=== PATIENT | female | born 1960 | race Caucasian/White ===

== ENCOUNTER 2024-02-15 13:26 | Inpatient (IN) | payer BC, MEDICARE, SELFPAY ==
--- NOTE | ~2024-02-15 | XR_ITS ---
EXAMINATION: XR CHEST CLINICAL INFORMATION: Severe pain at left upper quadrant. COMPARISON: None available. TECHNIQUE: Frontal view of the chest was obtained. FINDINGS: The lungs are mildly hypoexpanded. Mildly increased interstitial markings bilaterally. Hazy left basilar opacities. Streaky right basilar opacities. Retrocardiac density with lucency likely suggesting hiatal hernia and correlating to findings on CT performed on the same date. No pneumothorax. No right-sided pleural effusion. Trace left pleural effusion. The cardiomediastinal silhouette is within normal limits. Degenerative changes of thoracic spine. No acute osseous abnormality. IMPRESSION Hazy left basilar opacities which may be secondary to atelectasis or infectious/inflammatory etiology. Streaky right basilar opacities likely favoring atelectasis. Trace left pleural effusion. Large hiatal hernia better evaluated on CT done on the same date. Increased interstitial markings which may be exaggerated by low lung volumes or may represent mild interstitial edema.
--- NOTE | ~2024-02-15 | CT_ITS ---
EXAMINATION: CT CHEST, ABDOMEN WITHOUT CONTRAST. CLINICAL INFORMATION: severe left sided pain. COMPARISON: Abdominal and pelvic CT scan from approximately 30 minutes earlier today TECHNIQUE: Multidetector volumetric imaging was performed from the thoracic inlet through the pelvic brim without intravenous contrast. Oral contrast was given just prior to scanning. Sagittal and coronal reformatted images were obtained on the technologist workstation. This CT examination was performed using dose optimization techniques as appropriate, variously including the following: *Automated exposure control *Adjustment of mA and/or kV according to patient size (this includes techniques or standardized protocols for targeted exams where dose is matched to indication/reason for exam; i.e. extremities or head) *Use of iterative reconstruction technique DLP: 543 mGy-cm FINDINGS: CHEST: Lungs: There is persistent dense consolidation in the dependent left lower lobe and milder more likely atelectatic changes at the contralateral right base. Central airways are grossly unremarkable. No significant effusion or pneumothorax. Mediastinum: No bulky adenopathy. Moderate-sized hiatal hernia is again noted. Patient was given oral contrast just prior to scanning in the oral contrast is seen extending into the duodenum. No obstructive changes from the hiatal hernia. Coronary Artery Calcification: Absent Pericardium/Pleura: No significant effusion. No pleural mass or thickening. Chest Wall/Axilla: Unremarkable. ABDOMEN/PELVIS: Peritoneal Space:No significant free air or free fluid identified. Liver, Gallbladder, Biliary Tree: The non contrast liver is normal in size, shape, and attenuation. No focal hepatic lesion or biliary ductal dilatation is visualized on this noncontrast study. The gallbladder evidenced dental fundal fold but otherwise is unremarkable with no evidence of radiopaque gallstones, gallbladder wall thickening, or obvious pericholecystic inflammatory changes. Pancreas: Unremarkable. Spleen: Unremarkable. Adrenal Glands: Unremarkable. Kidneys and Ureters: The kidneys are normal in size, shape, and attenuation. Contrast is seen within both collecting systems. No hydronephrosis, hydroureter, or perinephric stranding. No calculi. Gastrointestinal Tract: Again a moderate-sized hiatal hernia seen. There does no obstructive changes seen with oral contrast given passing through this area into the visualized duodenum. No obstructive changes to the small bowel. Colon is decompressed. Incidental retrocecal appendix of no clinical significance. Abdominal Wall: No significant hernia is appreciated. Lymphovascular Structures: Minimal vascular calcification within the aorta. No bulky adenopathy CT/CT abdomen wo IV con IMPRESSION: 1. Persistent dense consolidation in the dependent left lower lobe suggesting aspiration or infectious etiology. 2. Moderate-sized hiatal hernia again noted. No obstructive changes to the bowel. No acute process seen within the abdomen.
--- NOTE | ~2024-02-15 | CT_ITS ---
EXAMINATION: CT ABDOMEN AND PELVIS WITH CONTRAST CLINICAL INFORMATION: Severe left flank pain COMPARISON: None available. TECHNIQUE: Multidetector volumetric images were obtained from the superior aspect of the liver through the pubic symphysis following administration 85 mL of Omnipaque 350 intravenous contrast. Sagittal and coronal reformatted images were obtained on the technologist's workstation. Oral contrast: No This CT examination was performed using dose optimization techniques as appropriate, variously including the following: *Automated exposure control *Adjustment of mA and/or kV according to patient size (this includes techniques or standardized protocols for targeted exams where dose is matched to indication/reason for exam; i.e. extremities or head) *Use of iterative reconstruction technique DLP: 586 mGy-cm FINDINGS: LUNG BASES: Moderate to large hiatal hernia is noted containing stomach. There is very small left pleural effusion. No right pleural effusion. IT and more consolidative opacities are noted in the left lung base in the lower lobe. Mild right basilar dependent atelectasis. Remainder of the visualized lung bases are grossly unremarkable. LIVER, GALLBLADDER, AND BILIARY TREE: The liver is normal in size, shape and attenuation. There is a 0.5 cm low-attenuation lesion in the hepatic segment 6 which is too small to characterize accurately. No biliary ductal dilatation is noted. The common bile duct is normal in caliber. No radiopaque filling defect is noted in the common bile duct. The gallbladder is unremarkable with no evidence of radiopaque gallstones, gallbladder wall thickening, or obvious pericholecystic inflammatory changes. PANCREAS: Unremarkable. SPLEEN: Unremarkable. ADRENAL GLANDS: Unremarkable. KIDNEYS AND URETERS: The kidneys are normal in size, shape, and attenuation. No hydronephrosis, hydroureter, or calculi seen. No perinephric stranding. BLADDER: Unremarkable. GASTROINTESTINAL TRACT: Moderate to large hiatal hernia containing stomach is noted. The stomach is decompressed. No abnormal small bowel dilatation. An appendix is normal. The colon is normal in caliber. No evidence of colonic wall thickening or pericolonic fat stranding. Scattered diverticulosis of the colon without acute diverticulitis. [id number] stool burden in the descending colon and rectosigmoid colon. Mild stool burden in the right-sided colon. Peritoneal cavity: There is no evidence of free intraperitoneal air or fluid. Mild stranding in the small bowel mesentery without associated adenopathy. The finding likely represent chronic mesenteric panniculitis. ABDOMINAL WALL: No significant hernia is appreciated. LYMPH NODES: Normal. VASCULAR: Unremarkable. PELVIC VISCERA: Unremarkable CT appearance of the uterus and adnexa. OSSEOUS STRUCTURES: An intraosseous hemangioma is noted in the body of T11. Mild osteopenia. No acute or suspicious osseous abnormalities are seen. CT/CT abdomen pelvis w IV con IMPRESSION: 1. No evidence of radiopaque urinary tract calculi, hydroureteronephrosis or perinephric stranding. 2. Moderate to large hiatal hernia containing stomach. 3. Colonic diverticulosis without acute diverticulitis. Moderate stool burden in the left-sided colon. 4. Very small left pleural effusion. Airspace opacities in the left lung base. Given the moderate to large hiatal hernia aspiration related changes need to be included in the differential along with other infectious or inflammatory etiology. 5. A 0.5 cm low-attenuation lesion in the hepatic segment 6 is too small to characterize accurately. However statistically may represent a cyst or a hemangioma in the absence of underlying history of malignancy. Fleischner guidelines were followed. Findings were discussed with Dr. Nunez on 02/15/2024 at 3:15 PM.
[2024-02-15 13:52] VITALS: BP 103/61; PULSE 101; RESP 18; TEMP 36.8; O2SAT 95; BMI 26.6
--- NOTE | 2024-02-15 13:52 | ED.GENADULT ---
HPI - General Adult General Chief complaint: General Medical Stated complaint: back pain Time Seen by Provider: 02/15/24 13:58 Source: patient Mode of arrival: ambulatory History of Present Illness HPI narrative: 63-year-old female without significant past medical history, no prescription medications presents with acute onset of left lower back pain radiating to the left shoulder since this morning, patient reports being lightheaded and diaphoretic. Patient denies any history renal colic. Related Data Allergies Allergy/AdvReac Type Severity Reaction Status Date / Time No Known Allergies Allergy Unverified 08/04/20 15:18 [No Known Allergies*] Review of Systems Review of Systems: Pertinent positives and negatives as stated in HPI [facility] Past Medical History Source: nursing notes reviewed Social History Social History Advance Directives: No Advance Directives Information Provided: No Physical Exam ED Vital Signs: Vital Signs - 24 hr 02/15/24 13:52 Temperature 98.2 F Pulse Rate 101 H Respiratory Rate 18 Blood Pressure 103/61 Pulse Oximetry 95 Oxygen Delivery Method Room Air BMI result Body Mass Index 26.6 VITAL SIGNS: Reviewed. GENERAL: Well developed, well nourished, in moderate distress. HEAD: Normocephalic/atraumatic EYES: PERRLA, EOMI EARS: Ext canals without abnormality NOSE: Nares patent bilateral OROPHARYNX: no oral lesions noted, posterior pharynx clear NECK: Supple, no adenopathy LUNGS: Normal breath sounds. No adventitious sounds or accessory muscle use. SpO2<95> CARDIOVASCULAR: Regular rate and rhythm without noted murmurs ABDOMEN: Soft, non-tender, non-distended with bowel sounds, no CVA tenderness MUSCULOSKELETAL: No tenderness, deformities, or effusions noted on gross inspection. EXTREMITIES: No cyanosis, clubbing or edema. SKIN: Inspection of the skin reveals no rashes NEUROLOGIC: Alert and oriented x 4. Strength and sensation to light touch were grossly intact x 4. Course Course Course Narrative: This is an RME: Additional HPI, ROS, PE not included below will be deferred to primary provider. 63 F hx of obesity presents w/ lower left back pain that shoots up to shoulder started suddenlt [employer] accompanied by dizziness, nausea, diaphoresis states she feels terrible . No hx of stones. No urinary issues. Still has her gal bladder. No trauma. PE- looks like shes in pain. Tachy, diaphoretic, uncomfortable. Plan- will take to the back room [address] Nunez aware. Medications Administered Discontinued Medications Generic Name Dose Route Start Last Admin Trade Name Freq PRN Reason Stop Dose Admin Diatrizoate Meglum/Diatrizoate Sod 30 ml 02/15/24 15:06 02/15/24 15:06 Diatrizoate Meglumine, Sodium 30 Ml Solution PO 02/15/24 15:07 30 ml ONCE ONE Administration Sodium Chloride 1,000 mls @ 999 mls/hr 02/15/24 14:15 02/15/24 16:23 Ns IV 02/15/24 15:15 Infused .Q1H1M CHANCE Infusion Piperacillin Sod/Tazobactam 50 mls @ 100 mls/hr 02/15/24 14:54 02/15/24 16:25 Sod 3.375 gm/ Sodium Chloride IV 02/15/24 15:23 100 mls/hr ONCE ONE Administration Iohexol 100 ml 02/15/24 14:38 02/15/24 14:38 Iohexol 350 Mg/Ml 100 Ml Infus..Btl IV 02/15/24 14:39 85 ml ONCE ONE Administration Ketorolac Tromethamine 15 mg 02/15/24 14:02 02/15/24 14:18 Ketorolac Tromethamine 30 Mg/Ml Vial IVPUSH 02/15/24 14:03 15 mg ONCE ONE Administration Medical Decision Making Medical Decision Making MDM Narrative: This is a 63-year-old female with history and clinical presentation concerning due to the severity of pain that patient is exhibiting in combination with acute onset. DDX: Dissection, renal colic, ACS INTERVENTION: IV fluids, IV, pain medication, labs, imaging, antibiotics Initial chest x-ray shows haziness within the left lower lobe of unclear significance.... Raising concern for pneumonia versus strange presentation for [place]. However, patient remained hemodynamically stable. On my prelim evaluation of CT scan do not appreciate any obvious vascular abnormalities, however there is a noted effusion the left lower lobe with possible infiltrate and an obvious hiatal hernia, given findings and acute onset raising concern for possible [place] hives and consulted with thoracic surgery. 1453: I discussed with Dr. Angelo regarding concerns of possible [place] hives given acute onset and severity of pain, he recommends repeat chest CT with p.o. contrast. 1514: [facility] reports left pleural effusion, but no mediastinal air. On re-evaluation patient does report improvement in pain, all imaging points toward left pleural effusion with infiltrate. I reviewed all investigations and patient has noted leukocytosis but no anemia or thrombocytopenia. Coagulation studies are within normal limits. Chemistry indices negative for MONTY/electrolyte or liver enzyme derangements, patient has a mild lactic acidosis which will likely resolve with fluid resuscitation. Urinalysis negative for UTI or hematuria. CT scan with p.o. contrast does not demonstrate extravasation. Although patient is hemodynamically stable, and reports some improvement in pain, I am concerned at the sudden onset in combination with CT scan findings and persistence of pain. I discussed with inpatient hospitalist who accepts admission. Differential Diagnosis Differential Diagnoses: The differential diagnosis associated with the presentation includes Please see the discussion above Admission/Observation Consideration of admission/observation: Escalation of care including admission/observation considered Please see the discussion above Consult Healthcare Provider Management of the patient was discussed with: Hospitalist and Registered Occupational Therapist Please see the discussion above Lab Data MDM Lab Attestation statement: I reviewed the patient's lab results. Please see the discussion above 02/15/24 14:16 02/15/24 14:15 Labs: Lab Results 02/15/24 02/15/24 02/15/24 Range/Units 14:15 14:16 15:46 WBC 16.5 H (4.8-10.8) X10*3/uL RBC 4.36 (4.20-5.50) X10*6/uL Hgb 13.6 (12.0-16.0) g/dl Hct 40.2 (37.0-47.0) % MCV 92.2 (80.0-98.0) fL MCH 31.2 (27.0-33.0) pg MCHC 33.8 (31.0-35.0) g/dl RDW 11.9 (11.0-16.0) % Plt Count 275 (160-400) X10*3/uL MPV 10.4 (9.4-12.3) fL Immature Gran % (Auto) Cancelled Neut % (Auto) Cancelled Lymph % (Auto) Cancelled [place] % (Auto) Cancelled Eos % (Auto) Cancelled Baso % (Auto) Cancelled Lymph # (Auto) Cancelled [place] # (Auto) Cancelled Eos # (Auto) Cancelled Baso # (Auto) Cancelled Abs Immat Gran (auto) Cancelled Absolute Neuts (auto) Cancelled Absolute Nucleated RBC 0.000 (0.0-0.012) X10*3/uL Nucleated RBC % (auto) 0.0 (0.0-0.2) /100WBC Neutrophils % (Manual) 85 H (45-73) % Band Neutrophils % 5 (3-5) % Lymphocytes % (Manual) 9 L (20-40) % Monocytes % (Manual) 1 L (2-11) % Abs Neuts (Manual) 14.9 H (2.0-8.3) X10*3/uL Lymphocytes # (Manual) 1.5 (1.2-4.9) X10*3/uL Monocytes # (Manual) 0.2 (0.1-1.2) X10*3/uL Toxic Vacuolation PRESENT Platelet Estimate NORMAL (NORMAL) Large Platelets PRESENT Plt Morphology Comment NOTED RBC Morphology NOTED Ovalocytes 1+ (5-14) /OIF PT 13.1 (11.1-13.3) SEC INR 1.1 (0.9-1.1) Sodium 138 (135-145) mmol/L Potassium 3.5 (3.3-5.1) mmol/L Chloride 104 (96-108) mmol/L Carbon Dioxide 24 (22-29) mmol/L Anion Gap 14 (12-20) BUN 14 (9-16) mg/dL Creatinine 0.76 (0.5-1.4) mg/dL Estim Creat Clear Calc 79.0 Estimated GFR > 60 Random Glucose 139 H (60-115) mg/dL Lactic Acid 2.3 H* (0.5-2.0) mmol/L Calcium 8.6 (8.4-10.2) mg/dL Magnesium 1.7 (1.6-2.6) mg/dL Total Bilirubin 0.8 (0.0-1.0) mg/dL AST 18 (5-31) U/L ALT 20 (0-31) U/L Alkaline Phosphatase 151 H (39-117) U/L Troponin I High Sens 3.0 (<3.5-17.0) ng/L Total Protein 6.5 (6.5-8.0) g/dL Albumin 3.8 (3.5-5.0) g/dL Urine Color Yellow Urine Appearance Clear Urine pH 7.0 (5.0-9.0) Ur Specific [place] >= 1.030 H (1.005-1.025) Urine Protein Negative (Neg-Trace) mg/dL Urine Glucose (UA) Negative (Negative) mg/dL Urine Ketones Negative (Negative) mg/dL Urine Blood Negative (Negative) Urine Nitrite Negative (Negative) Ur Leukocyte Esterase Negative (Negative) Independent Interpretation I performed an independent interpretation of an: EKG Interpretation: Normal sinus rhythm, HR-100, no STEMI, CA/QRS/QTC are within normal limits, there is no comparison EKG. Radiology Impression Discussion of test interpretation with radiology: I have reviewed the radiologist's reading. Radiologist Impression: Please see the discussion above Critical Care Time Critical Care Time Critical Care Time: Yes Total Critical Care Time: 60 Attestation: I personally attest to this time spent taking care of the patient. Discharge Plan Discharge Clinical Impression: Pneumonia, Intractable pain Patient Disposition: Admitted As Inpatient Instructions: Pneumonia (ED)
--- NOTE | 2024-02-15 13:53 | ECG_ITS ---
Test Reason : L SHOULDER PAIN Blood Pressure : / mmHG Vent. Rate : 100 BPM Atrial Rate : 100 BPM P-R Int : 174 ms QRS Dur : 100 ms QT Int : 346 ms P-R-T Axes : 054 089 042 degrees QTc Int : 446 ms Normal sinus rhythm Low voltage QRS Incomplete right bundle branch block Septal infarct , age undetermined Abnormal ECG When compared with ECG of 06-JUL-2018 15:35, Septal infarct is now Present Referred By: Orin Peoples Electronically Signed By:Alexandro Law
[2024-02-15] MEDS: Ketorolac Tromethamine 30 MG/ML VIAL 15 MG IVPUSH (14:18)
[2024-02-15] MEDS: 0.9 % Sodium Chloride 1,000 ML 999 ML IV ×2 (14:18→17:47)
[2024-02-15 14:20] LABS: Hematocrit 40.2 % (37.0-47.0); Hemoglobin 13.6 g/dl (12.0-16.0); Mean Corpuscular HGB Conc 33.8 g/dl (31.0-35.0); Mean Corpuscular Hemoglobin 31.2 pg (27.0-33.0); Mean Corpuscular Volume 92.2 fL (80.0-98.0); Mean Platelet Volume 10.4 fL (9.4-12.3); Platelet Count 275 X10*3/uL (160-400); Red Blood Count 4.36 X10*6/uL (4.20-5.50); Red Cell Distribution Width 11.9 % (11.0-16.0)
[2024-02-15 14:22] LABS: WBC ABN SCTR FOR CBC 1
[2024-02-15 14:35] LABS: INTERNATIONAL NORM RATIO 1.1 (0.9-1.1); Prothrombin Time 13.1 SEC (11.1-13.3)
[2024-02-15 14:38] LABS: Alanine Aminotransferase 20 U/L (0-31); Albumin Level 3.8 g/dL (3.5-5.0); Alkaline Phosphatase 151 U/L (39-117); Anion Gap 14 (12-20); Aspartate Amino Transferase 18 U/L (5-31); Bilirubin Total 0.8 mg/dL (0.0-1.0); Blood Urea Nitrogen 14 mg/dL (9-16); Calcium 8.6 mg/dL (8.4-10.2); Carbon Dioxide 24 mmol/L (22-29); Chloride 104 mmol/L (96-108); Estimated Glomerular Filt Rate > 60; Glucose Random 139 mg/dL (60-115); Magnesium 1.7 mg/dL (1.6-2.6); Potassium 3.5 mmol/L (3.3-5.1); Sodium 138 mmol/L (135-145); Total Protein 6.5 g/dL (6.5-8.0)
[2024-02-15] MEDS: iohexoL 350 MG/ML 100 ML INFUS..BTL IV (14:38)
[2024-02-15 14:39] LABS: Band Neutrophils Percent 5 % (3-5); Monocytes Percent Manual 1 % (2-11)
[2024-02-15 14:40] LABS: Lymphocytes Percent Manual 9 % (20-40); Neutrophils Percent Manual 85 % (45-73)
[2024-02-15 14:42] LABS: Ovalocytes 1+ (5-14) /OIF; RBC Morphology NOTED; Toxic Vacuolation PRESENT
[2024-02-15 14:43] LABS: Large Platelet PRESENT; Platelet Estimate NORMAL (NORMAL); Platelet Morphology Comment NOTED
[2024-02-15 14:44] LABS: Lymphocytes Absolute Manual 1.5 X10*3/uL (1.2-4.9); Monocytes Absolute Manual 0.2 X10*3/uL (0.1-1.2); Neutrophils Absolute Manual 14.9 X10*3/uL (2.0-8.3); White Blood Count 16.5 X10*3/uL (4.8-10.8)
--- NOTE | 2024-02-15 14:51 | PC.NURSE ---
alert and oriented, respirations even and unlabored. IV established, labs obtained and sent. medicated per the MAR w/ fluids infusing at this time. call trotter within reach
[2024-02-15] MEDS: Diatrizoate Meglumine, Sodium 30 ML SOLUTION PO (15:06)
[2024-02-15 15:57] LABS: Appearance Urine Clear; Color Urine Yellow; Glucose Urine UA Negative (Negative); Leukocyte Esterase Urine Negative (Negative); Nitrite Urine Negative (Negative); Specific Gravity - Urine >= 1.030 (1.005-1.025); Urine Blood Negative (Negative); Urine Ketones Negative (Negative); Urine Protein Negative (Neg-Trace)
[2024-02-15 16:05] LABS: Lactic Acid 2.3 mmol/L (0.5-2.0)
[2024-02-15] MEDS: Piperacillin Sodium/Tazobactam 3.375 GM in 0.9 % Sodium Chloride 50 ML IV (16:25)
[2024-02-15] MEDS: fentaNYL citrate/PF 100 MCG/2 ML VIAL 25 MCG IVPUSH (17:09)
[2024-02-15 17:14] VITALS: BP 95/50; PULSE 91; RESP 16; TEMP 37; O2SAT 95
--- NOTE | 2024-02-15 17:17 | PHA.MEDREC ---
Pharmacy Consult ? Medication Reconciliation Pharmacy has completed the medication reconciliation. spoke with patient to confirm medications. Patient reports she was on doxycycline but stopped taking it about a week ago. She reports taking prednisone and sudafed for 5 days and she is alternating them throughout the day ( sudafed in AM, prednisone at noon, and another sudafed at lunch time). She did not take them today, last took yesterday. Her last day would have been tomorrow if she had them today. She reports having the albuterol inhaler at home but hasn't really used it.
[2024-02-15 17:50] LABS: Reflex Lactate? Lactic Acid Added
--- NOTE | 2024-02-15 17:53 | PC.NURSE ---
patient was found to be hypotensive. second liter of fluids infusing. patient continues to endorse pain, plan for admission at this time
[2024-02-15 19:16] VITALS: BP 96/58; PULSE 98; RESP 16; O2SAT 94
--- NOTE | 2024-02-15 19:34 | PM.IMHP ---
History of Present Illness Date of Service: 02/15/24 Attending physician on admission: Natalie Dejesus Chief Complaint: back pain 63-year-old female without any significant past medical history presented to the ED earlier today for evaluation of sudden sharp left-sided low back pain radiating to the left scapula with associated shortness of breath and cough. States she was diagnosed with a sinus infection and has been taking prednisone for the last 4 days with improvement in sinus pressure but developed cough 2 days ago. She states over the last few months she has had waves of nausea but no vomiting. Denies any sore throat, fevers, chills, globus sensation, dysphagia, vomiting, abdominal pain, wheezing, lightheadedness, chest pain. In the ED, pt had soft blood pressures improvement to 96/58 on admission with mild tachycardia to 101. No hypoxia. There is a leukocytosis of 16.5 with left shift. Renal function electrolyte levels normal. Lactic acid 2.3, repeat pending. Troponin 3. Urinalysis unremarkable. CT chest and CT abdomen/pelvis shows persistent dense consolidation in the dependent left lower lobe suggestive of aspiration or infectious etiology. There is also moderate to large size hiatal hernia without any obstructive changes in the bowel or any other acute process within the abdomen. CT abdomen/pelvis with contrast also shows very small left-sided pleural effusion and airspace opacities in the left lung base again consistent with aspiration. In the ED has been given 2 L IV NS, ketorolac, fentanyl, Zosyn. Review of Systems Review of Systems: General: No fevers, malaise, unintentional weight loss HEENT: No blurred vision, diplopia. No sore throat, nasal congestion, rhinorrhea, sinus pain, ear pain Cardiovascular: No chest pain, palpitations, or leg edema Respiratory: +sob, +cough. No wheezing GI: +nausea. No abdominal pain, vomiting, diarrhea, constipation, melena, hematochezia : No dysuria, hematuria, increased urinary frequency, decreased urinary output MSK: No myalgia. +back pain Neuro: No headaches, weakness, paresthesias Skin: No rashes or lesions [facility] Medical History (Updated 02/15/24 @ 19:41 by RENETTA Howard) No pertinent past medical history Social History Advance Directives: No Advance Directives Information Provided: No Meds Allergies Allergy/AdvReac Type Severity Reaction Status Date / Time No Known Allergies Allergy Unverified 08/04/20 15:18 [No Known Allergies*] Active Medications: Current Medications Acetaminophen (Acetaminophen 325 Mg Tablet) 650 mg PO Q6H PRN PRN Reason: Pain, Mild (Pain Scale 1-3) Enoxaparin Sodium (Enoxaparin Sodium 40 Mg/0.4 Ml Syringe) 40 mg SUBCUT Q24H CHANCE Sodium Chloride (Ns) 1,000 mls @ 100 mls/hr IVCONT .Q10H CHANEC Ampicillin Sodium/Sulbactam (Sodium 3 gm/ Sodium Chloride) 100 mls @ 200 mls/hr IV Q6H CHANCE Ondansetron HCl (Ondansetron Hcl 4 Mg/2 Ml Vial) 4 mg IVPUSH Q8H PRN PRN Reason: Nausea and Vomiting Senna (Sennosides 8.6 Mg Tablet) 17.2 mg PO BEDTIME PRN PRN Reason: Constipation Sodium Chloride (0.9 % Sodium Chloride Flush 3 Ml Syringe) 3 ml IVFLUSH QSHIFT [facility] Home Medications Medication Instructions Recorded Confirmed Last Taken Type albuterol sulfate 90 mcg/actuation 2 puff inhalation Q6H PRN 02/15/24 02/15/24 Unknown History aerosol inhaler Shortness Of Breath Or Wheezing fluoride (sodium) 1.1 % dental 1 appl PO Q OTHER DAY 02/15/24 02/15/24 Unknown History paste prednisone 10 mg tablet 50 mg PO DAILY@1200 02/15/24 02/15/24 02/14/24 History pseudoephedrine HCl 30 mg tablet 60 mg PO BID@0800,1500 02/15/24 02/15/24 02/14/24 History (Sudafed) Physical Exam Vital Signs and Narrative: Vital Signs: Last Vital Signs Temp 98.6 F 02/15/24 17:14 Pulse 98 02/15/24 19:16 Resp 16 02/15/24 19:16 BP 96/58 L 02/15/24 19:16 Pulse Ox 94 02/15/24 19:16 O2 Del Method Room Air 02/15/24 19:16 BMI result Body Mass Index 26.6 Constitutional - Awake and Alert, No apparent distress but weak appearing Eyes - PERRLA, EOMI Cardiovascular - S1S2, RRR, No edema Respiratory - Normal lung expansion, Normal respiratory effort, No respiratory distress, CTA bilaterally Gastrointestinal - NT / ND; +BS; No rebound or guarding Extremities - no calf tenderness bilaterally, no swelling Skin - Warm/Dry Neurological - Alert & oriented x3 Psychological - Appropriate affect Results Labs 02/15/24 14:16 02/15/24 14:15 Labs: Laboratory Results - last 24 hr 02/15/24 02/15/24 02/15/24 14:15 14:16 15:46 MCV 92.2 MCH 31.2 MCHC 33.8 RDW 11.9 Plt Count 275 MPV 10.4 Immature Gran % (Auto) Cancelled Neut % (Auto) Cancelled Lymph % (Auto) Cancelled [place] % (Auto) Cancelled Eos % (Auto) Cancelled Baso % (Auto) Cancelled Lymph # (Auto) Cancelled [place] # (Auto) Cancelled Eos # (Auto) Cancelled Baso # (Auto) Cancelled Abs Immat Gran (auto) Cancelled Absolute Neuts (auto) Cancelled Absolute Nucleated RBC 0.000 Nucleated RBC % (auto) 0.0 Neutrophils % (Manual) 85 H Band Neutrophils % 5 Lymphocytes % (Manual) 9 L Monocytes % (Manual) 1 L Abs Neuts (Manual) 14.9 H Lymphocytes # (Manual) 1.5 Monocytes # (Manual) 0.2 Toxic Vacuolation PRESENT Platelet Estimate NORMAL Large Platelets PRESENT Plt Morphology Comment NOTED RBC Morphology NOTED Ovalocytes 1+ (5-14) PT 13.1 INR 1.1 Anion Gap 14 Estim Creat Clear Calc 79.0 Estimated GFR > 60 Random Glucose 139 H Lactic Acid 2.3 H* Calcium 8.6 Magnesium 1.7 Total Bilirubin 0.8 AST 18 ALT 20 Alkaline Phosphatase 151 H Troponin I High Sens 3.0 Total Protein 6.5 Albumin 3.8 Urine Color Yellow Urine Appearance Clear Urine pH 7.0 Ur Specific [place] >= 1.030 H Urine Protein Negative Urine Glucose (UA) Negative Urine Ketones Negative Urine Blood Negative Urine Nitrite Negative Ur Leukocyte Esterase Negative Imaging Radiologist's Impressions: Impressions Abdomen/Pelvis CT 02/15/24 14:50 IMPRESSION: 1. No evidence of radiopaque urinary tract calculi, hydroureteronephrosis or perinephric stranding. 2. Moderate to large hiatal hernia containing stomach. 3. Colonic diverticulosis without acute diverticulitis. Moderate stool burden in the left-sided colon. 4. Very small left pleural effusion. Airspace opacities in the left lung base. Given the moderate to large hiatal hernia aspiration related changes need to be included in the differential along with other infectious or inflammatory etiology. 5. A 0.5 cm low-attenuation lesion in the hepatic segment 6 is too small to characterize accurately. However statistically may represent a cyst or a hemangioma in the absence of underlying history of malignancy. Fleischner guidelines were followed. Findings were discussed with Dr. Nunez on 02/15/2024 at 3:[address] 02/15/24 15:16 IMPRESSION: 1. Persistent dense consolidation in the dependent left lower lobe suggesting aspiration or infectious etiology. 2. Moderate-sized hiatal hernia again noted. No obstructive changes to the bowel. No acute process seen within the abdomen. Chest CT 02/15/24 15:16 IMPRESSION: 1. Persistent dense consolidation in the dependent left lower lobe suggesting aspiration or infectious etiology. 2. Moderate-sized hiatal hernia again noted. No obstructive changes to the bowel. No acute process seen within the abdomen. Assessment and Plan (1) Large hiatal hernia: Status: Acute (2) Intractable pain: Status: Acute (3) Pneumonia: Status: Acute Plan 63-year-old female without any significant past medical history admitted for LLL pneumonia with severe sepsis. #LLL pneumonia with severe sepsis -leukocytosis 16.5, tachycardic. Lactic acidosis 2.3, improved to 1.3 on admission following IV fluids. -CT shows LLL pneumonia, likely aspiration with large hiatal hernia -IV unasyn (initiated 02/14) -Passed bedside swallow evaluation -symptomatic management -follow cbc, cultures #Large hiatal hernia -likely contributing to above -general surgery consult -start ppi #Soft blood pressures -continue IVF -monitor bp dvt prophylaxis- lovenox full code pt requires inpt stay at least 2 midnights for management of LLL pneumonia with severe sepsis requiring ov abx, close monitoring, and expert consultation Quality Stroke Does the patient have a stroke diagnosis?: No VTE Prior VTE?: No VTE Risk Level:: Medical - moderate - high VTE Device Contraindication: Treatment Not Indicated VTE Drug Contraindication: N/A - Med Ordered
[2024-02-15 19:39] LABS: ~Lactic Acid-LAB USE ONLY 1.3 mmol/L (0.5-2.0)
[2024-02-15] MEDS: 0.9 % Sodium Chloride 1,000 ML 100 ML IVCONT (20:01)
[2024-02-15] MEDS: Enoxaparin Sodium 40 MG/0.4 ML SYRINGE SUBCUT (20:08)
[2024-02-15] MEDS: Ampicillin Sodium/Sulbactam Na 3 GM in 0.9 % Sodium Chloride 100 ML IV (20:08)
[2024-02-15] MEDS: Morphine Sulfate 2 MG/ML CARTRIDGE IVPUSH (20:08)
[2024-02-15 20:15] VITALS: BP 97/53; PULSE 98; RESP 16; TEMP 37; O2SAT 98
--- NOTE | 2024-02-15 20:15 | PC.NURSE ---
Lizeth JACKSON aware of bp; to increase ivf to 125 ml/hr.
[2024-02-16] MEDS: Ampicillin Sodium/Sulbactam Na 3 GM in 0.9 % Sodium Chloride 100 ML IV ×4 (02:20→20:39)
[2024-02-16 03:14] VITALS: BP 110/59; PULSE 80; RESP 20; TEMP 36.1; O2SAT 98
[2024-02-16] MEDS: 0.9 % Sodium Chloride 1,000 ML 100 ML IVCONT ×2 (05:20→14:25)
[2024-02-16] MEDS: Omeprazole 40 MG CAPSULE.DR PO (05:35)
[2024-02-16] MEDS: Acetaminophen 325 MG TABLET 650 MG PO (05:38)
[2024-02-16 06:23] LABS: MANUAL DIFF FLAG NO
[2024-02-16 07:06] LABS: Basophils Absolute Auto 0.1 X10*3/uL (0.0-0.2); Basophils Percent Auto 0.3 % (0-2); Eosinophils Percent Auto 0.2 % (0-4); Hematocrit 34.1 % (37.0-47.0); Hemoglobin 11.2 g/dl (12.0-16.0); Imm Gran Abs Auto 0.05 X10*3/uL (0.00-0.03); Imm Gran Pct Auto 0.3 % (0.0-0.4); Lymphocytes Absolute Auto 1.6 X10*3/uL (1.2-4.9); Lymphocytes Percent Auto 9.2 % (20-40); Mean Corpuscular HGB Conc 32.8 g/dl (31.0-35.0); Mean Corpuscular Hemoglobin 31.3 pg (27.0-33.0); Mean Corpuscular Volume 95.3 fL (80.0-98.0); Mean Platelet Volume 11.6 fL (9.4-12.3); Monocytes Absolute Auto 0.8 X10*3/uL (0.1-1.2); Monocytes Percent Auto 4.8 % (2-11); Neutrophils Absolute Auto 15.1 x10*3/uL (2.0-8.3); Neutrophils Percent Auto 85.2 % (45-73); Platelet Count 243 X10*3/uL (160-400); Red Blood Count 3.58 X10*6/uL (4.20-5.50); White Blood Count 17.7 X10*3/uL (4.8-10.8)
[2024-02-16 07:25] VITALS: BP 106/55; PULSE 74; RESP 18; TEMP 36.1; O2SAT 92
--- NOTE | 2024-02-16 08:43 | MHC.CM.PN ---
CM met with Patient at bedside and assisted her with the completion of a HCP; she named her /Brandon as her Agent. Patient lives in a house with her and Daughter and she required no services nor DME SUPERINTENDENT TRANSPORTATION. Home/self care is the goal and CM has initiated and will follow for dc planning. Patient has no PCP; PCP brochure was provided.
--- NOTE | 2024-02-16 10:08 | HO.PM.IMPN ---
Subjective Subjective Date of Service: 02/16/24 Physical Exam Vital Signs: Vital Signs: Last Vital Signs Temp 97.0 F 02/16/24 07:25 Pulse 74 02/16/24 07:25 Resp 18 02/16/24 07:25 BP 106/55 L 02/16/24 07:25 Pulse Ox 92 02/16/24 07:25 O2 Del Method Room Air 02/16/24 07:25 BMI result Body Mass Index 26.6 Objective Data Active Medications Acetaminophen (Acetaminophen 325 Mg Tablet) 650 mg PO Q6H PRN PRN Reason: Pain, Mild (Pain Scale 1-3) Last Admin: 02/16/24 05:38 Dose: 650 mg Documented By: MEGHAN Albuterol Sulfate (Albuterol Sulfate 90 Mcg 8 Gm Inhaler) 2 puff INHALE Q6H PRN PRN Reason: Shortness Of Breath Or Wheezing Enoxaparin Sodium (Enoxaparin Sodium 40 Mg/0.4 Ml Syringe) 40 mg SUBCUT Q24H [facility] Last Admin: 02/15/24 20:08 Dose: 40 mg Documented By: STEVENSON Guaifenesin (Guaifenesin La 600 Mg Tab.Er.12h) 600 mg PO BID CHANCE Sodium Chloride (Ns) 1,000 mls @ 100 mls/hr IVCONT .Q10H [facility] Last Admin: 02/16/24 05:20 Dose: 100 mls/hr Documented By: ELMER Ampicillin Sodium/Sulbactam (Sodium 3 gm/ Sodium Chloride) 100 mls @ 200 mls/hr IV Q6H [facility] Last Infusion: 02/16/24 02:51 Dose: Infused Documented By: MEGHAN Morphine Sulfate (Morphine Sulfate 2 Mg/Ml Cartridge) 2 mg IVPUSH Q4H PRN; Protocol PRN Reason: Pain, Severe (Pain Scale 7-10) Last Admin: 02/15/24 20:08 Dose: 2 mg Documented By: STEVENSON Omeprazole (Omeprazole 40 Mg Capsule.Dr) 40 mg PO DAILY@0630 [facility] Last Admin: 02/16/24 05:35 Dose: 40 mg Documented By: MEGHAN Ondansetron HCl (Ondansetron Hcl 4 Mg/2 Ml Vial) 4 mg IVPUSH Q8H PRN PRN Reason: Nausea and Vomiting Oxycodone HCl (Oxycodone Hcl Immed Release 5 Mg Tablet) 5 mg PO Q4H PRN PRN Reason: Pain, Moderate(Pain Scale 4-6) Prednisone (Prednisone 10 Mg Tablet) 50 mg PO DAILY@1200 [facility] Stop: 02/17/24 12:01 Pseudoephedrine HCl (Pseudoephedrine Hcl 30 Mg Tablet) 60 mg PO BID@0800,1500 [facility] Stop: 02/17/24 15:01 Senna (Sennosides 8.6 Mg Tablet) 17.2 mg PO BEDTIME PRN PRN Reason: Constipation Sodium Chloride (0.9 % Sodium Chloride Flush 3 Ml Syringe) 3 ml IVFLUSH QSHIFT [facility] Last Admin: 02/15/24 23:49 Dose: Not Given Documented By: MEGHAN Non-Admin Reason: IV Running Labs 02/16/24 05:49 02/15/24 14:15 Labs: Laboratory Results - last 24 hr 02/15/24 02/15/24 02/15/24 14:15 14:16 15:46 MCV 92.2 MCH 31.2 MCHC 33.8 RDW 11.9 Plt Count 275 MPV 10.4 Immature Gran % (Auto) Cancelled Neut % (Auto) Cancelled Lymph % (Auto) Cancelled [place] % (Auto) Cancelled Eos % (Auto) Cancelled Baso % (Auto) Cancelled Lymph # (Auto) Cancelled [place] # (Auto) Cancelled Eos # (Auto) Cancelled Baso # (Auto) Cancelled Abs Immat Gran (auto) Cancelled Absolute Neuts (auto) Cancelled Absolute Nucleated RBC 0.000 Nucleated RBC % (auto) 0.0 Neutrophils % (Manual) 85 H Band Neutrophils % 5 Lymphocytes % (Manual) 9 L Monocytes % (Manual) 1 L Abs Neuts (Manual) 14.9 H Lymphocytes # (Manual) 1.5 Monocytes # (Manual) 0.2 Toxic Vacuolation PRESENT Platelet Estimate NORMAL Large Platelets PRESENT Plt Morphology Comment NOTED RBC Morphology NOTED Ovalocytes 1+ (5-14) PT 13.1 INR 1.1 Anion Gap 14 Estim Creat Clear Calc 79.0 Estimated GFR > 60 Random Glucose 139 H Lactic Acid 2.3 H* Lactic Acid F/U @ 2Hr Calcium 8.6 Magnesium 1.7 Total Bilirubin 0.8 AST 18 ALT 20 Alkaline Phosphatase 151 H Troponin I High Sens 3.0 Total Protein 6.5 Albumin 3.8 Urine Color Yellow Urine Appearance Clear Urine pH 7.0 Ur Specific [place] >= 1.030 H Urine Protein Negative Urine Glucose (UA) Negative Urine Ketones Negative Urine Blood Negative Urine Nitrite Negative Ur Leukocyte Esterase Negative 02/15/24 02/16/24 19:25 05:49 MCV 95.3 MCH 31.3 MCHC 32.8 RDW 12.0 Plt Count 243 MPV 11.6 Immature Gran % (Auto) 0.3 Neut % (Auto) 85.2 H Lymph % (Auto) 9.2 L [place] % (Auto) 4.8 Eos % (Auto) 0.2 Baso % (Auto) 0.3 Lymph # (Auto) 1.6 [place] # (Auto) 0.8 Eos # (Auto) 0.0 Baso # (Auto) 0.1 Abs Immat Gran (auto) 0.05 H Absolute Neuts (auto) 15.1 H Absolute Nucleated RBC 0.000 Nucleated RBC % (auto) 0.0 Neutrophils % (Manual) Band Neutrophils % Lymphocytes % (Manual) Monocytes % (Manual) Abs Neuts (Manual) Lymphocytes # (Manual) Monocytes # (Manual) Toxic Vacuolation Platelet Estimate Large Platelets Plt Morphology Comment RBC Morphology Ovalocytes PT INR Anion Gap Estim Creat Clear Calc Estimated GFR Random Glucose Lactic Acid Lactic Acid F/U @ 2Hr 1.3 Calcium Magnesium Total Bilirubin AST ALT Alkaline Phosphatase Troponin I High Sens Total Protein Albumin Urine Color Urine Appearance Urine pH Ur Specific [place] Urine Protein Urine Glucose (UA) Urine Ketones Urine Blood Urine Nitrite Ur Leukocyte Esterase Assessment and Plan (1) Large hiatal hernia: Status: Acute (2) Pneumonia: Status: Acute Plan 63-year-old female without any significant past medical history admitted for LLL pneumonia with severe sepsis. CAP vs aspiration with severe sepsis sepsis resolved no hypoxia chest CT shows LLL pneumonia, likely aspiration with large hiatal hernia continue IV unasyn (initiated 02/14) supplemental oxygen as needed to titrate to sat >92% Large hiatal hernia general surgery consult pending continue PPI Low blood pressures continue IVF monitor bp closely DVT prophylaxis with lovenox Attending Dr. Oscar full code continue hospital stay for management of LLL pneumonia with severe sepsis requiring ov abx, close monitoring, and expert consultation Quality Stroke Does the patient have a stroke diagnosis?: No VTE Prior VTE?: No VTE Risk Level:: Medical - moderate - high VTE Device Contraindication: Treatment Not Indicated VTE Drug Contraindication: N/A - Med Ordered
[2024-02-16] MEDS: guaiFENesin LA 600 MG TAB.ER.12H PO ×2 (10:10→20:39)
[2024-02-16] MEDS: Pseudoephedrine HCL 30 MG TABLET 60 MG PO ×2 (10:10→14:55)
[2024-02-16] MEDS: Morphine Sulfate 2 MG/ML CARTRIDGE IVPUSH ×2 (10:17→20:39)
[2024-02-16] MEDS: predniSONE 10 MG TABLET 50 MG PO (12:39)
--- NOTE | 2024-02-16 14:14 | PM.CNGS ---
History of Present Illness Consult details Consult date: 02/16/24 Requesting physician: Brenda Vinson Narrative: THE PATIENT IS A 63-YEAR-OLD FEMALE WHO HAS BEEN HAVING significant back pain and came to the emergency room for this. It was noted that she had elevated white count was a little short of breath and had what looks like a left sided lower pneumonia maybe aspiration. She does have a moderate size paraesophageal hernia that she was unaware off. She denies having any surgeries before in her upper abdomen. She used to have issues with GERD and used to take medications for it but it improved and currently does not have regular issues with this. Review of Systems Review of Systems: Yes all other systems are reviewed and are negative [facility] Past Medical History Medical History (Updated 02/15/24 @ 19:41 by RENETTA Howard) No pertinent past medical history Social History Social History Household Members: Spouse Housing: House Do you presently have visiting nurse or other home services: No Patient Tobacco Use Status: Never used Tobacco service: No Meds Allergies Allergy/AdvReac Type Severity Reaction Status Date / Time No Known Allergies Allergy Unverified 08/04/20 15:18 [No Known Allergies*] Active Medications: Current Medications Acetaminophen (Acetaminophen 325 Mg Tablet) 650 mg PO Q6H PRN PRN Reason: Pain, Mild (Pain Scale 1-3) Last Admin: 02/16/24 05:38 Dose: 650 mg Albuterol Sulfate (Albuterol Sulfate 90 Mcg 8 Gm Inhaler) 2 puff INHALE Q6H PRN PRN Reason: Shortness Of Breath Or Wheezing Enoxaparin Sodium (Enoxaparin Sodium 40 Mg/0.4 Ml Syringe) 40 mg SUBCUT Q24H [facility] Last Admin: 02/15/24 20:08 Dose: 40 mg Guaifenesin (Guaifenesin La 600 Mg Tab.Er.12h) 600 mg PO BID CHANCE Last Admin: 02/16/24 10:10 Dose: 600 mg Sodium Chloride (Ns) 1,000 mls @ 100 mls/hr IVCONT .Q10H [facility] Last Admin: 02/16/24 05:20 Dose: 100 mls/hr Ampicillin Sodium/Sulbactam (Sodium 3 gm/ Sodium Chloride) 100 mls @ 200 mls/hr IV Q6H [facility] Last Infusion: 02/16/24 10:59 Dose: Infused Morphine Sulfate (Morphine Sulfate 2 Mg/Ml Cartridge) 2 mg IVPUSH Q4H PRN; Protocol PRN Reason: Pain, Severe (Pain Scale 7-10) Last Admin: 02/16/24 10:17 Dose: 2 mg Omeprazole (Omeprazole 40 Mg Capsule.Dr) 40 mg PO DAILY@0630 [facility] Last Admin: 02/16/24 05:35 Dose: 40 mg Ondansetron HCl (Ondansetron Hcl 4 Mg/2 Ml Vial) 4 mg IVPUSH Q8H PRN PRN Reason: Nausea and Vomiting Oxycodone HCl (Oxycodone Hcl Immed Release 5 Mg Tablet) 5 mg PO Q4H PRN PRN Reason: Pain, Moderate(Pain Scale 4-6) Prednisone (Prednisone 10 Mg Tablet) 50 mg PO DAILY@1200 [facility] Stop: 02/17/24 12:01 Last Admin: 02/16/24 12:39 Dose: 50 mg Pseudoephedrine HCl (Pseudoephedrine Hcl 30 Mg Tablet) 60 mg PO BID@0800,1500 [facility] Stop: 02/17/24 15:01 Last Admin: 02/16/24 10:10 Dose: 60 mg Senna (Sennosides 8.6 Mg Tablet) 17.2 mg PO BEDTIME PRN PRN Reason: Constipation Sodium Chloride (0.9 % Sodium Chloride Flush 3 Ml Syringe) 3 ml IVFLUSH QSHIFT [facility] Last Admin: 02/16/24 10:13 Dose: Not Given Home Medications Medication Instructions Recorded Confirmed Last Taken Type albuterol sulfate 90 mcg/actuation 2 puff inhalation Q6H PRN 02/15/24 02/15/24 Unknown History aerosol inhaler Shortness Of Breath Or Wheezing fluoride (sodium) 1.1 % dental 1 appl PO Q OTHER DAY 02/15/24 02/15/24 Unknown History paste prednisone 10 mg tablet 50 mg PO DAILY@1200 02/15/24 02/15/24 02/14/24 History pseudoephedrine HCl 30 mg tablet 60 mg PO BID@0800,1500 02/15/24 02/15/24 02/14/24 History (Sudafed) Physical Exam Vital Signs: Vital Signs: Last Vital Signs Temp 97.0 F 02/16/24 07:25 Pulse 74 02/16/24 07:25 Resp 18 02/16/24 07:25 BP 106/55 L 02/16/24 07:25 Pulse Ox 92 02/16/24 07:25 O2 Del Method Room Air 02/16/24 07:25 BMI result Body Mass Index 26.6 Const: General: cooperative, healthy appearing, comfortable and no acute distress Orientation/consciousness: patient oriented x3 HEENT: Head: Yes normal to inspection Eyes: General: appearance normal, both eyes and all related structures Resp: Effort & Inspection: normal respiratory effort Auscultation: clear to auscultation bilaterally Cardio: Rate: regular rate Rhythm: regular rhythm GI: Other: Abdomen is soft nondistended nontender active bowel sounds no incisions Inspection: Yes normal to inspection Neuro: General: patient oriented x3 Cranial nerves: Yes CN's II-XII intact bilaterally Extrem: General: Yes normal to inspection Psych: Appearance: grossly normal Results Labs 02/16/24 05:49 02/15/24 14:15 Labs: Abnormal lab results 02/15/24 02/15/24 02/15/24 Range/Units 14:15 14:16 15:46 WBC 16.5 H (4.8-10.8) X10*3/uL RBC (4.20-5.50) X10*6/uL Hgb (12.0-16.0) g/dl Hct (37.0-47.0) % Neut % (Auto) (45-73) % Lymph % (Auto) (20-40) % Abs Immat Gran (auto) (0.00-0.03) X10*3/uL Absolute Neuts (auto) (2.0-8.3) x10*3/uL Neutrophils % (Manual) 85 H (45-73) % Lymphocytes % (Manual) 9 L (20-40) % Monocytes % (Manual) 1 L (2-11) % Abs Neuts (Manual) 14.9 H (2.0-8.3) X10*3/uL Random Glucose 139 H (60-115) mg/dL Lactic Acid 2.3 H* (0.5-2.0) mmol/L Alkaline Phosphatase 151 H (39-117) U/L Ur Specific [place] >= 1.030 H (1.005-1.025) 02/16/24 Range/Units 05:49 WBC 17.7 H (4.8-10.8) X10*3/uL RBC 3.58 L (4.20-5.50) X10*6/uL Hgb 11.2 L (12.0-16.0) g/dl Hct 34.1 L (37.0-47.0) % Neut % (Auto) 85.2 H (45-73) % Lymph % (Auto) 9.2 L (20-40) % Abs Immat Gran (auto) 0.05 H (0.00-0.03) X10*3/uL Absolute Neuts (auto) 15.1 H (2.0-8.3) x10*3/uL Neutrophils % (Manual) (45-73) % Lymphocytes % (Manual) (20-40) % Monocytes % (Manual) (2-11) % Abs Neuts (Manual) (2.0-8.3) X10*3/uL Random Glucose (60-115) mg/dL Lactic Acid (0.5-2.0) mmol/L Alkaline Phosphatase (39-117) U/L Ur Specific [place] (1.005-1.025) Short CBC 02/15/24 02/16/24 Range/Units 14:16 05:49 WBC 16.5 H 17.7 H (4.8-10.8) X10*3/uL Hgb 13.6 11.2 L (12.0-16.0) g/dl Hct 40.2 34.1 L (37.0-47.0) % Plt Count 275 243 (160-400) X10*3/uL BMP 02/15/24 14:15 Sodium 138 Potassium 3.5 Chloride 104 Carbon Dioxide 24 BUN 14 Creatinine 0.76 Calcium 8.6 Liver Function 02/15/24 Range/Units 14:15 Total Bilirubin 0.8 (0.0-1.0) mg/dL AST 18 (5-31) U/L ALT 20 (0-31) U/L Alkaline Phosphatase 151 H (39-117) U/L Albumin 3.8 (3.5-5.0) g/dL Urine 02/15/24 Range/Units 15:46 Urine Color Yellow Urine Appearance Clear Urine pH 7.0 (5.0-9.0) Ur Specific [place] >= 1.030 H (1.005-1.025) Urine Protein Negative (Neg-Trace) mg/dL Urine Glucose (UA) Negative (Negative) mg/dL All other labs normal. Imaging Abdomen CT scan report/results: report reviewed and image reviewed Additional studies: [address] [address] [address] Scan Report Signed Patient: Ellie Perry MR#: [id number] : 1960 Acct:[id number] Age/Sex: 63 / F ADM Date: 02/15/24 Loc: HO.ED Attending Dr: Ordering Physician: Cassandra Nunez MD Date of Service: 02/15/24 Procedure(s): CT chest wo IV con Accession Number(s): [id number] cc: Cassandra Nunez MD; Physician,None ~ EXAMINATION: CT CHEST, ABDOMEN WITHOUT CONTRAST. CLINICAL INFORMATION: severe left sided pain. COMPARISON: Abdominal and pelvic CT scan from approximately 30 minutes earlier today TECHNIQUE: Multidetector volumetric imaging was performed from the thoracic inlet through the pelvic brim without intravenous contrast. Oral contrast was given just prior to scanning. Sagittal and coronal reformatted images were obtained on the technologist workstation. This CT examination was performed using dose optimization techniques as appropriate, variously including the following: *Automated exposure control *Adjustment of mA and/or kV according to patient size (this includes techniques or standardized protocols for targeted exams where dose is matched to indication/reason for exam; i.e. extremities or head) *Use of iterative reconstruction technique DLP: 543 mGy-cm FINDINGS: CHEST: Lungs: There is persistent dense consolidation in the dependent left lower lobe and milder more likely atelectatic changes at the contralateral right base. Central airways are grossly unremarkable. No significant effusion or pneumothorax. Mediastinum: No bulky adenopathy. Moderate-sized hiatal hernia is again noted. Patient was given oral contrast just prior to scanning in the oral contrast is seen extending into the duodenum. No obstructive changes from the hiatal hernia. Coronary Artery Calcification: Absent Pericardium/Pleura: No significant effusion. No pleural mass or thickening. Chest Wall/Axilla: Unremarkable. ABDOMEN/PELVIS: Peritoneal Space:No significant free air or free fluid identified. Liver, Gallbladder, Biliary Tree: The non contrast liver is normal in size, shape, and attenuation. No focal hepatic lesion or biliary ductal dilatation is visualized on this noncontrast study. The gallbladder evidenced dental fundal fold but otherwise is unremarkable with no evidence of radiopaque gallstones, gallbladder wall thickening, or obvious pericholecystic inflammatory changes. Pancreas: Unremarkable. Spleen: Unremarkable. Adrenal Glands: Unremarkable. Kidneys and Ureters: The kidneys are normal in size, shape, and attenuation. Contrast is seen within both collecting systems. No hydronephrosis, hydroureter, or perinephric stranding. No calculi. Gastrointestinal Tract: Again a moderate-sized hiatal hernia seen. There does no obstructive changes seen with oral contrast given passing through this area into the visualized duodenum. No obstructive changes to the small bowel. Colon is decompressed. Incidental retrocecal appendix of no clinical significance. Abdominal Wall: No significant hernia is appreciated. Lymphovascular Structures: Minimal vascular calcification within the aorta. No bulky adenopathy CT/CT chest wo IV con IMPRESSION: 1. Persistent dense consolidation in the dependent left lower lobe suggesting aspiration or infectious etiology. 2. Moderate-sized hiatal hernia again noted. No obstructive changes to the bowel. No acute process seen within the abdomen. Assessment and Plan (1) Large hiatal hernia: Status: Acute Plan 63-year-old female with hiatal hernia large amount of stomach in the chest cavity and may be the cause of her aspiration pneumonia. Plan to encourage drinking in staying upright IV antibiotics to cover her pneumonia in treatment but will need repair of this hiatal hernia. Dr. Angelo our thoracic surgeon will be responsible for seeing her tomorrow and discussing the surgical options with her. She understands and agrees with the above plan. Right now cardiac tissue does not reveal any obstruction or any other the 6th ischemia and so were quite fine to wait and get the pneumonia treated before carrying out any procedure on the stomach. Patient and her understand and agree with the above plan Procedures Date of Service Date of Service: 02/16/24
[2024-02-16 15:21] VITALS: BP 123/66; PULSE 81; RESP 18; TEMP 36.5; O2SAT 94
[2024-02-16 18:49] LABS: Anion Gap 15 (12-20); Blood Urea Nitrogen 12 mg/dL (9-16); Calcium 7.8 mg/dL (8.4-10.2); Carbon Dioxide 18 mmol/L (22-29); Chloride 112 mmol/L (96-108); Creatinine Clr Calc Pharmacy 93.8; Estimated Glomerular Filt Rate > 60; Glucose Random 71 mg/dL (60-115); Potassium 3.6 mmol/L (3.3-5.1); Sodium 141 mmol/L (135-145)
[2024-02-16 19:41] VITALS: BP 150/85; PULSE 89; RESP 18; TEMP 36.8; O2SAT 96
[2024-02-16] MEDS: Enoxaparin Sodium 40 MG/0.4 ML SYRINGE SUBCUT (20:38)
[2024-02-17] MEDS: 0.9 % Sodium Chloride 1,000 ML 100 ML IVCONT ×2 (00:17→09:12)
[2024-02-17] MEDS: Ampicillin Sodium/Sulbactam Na 3 GM in 0.9 % Sodium Chloride 100 ML IV ×4 (03:40→21:19)
[2024-02-17 03:44] VITALS: RESP 20
[2024-02-17] MEDS: Morphine Sulfate 2 MG/ML CARTRIDGE IVPUSH ×5 (03:44→21:20)
[2024-02-17 03:49] VITALS: BP 127/62; PULSE 78; RESP 20; TEMP 36.6; O2SAT 94
[2024-02-17 04:15] VITALS: RESP 20
[2024-02-17] MEDS: Omeprazole 40 MG CAPSULE.DR PO (05:40)
[2024-02-17 08:00] VITALS: BP 134/73; PULSE 71; RESP 18; TEMP 36.3; O2SAT 95
[2024-02-17] MEDS: guaiFENesin LA 600 MG TAB.ER.12H PO ×2 (09:05→21:18)
[2024-02-17] MEDS: Pseudoephedrine HCL 30 MG TABLET 60 MG PO ×2 (09:05→14:50)
[2024-02-17] MEDS: 0.9 % Sodium Chloride Flush 3 ML SYRINGE IVFLUSH ×2 (09:06→21:19)
--- NOTE | 2024-02-17 10:26 | P.PNGS_ITS ---
Subjective Subjective Date of Service: 02/17/24 Interval history: Breathing is ok but c/o back pain. Denies monserrat vomiting. Wants to eat. Physical Exam 2 Vital Signs: Vital Signs: Last Vital Signs Temp 97.3 F 02/17/24 08:00 Pulse 71 02/17/24 08:00 Resp 18 02/17/24 08:00 BP 134/73 02/17/24 08:00 Pulse Ox 95 02/17/24 08:00 O2 Del Method Room Air 02/17/24 08:00 BMI result Body Mass Index 26.6 Const: General: comfortable, no acute distress and alert O rientation/consciousness: patient oriented x3 Resp: Effort & Inspection: normal respiratory effort, able to speak in complete sentences and no respiratory distress GI: Inspection: No distended and No scar Palpation (GI): Soft to palpation, nontender, no guarding and not rigid Skin: General skin exam: no rashes or lesions noted Neuro: General: patient oriented x3 and moves all extremities Objective Data Active Medications Acetaminophen (Acetaminophen 325 Mg Tablet) 650 mg PO Q6H PRN PRN Reason: Pain, Mild (Pain Scale 1-3) Last Admin: 02/16/24 05:38 Dose: 650 mg Documented By: MEGHAN Albuterol Sulfate (Albuterol Sulfate 90 Mcg 8 Gm Inhaler) 2 puff INHALE Q6H PRN PRN Reason: Shortness Of Breath Or Wheezing Enoxaparin Sodium (Enoxaparin Sodium 40 Mg/0.4 Ml Syringe) 40 mg SUBCUT Q24H [facility] [place] Last Admin: 02/16/24 20:38 Dose: 40 mg Documented By: WILLIAM Guaifenesin (Guaifenesin La 600 Mg Tab.Er.12h) 600 mg PO BID [facility] [place] Last Admin: 02/17/24 09:05 Dose: 600 mg Documented By: PRISCILA Sodium Chloride (Ns) 1,000 mls @ 100 mls/hr IVCONT .Q10H [facility] Last Admin: 02/17/24 09:12 Dose: 100 mls/hr Documented By: PRISCILA Ampicillin Sodium/Sulbactam (Sodium 3 gm/ Sodium Chloride) 100 mls @ 200 mls/hr IV Q6H [facility] Last Infusion: 02/17/24 09:43 Dose: Infused Documented By: PRISCILA Morphine Sulfate (Morphine Sulfate 2 Mg/Ml Cartridge) 2 mg IVPUSH Q4H PRN; Protocol PRN Reason: Pain, Severe (Pain Scale 7-10) Last Admin: 02/17/24 09:05 Dose: 2 mg Documented By: PRISCILA Omeprazole (Omeprazole 40 Mg Capsule.Dr) 40 mg PO DAILY@0630 [facility] [place] Last Admin: 02/17/24 05:40 Dose: 40 mg Documented By: ALDO Ondansetron HCl (Ondansetron Hcl 4 Mg/2 Ml Vial) 4 mg IVPUSH Q8H PRN PRN Reason: Nausea and Vomiting Oxycodone HCl (Oxycodone Hcl Immed Release 5 Mg Tablet) 5 mg PO Q4H PRN PRN Reason: Pain, Moderate(Pain Scale 4-6) Prednisone (Prednisone 10 Mg Tablet) 50 mg PO DAILY@1200 [facility] [place] Stop: 02/17/24 12:01 Last Admin: 02/16/24 12:39 Dose: 50 mg Documented By: SAMARA Pseudoephedrine HCl (Pseudoephedrine Hcl 30 Mg Tablet) 60 mg PO BID@0800,1500 [facility] [place] Stop: 02/17/24 15:01 Last Admin: 02/17/24 09:05 Dose: 60 mg Documented By: PRISCILA Senna (Sennosides 8.6 Mg Tablet) 17.2 mg PO BEDTIME PRN PRN Reason: Constipation Sodium Chloride (0.9 % Sodium Chloride Flush 3 Ml Syringe) 3 ml IVFLUSH QSHIFT [facility] [place] Last Admin: 02/17/24 09:06 Dose: 3 ml Documented By: PRISCILA Labs 02/16/24 05:49 02/16/24 05:49 Labs: Laboratory Results - last 24 hr 02/16/24 05:49 Anion Gap 15 Estim Creat Clear Calc 93.8 Estimated GFR > 60 Random Glucose 71 Calcium 7.8 L D Microbiology Microbiology Results: Microbiology 02/15/24 15:46 Blood Culture - Preliminary Blood - Venous No growth after 24 hours. 02/15/24 15:46 Blood Culture - Preliminary Blood - Venous No growth after 24 hours. Procedures Date of Service Date of Service: 02/17/24 Progress Note: A&P Assessment and plan (1) Large hiatal hernia: Status: Acute Plan Large hiatal hernia with possible aspiration PNA vs compression atelectasis. Improved, sepsis resolved. Recommended repair of the hiatal hernia once PNA resolves. Will add tenatively to schedule for if medically cleared for laparotomy, reduction and repair of hiatal hernia, gastropexy with G tube. Patient comfortable with plan. Cont IV abx, incentive spirometer. Time Spent With Patient Time: Total time managing care of this patient today ____ minutes. Quality Stroke Does the patient have a stroke diagnosis?: No VTE Prior VTE?: No VTE Risk Level:: Medical - moderate - high VTE Device Contraindication: Treatment Not Indicated VTE Drug Contraindication: N/A - Med Ordered
[2024-02-17] MEDS: predniSONE 10 MG TABLET 50 MG PO (11:46)
--- NOTE | 2024-02-17 12:19 | P.PNIM_ITS ---
Subjective Subjective Date of Service: 02/17/24 Review of Systems Follow-up pneumonia Cough is better Was having back pain and seen by thoracic surgery for plan for surgical repair of hiatal hernia Physical Exam 2 Vital Signs: Vital Signs: Last Vital Signs Temp 97.3 F 02/17/24 08:00 Pulse 71 02/17/24 08:00 Resp 18 02/17/24 08:00 BP 134/73 02/17/24 08:00 Pulse Ox 95 02/17/24 08:00 O2 Del Method Room Air 02/17/24 08:00 BMI result Body Mass Index 26.6 Appearing in no acute distress lung sounds are clear to auscultation heart regular rate rhythm, clear S1, S2 positive bowel sounds, abdomen is soft, nontender neuro patient is alert x3, no focal deficits Objective Data Active Medications Acetaminophen (Acetaminophen 325 Mg Tablet) 650 mg PO Q6H PRN PRN Reason: Pain, Mild (Pain Scale 1-3) Last Admin: 02/16/24 05:38 Dose: 650 mg Documented By: MEGHNA Albuterol Sulfate (Albuterol Sulfate 90 Mcg 8 Gm Inhaler) 2 puff INHALE Q6H PRN PRN Reason: Shortness Of Breath Or Wheezing Enoxaparin Sodium (Enoxaparin Sodium 40 Mg/0.4 Ml Syringe) 40 mg SUBCUT Q24H [facility] Last Admin: 02/16/24 20:38 Dose: 40 mg Documented By: WILLIAM Guaifenesin (Guaifenesin La 600 Mg Tab.Er.12h) 600 mg PO BID [facility] Last Admin: 02/17/24 09:05 Dose: 600 mg Documented By: PRISCILA Sodium Chloride (Ns) 1,000 mls @ 100 mls/hr IVCONT .Q10H [facility] Last Admin: 02/17/24 09:12 Dose: 100 mls/hr Documented By: PRISCILA Ampicillin Sodium/Sulbactam (Sodium 3 gm/ Sodium Chloride) 100 mls @ 200 mls/hr IV Q6H [facility] Last Infusion: 02/17/24 09:43 Dose: Infused Documented By: PRISCILA Morphine Sulfate (Morphine Sulfate 2 Mg/Ml Cartridge) 2 mg IVPUSH Q4H PRN; Protocol PRN Reason: Pain, Severe (Pain Scale 7-10) Last Admin: 02/17/24 09:05 Dose: 2 mg Documented By: PRISCILA Omeprazole (Omeprazole 40 Mg Fritz.) 40 mg PO DAILY@0630 [facility] Last Admin: 02/17/24 05:40 Dose: 40 mg Documented By: ALDO Ondansetron HCl (Ondansetron Hcl 4 Mg/2 Ml Vial) 4 mg IVPUSH Q8H PRN PRN Reason: Nausea and Vomiting Oxycodone HCl (Oxycodone Hcl Immed Release 5 Mg Tablet) 5 mg PO Q4H PRN PRN Reason: Pain, Moderate(Pain Scale 4-6) Pseudoephedrine HCl (Pseudoephedrine Hcl 30 Mg Tablet) 60 mg PO BID@0800,1500 [facility] Stop: 02/17/24 15:01 Last Admin: 02/17/24 09:05 Dose: 60 mg Documented By: PRISCILA Senna (Sennosides 8.6 Mg Tablet) 17.2 mg PO BEDTIME PRN PRN Reason: Constipation Sodium Chloride (0.9 % Sodium Chloride Flush 3 Ml Syringe) 3 ml IVFLUSH QSHIFT [facility] Last Admin: 02/17/24 09:06 Dose: 3 ml Documented By: PRISCILA Labs 02/16/24 05:49 02/16/24 05:49 Labs: Laboratory Results - last 24 hr 02/16/24 05:49 Anion Gap 15 Estim Creat Clear Calc 93.8 Estimated GFR > 60 Random Glucose 71 Calcium 7.8 L D Microbiology Microbiology Results: Microbiology 02/15/24 15:46 Blood Culture - Preliminary Blood - Venous No growth after 24 hours. 02/15/24 15:46 Blood Culture - Preliminary Blood - Venous No growth after 24 hours. Assessment and Plan (1) Large hiatal hernia: Status: Acute (2) Pneumonia: Status: Acute Plan 63-year-old female without any significant past medical history admitted for LLL pneumonia with severe sepsis. CAP vs aspiration with severe sepsis sepsis resolved no hypoxia chest CT shows LLL pneumonia, likely aspiration with large hiatal hernia continue IV unasyn (initiated 02/14) supplemental oxygen as needed to titrate to sat >92% Large hiatal hernia general surgery consult> plan for repair on continue PPI ok to advance diet Low blood pressures continue IVF monitor bp closely DVT prophylaxis with lovenox Attending Dr. Melendez full code continue hospital stay for management of LLL pneumonia with severe sepsis requiring ov abx, close monitoring, and expert consultation Quality Stroke Does the patient have a stroke diagnosis?: No VTE Prior VTE?: No VTE Risk Level:: Medical - moderate - high VTE Device Contraindication: Treatment Not Indicated VTE Drug Contraindication: N/A - Med Ordered
--- NOTE | 2024-02-17 13:09 | MHC.SLORD ---
Speech Language Pathology Order Status: Pt is currently on Clear Liquid Diet, per CHART WRITER, order for speech no longer needed and to be cx'ed. Please re-refer if PROFESSOR OF VOICE can be of further assistance.
--- NOTE | 2024-02-17 14:52 | MHC.CM.PN ---
EMR reviewed and per MD rounds, pt is not medically cleared for D/C due to management of severe sepsis, and need for general surgeon consult.
[2024-02-17 15:14] VITALS: BP 134/65; PULSE 78; RESP 20; TEMP 36.9; O2SAT 95
[2024-02-17 20:00] VITALS: BP 127/63; PULSE 81; RESP 19; TEMP 36.4; O2SAT 93
[2024-02-17] MEDS: Enoxaparin Sodium 40 MG/0.4 ML SYRINGE SUBCUT (21:19)
[2024-02-18] MEDS: Ampicillin Sodium/Sulbactam Na 3 GM in 0.9 % Sodium Chloride 100 ML IV ×4 (02:46→19:59)
[2024-02-18 03:47] VITALS: BP 133/72; PULSE 66; RESP 20; TEMP 36.3; O2SAT 96
[2024-02-18] MEDS: Morphine Sulfate 2 MG/ML CARTRIDGE IVPUSH ×2 (05:25→19:59)
[2024-02-18] MEDS: Omeprazole 40 MG CAPSULE.DR PO (05:25)
[2024-02-18 06:24] VITALS: RESP 18
[2024-02-18 07:13] VITALS: BP 133/76; PULSE 71; RESP 20; TEMP 37.4; O2SAT 96
[2024-02-18] MEDS: guaiFENesin LA 600 MG TAB.ER.12H PO ×2 (08:05→19:37)
[2024-02-18] MEDS: 0.9 % Sodium Chloride Flush 3 ML SYRINGE IVFLUSH ×2 (08:06→15:24)
[2024-02-18 08:43] LABS: Hematocrit 35.2 % (37.0-47.0); Hemoglobin 11.4 g/dl (12.0-16.0); Mean Corpuscular HGB Conc 32.4 g/dl (31.0-35.0); Mean Corpuscular Hemoglobin 30.9 pg (27.0-33.0); Mean Corpuscular Volume 95.4 fL (80.0-98.0); Mean Platelet Volume 11.2 fL (9.4-12.3); Platelet Count 274 X10*3/uL (160-400); Red Blood Count 3.69 X10*6/uL (4.20-5.50); Red Cell Distribution Width 11.9 % (11.0-16.0); White Blood Count 9.4 X10*3/uL (4.8-10.8)
[2024-02-18 09:01] LABS: Anion Gap 9 (12-20); Blood Urea Nitrogen 4 mg/dL (9-16); Calcium 8.3 mg/dL (8.4-10.2); Carbon Dioxide 26 mmol/L (22-29); Chloride 112 mmol/L (96-108); Creatinine Clr Calc Pharmacy 93.8; Estimated Glomerular Filt Rate > 60; Glucose Random 84 mg/dL (60-115); Sodium 144 mmol/L (135-145)
--- NOTE | 2024-02-18 09:19 | HO.PM.IMPN ---
Subjective Subjective Date of Service: 02/18/24 Review of Systems Follow-up pneumonia Cough is better Was having back pain and seen by thoracic surgery for plan for surgical repair of hiatal hernia Physical Exam Vital Signs: Vital Signs: Last Vital Signs Temp 99.3 F 02/18/24 07:13 Pulse 71 02/18/24 07:13 Resp 20 02/18/24 07:13 BP 133/76 02/18/24 07:13 Pulse Ox 96 02/18/24 07:13 O2 Del Method Room Air 02/18/24 07:13 BMI result Body Mass Index 26.6 Appearing in no acute distress lung sounds are clear to auscultation heart regular rate rhythm, clear S1, S2 positive bowel sounds, abdomen is soft, nontender neuro patient is alert x3, no focal deficits Objective Data Active Medications Acetaminophen (Acetaminophen 325 Mg Tablet) 650 mg PO Q6H PRN PRN Reason: Pain, Mild (Pain Scale 1-3) Last Admin: 02/16/24 05:38 Dose: 650 mg Documented By: MEGHAN Albuterol Sulfate (Albuterol Sulfate 90 Mcg 8 Gm Inhaler) 2 puff INHALE Q6H PRN PRN Reason: Shortness Of Breath Or Wheezing Enoxaparin Sodium (Enoxaparin Sodium 40 Mg/0.4 Ml Syringe) 40 mg SUBCUT Q24H [facility] Last Admin: 02/17/24 21:19 Dose: 40 mg Documented By: ALDO Guaifenesin (Guaifenesin La 600 Mg Tab.Er.12h) 600 mg PO BID [facility] Last Admin: 02/18/24 08:05 Dose: 600 mg Documented By: CARL Ampicillin Sodium/Sulbactam (Sodium 3 gm/ Sodium Chloride) 100 mls @ 200 mls/hr IV Q6H [facility] Last Infusion: 02/18/24 08:55 Dose: Infused Documented By: CARL Morphine Sulfate (Morphine Sulfate 2 Mg/Ml Cartridge) 2 mg IVPUSH Q4H PRN; Protocol PRN Reason: Pain, Severe (Pain Scale 7-10) Last Admin: 02/18/24 05:25 Dose: 2 mg Documented By: ALDO Omeprazole (Omeprazole 40 Mg Capsule.) 40 mg PO DAILY@0630 [facility] Last Admin: 02/18/24 05:25 Dose: 40 mg Documented By: ALDO Ondansetron HCl (Ondansetron Hcl 4 Mg/2 Ml Vial) 4 mg IVPUSH Q8H PRN PRN Reason: Nausea and Vomiting Oxycodone HCl (Oxycodone Hcl Immed Release 5 Mg Tablet) 5 mg PO Q4H PRN PRN Reason: Pain, Moderate(Pain Scale 4-6) Senna (Sennosides 8.6 Mg Tablet) 17.2 mg PO BEDTIME PRN PRN Reason: Constipation Sodium Chloride (0.9 % Sodium Chloride Flush 3 Ml Syringe) 3 ml IVFLUSH QSHIFT [facility] Last Admin: 02/18/24 08:06 Dose: 3 ml Documented By: CARL Labs 02/18/24 08:27 02/18/24 08:27 Labs: Laboratory Results - last 24 hr 02/18/24 08:27 MCV 95.4 MCH 30.9 MCHC 32.4 RDW 11.9 Plt Count 274 MPV 11.2 Absolute Nucleated RBC 0.000 Nucleated RBC % (auto) 0.0 Anion Gap 9 L Estim Creat Clear Calc 93.8 Estimated GFR > 60 Random Glucose 84 Calcium 8.3 L D Microbiology Microbiology Results: Microbiology 02/15/24 15:46 Blood Culture - Preliminary Blood - Venous No growth after 48 hours. 02/15/24 15:46 Blood Culture - Preliminary Blood - Venous No growth after 48 hours. Assessment and Plan (1) Large hiatal hernia: Status: Acute (2) Pneumonia: Status: Acute Plan 63-year-old female without any significant past medical history admitted for LLL pneumonia with severe sepsis. CAP vs aspiration with severe sepsis sepsis resolved no hypoxia chest CT shows LLL pneumonia, likely aspiration with large hiatal hernia continue IV unasyn (initiated 02/14) supplemental oxygen as needed to titrate to sat >92% Large hiatal hernia general surgery consult> plan for repair on continue PPI ok to advance diet Low blood pressures. Resolved monitor bp closely DVT prophylaxis with lovenox Attending Dr. Melendez full code continue hospital stay for management of LLL pneumonia with severe sepsis requiring ov abx, close monitoring, and expert consultation Quality Stroke Does the patient have a stroke diagnosis?: No VTE Prior VTE?: No VTE Risk Level:: Medical - moderate - high VTE Device Contraindication: Treatment Not Indicated VTE Drug Contraindication: N/A - Med Ordered
[2024-02-18] MEDS: Potassium Chloride ER 20 MEQ TAB.ER.PRT 40 MEQ PO (09:31)
[2024-02-18 10:56] VITALS: BP 124/66; PULSE 73; RESP 18; TEMP 36.2; O2SAT 97
[2024-02-18 15:02] VITALS: BP 110/57; PULSE 75; RESP 20; TEMP 36.4; O2SAT 97
[2024-02-18 19:20] VITALS: BP 122/66; PULSE 74; RESP 20; TEMP 36.9; O2SAT 94
[2024-02-18] MEDS: Enoxaparin Sodium 40 MG/0.4 ML SYRINGE SUBCUT (19:38)
[2024-02-19] MEDS: Ampicillin Sodium/Sulbactam Na 3 GM in 0.9 % Sodium Chloride 100 ML IV ×4 (02:41→21:24)
[2024-02-19] MEDS: 0.9 % Sodium Chloride Flush 3 ML SYRINGE IVFLUSH ×4 (02:42→21:24)
[2024-02-19 03:17] VITALS: BP 151/89; PULSE 68; RESP 20; TEMP 36.1; O2SAT 96
[2024-02-19] MEDS: Omeprazole 40 MG CAPSULE.DR PO (06:00)
[2024-02-19 07:29] LABS: Anion Gap 10 (12-20); Blood Urea Nitrogen 5 mg/dL (9-16); Calcium 8.2 mg/dL (8.4-10.2); Carbon Dioxide 25 mmol/L (22-29); Chloride 112 mmol/L (96-108); Creatinine Clr Calc Pharmacy 93.8; Estimated Glomerular Filt Rate > 60; Glucose Random 86 mg/dL (60-115); Potassium 3.6 mmol/L (3.3-5.1); Sodium 143 mmol/L (135-145)
[2024-02-19 07:37] VITALS: BP 140/77; PULSE 69; RESP 18; TEMP 36.8; O2SAT 96
--- NOTE | 2024-02-19 07:46 | P.PNIM_ITS ---
Subjective Subjective Date of Service: 02/19/24 Review of Systems Follow-up pneumonia Cough is better Was having back pain and seen by thoracic surgery for plan for surgical repair of hiatal hernia Physical Exam 2 Vital Signs: Vital Signs: Last Vital Signs Temp 98.2 F 02/19/24 07:37 Pulse 69 02/19/24 07:37 Resp 18 02/19/24 07:37 BP 140/77 H 02/19/24 07:37 Pulse Ox 96 02/19/24 07:37 O2 Del Method Room Air 02/19/24 07:37 BMI result Body Mass Index 26.6 Appearing in no acute distress lung sounds are clear to auscultation heart regular rate rhythm, clear S1, S2 positive bowel sounds, abdomen is soft, nontender neuro patient is alert x3, no focal deficits Objective Data Active Medications Acetaminophen (Acetaminophen 325 Mg Tablet) 650 mg PO Q6H PRN PRN Reason: Pain, Mild (Pain Scale 1-3) Last Admin: 02/16/24 05:38 Dose: 650 mg Documented By: MEGHAN Albuterol Sulfate (Albuterol Sulfate 90 Mcg 8 Gm Inhaler) 2 puff INHALE Q6H PRN PRN Reason: Shortness Of Breath Or Wheezing Enoxaparin Sodium (Enoxaparin Sodium 40 Mg/0.4 Ml Syringe) 40 mg SUBCUT Q24H [facility] Last Admin: 02/18/24 19:38 Dose: 40 mg Documented By: TERRELL Guaifenesin (Guaifenesin La 600 Mg Tab.Er.12h) 600 mg PO BID [facility] Last Admin: 02/18/24 19:37 Dose: 600 mg Documented By: TERRELL Ampicillin Sodium/Sulbactam (Sodium 3 gm/ Sodium Chloride) 100 mls @ 200 mls/hr IV Q6H [facility] Last Infusion: 02/19/24 03:59 Dose: Infused Documented By: MOOK Morphine Sulfate (Morphine Sulfate 2 Mg/Ml Cartridge) 2 mg IVPUSH Q4H PRN; Protocol PRN Reason: Pain, Severe (Pain Scale 7-10) Last Admin: 02/18/24 19:59 Dose: 2 mg Documented By: TERRELL Omeprazole (Omeprazole 40 Mg Capsule.) 40 mg PO DAILY@0630 [facility] Last Admin: 02/19/24 06:00 Dose: 40 mg Documented By: MOOK Ondansetron HCl (Ondansetron Hcl 4 Mg/2 Ml Vial) 4 mg IVPUSH Q8H PRN PRN Reason: Nausea and Vomiting Oxycodone HCl (Oxycodone Hcl Immed Release 5 Mg Tablet) 5 mg PO Q4H PRN PRN Reason: Pain, Moderate(Pain Scale 4-6) Potassium Chloride (Potassium Chloride Er 20 Meq Tab.Er.Prt) 40 meq PO DAILY [facility] Last Admin: 02/18/24 09:31 Dose: 40 meq Documented By: GIPRICILA Senna (Sennosides 8.6 Mg Tablet) 17.2 mg PO BEDTIME PRN PRN Reason: Constipation Sodium Chloride (0.9 % Sodium Chloride Flush 3 Ml Syringe) 3 ml IVFLUSH QSHIFT [facility] Last Admin: 02/19/24 02:42 Dose: 3 ml Documented By: MOOK Labs 02/18/24 08:27 02/19/24 06:17 Labs: Laboratory Results - last 24 hr 02/18/24 02/19/24 08:27 06:17 MCV 95.4 MCH 30.9 MCHC 32.4 RDW 11.9 Plt Count 274 MPV 11.2 Absolute Nucleated RBC 0.000 Nucleated RBC % (auto) 0.0 Hold Purple Top SEE NOTE Anion Gap 9 L 10 L Estim Creat Clear Calc 93.8 93.8 Estimated GFR > 60 > 60 Random Glucose 84 86 Calcium 8.3 L D 8.2 L Assessment and Plan (1) Large hiatal hernia: Status: Acute (2) Pneumonia: Status: Acute Plan 63-year-old female without any significant past medical history admitted for LLL pneumonia with severe sepsis. CAP vs aspiration with severe sepsis sepsis resolved no hypoxia chest CT shows LLL pneumonia, likely aspiration with large hiatal hernia continue IV unasyn (initiated 02/14) supplemental oxygen as needed to titrate to sat >92% Large hiatal hernia continue PPI general surgery consult> plan for repair on NPO after midnight clear diet for today Low blood pressures. Resolved monitor bp closely Hypokalemia resolved with repletion DVT prophylaxis with lovenox Attending Dr. Melendez full code continue hospital stay for management of LLL pneumonia with severe sepsis requiring ov abx, close monitoring, and expert consultation Quality Stroke Does the patient have a stroke diagnosis?: No VTE Prior VTE?: No VTE Risk Level:: Medical - moderate - high VTE Device Contraindication: Treatment Not Indicated VTE Drug Contraindication: N/A - Med Ordered
[2024-02-19] MEDS: guaiFENesin LA 600 MG TAB.ER.12H PO ×2 (07:57→21:24)
--- NOTE | 2024-02-19 10:06 | PM.PNGS ---
Subjective Subjective Date of Service: 02/19/24 <Diandra Redding PA-C - Last Filed: 02/19/24 10:16> 02/19/24 <Luis Angelo MD - Last Filed: 02/19/24 12:35> Interval history: Her back pain has significantly improved. Denies abd pain. Denies shortness of breath. Feels ready for the surgery tomorrow. <Diandra Redding PA-C - Last Filed: 02/19/24 10:16> Physical Exam Vital Signs: Vital Signs: Last Vital Signs Temp 98.2 F 02/19/24 07:37 Pulse 69 02/19/24 07:37 Resp 18 02/19/24 07:37 BP 140/77 H 02/19/24 07:37 Pulse Ox 96 02/19/24 07:37 O2 Del Method Room Air 02/19/24 07:37 BMI result Body Mass Index 26.6 <Diandra Redding PA-C - Last Filed: 02/19/24 10:16> Const: General: comfortable, no acute distress and alert <Diandra Redding PA-C - Last Filed: 02/19/24 10:16> Orientation/consciousness: patient oriented x3 <MARIA L Melgar Last Filed: 02/19/24 10:16> Resp: Effort & Inspection: normal respiratory effort, able to speak in complete sentences and no respiratory distress <Diandra Redding PA-C - Last Filed: 02/19/24 10:16> GI: Inspection: No distended <MARIA L Melgar Last Filed: 02/19/24 10:16> Palpation (GI): Soft to palpation and nontender <Diandra Redding PA-C - Last Filed: 02/19/24 10:16> Skin: General skin exam: no rashes or lesions noted <MARIA L Melgar Last Filed: 02/19/24 10:16> Neuro: General: patient oriented x3 <MARIA L Melgar Last Filed: 02/19/24 10:16> Objective Data Active Medications Acetaminophen (Acetaminophen 325 Mg Tablet) 650 mg PO Q6H PRN PRN Reason: Pain, Mild (Pain Scale 1-3) Last Admin: 02/16/24 05:38 Dose: 650 mg Documented By: MEGHAN Albuterol Sulfate (Albuterol Sulfate 90 Mcg 8 Gm Inhaler) 2 puff INHALE Q6H PRN PRN Reason: Shortness Of Breath Or Wheezing Enoxaparin Sodium (Enoxaparin Sodium 40 Mg/0.4 Ml Syringe) 40 mg SUBCUT Q24H [facility] Last Admin: 02/18/24 19:38 Dose: 40 mg Documented By: TERRELL Guaifenesin (Guaifenesin La 600 Mg Tab.Er.12h) 600 mg PO BID [facility] Last Admin: 02/19/24 07:57 Dose: 600 mg Documented By: CARL Ampicillin Sodium/Sulbactam (Sodium 3 gm/ Sodium Chloride) 100 mls @ 200 mls/hr IV Q6H [facility] Last Infusion: 02/19/24 09:54 Dose: Infused Documented By: CARL Morphine Sulfate (Morphine Sulfate 2 Mg/Ml Cartridge) 2 mg IVPUSH Q4H PRN; Protocol PRN Reason: Pain, Severe (Pain Scale 7-10) Last Admin: 02/18/24 19:59 Dose: 2 mg Documented By: TERRELL Omeprazole (Omeprazole 40 Mg Capsule.Dr) 40 mg PO DAILY@0630 [facility] Last Admin: 02/19/24 06:00 Dose: 40 mg Documented By: MOOK Ondansetron HCl (Ondansetron Hcl 4 Mg/2 Ml Vial) 4 mg IVPUSH Q8H PRN PRN Reason: Nausea and Vomiting Oxycodone HCl (Oxycodone Hcl Immed Release 5 Mg Tablet) 5 mg PO Q4H PRN PRN Reason: Pain, Moderate(Pain Scale 4-6) Senna (Sennosides 8.6 Mg Tablet) 17.2 mg PO BEDTIME PRN PRN Reason: Constipation Sodium Chloride (0.9 % Sodium Chloride Flush 3 Ml Syringe) 3 ml IVFLUSH QSHIFT [facility] Last Admin: 02/19/24 07:58 Dose: 3 ml Documented By: CARL <Diandra Redding PA-C - Last Filed: 02/19/24 10:16> Labs CBC & Chem 7: 04/02/24 08:27 02/19/24 06:17 <Diandra Redding PA-C - Last Filed: 02/19/24 10:16> Labs: Laboratory Results - last 24 hr 02/19/24 06:17 Hold Purple Top SEE NOTE Anion Gap 10 L Estim Creat Clear Calc 93.8 Estimated GFR > 60 Random Glucose 86 Calcium 8.2 L <Diandra Redding PA-C - Last Filed: 02/19/24 10:16> Procedures Date of Service Date of Service: 02/19/24 <Diandra Redding PA-C - Last Filed: 02/19/24 10:16> 02/19/24 <Luis Angelo MD - Last Filed: 02/19/24 12:35> Progress Note: A&P Assessment and plan (1) Paraesophageal hernia: Status: Acute <Diandra Redding PA-C - Last Filed: 02/19/24 10:16> Assessment and Plan: Doing well, stable. On room air, WBC normalized. Would like to proceed with laparotomy, reduction and repair of hiatal hernia, gastropexy with G tube. Risks, benefits, alternatives of laparotomy, repair of hiatal hernia and gastropexy were reviewed with the patient and include but not limited to bleeding, infection, numbness, pain, scarring, injury to surrounding structures like bowel, liver, hernia recurrence and the patient wishes to proceed. She is on the schedule for tomorrow. NPO at midnight. Patient and daughter comfortable with plan. <Diandra Redding PA-C - Last Filed: 02/19/24 10:16> Doing well, stable. On room air, WBC normalized. Would like to proceed with laparotomy, reduction and repair of hiatal hernia, gastropexy with G tube. Risks, benefits, alternatives of laparotomy, repair of hiatal hernia and gastropexy were reviewed with the patient and include but not limited to bleeding, infection, numbness, pain, scarring, injury to surrounding structures like bowel, liver, hernia recurrence and the patient wishes to proceed. She is on the schedule for tomorrow. NPO at midnight. Patient and daughter comfortable with plan. As noted <Luis Angelo MD - Last Filed: 02/19/24 12:35> Time Spent With Patient Time: Total time managing care of this patient today ____ minutes. <Diandra Redding PA-C - Last Filed: 02/19/24 10:16> Quality Stroke Does the patient have a stroke diagnosis?: No <Diandra Redding PA-C - Last Filed: 02/19/24 10:16> VTE Prior VTE?: No <Diandra Redding PA-C - Last Filed: 02/19/24 10:16> VTE Risk Level:: Medical - moderate - high <Diandra Redding PA-C - Last Filed: 02/19/24 10:16> VTE Device Contraindication: Treatment Not Indicated <Diandra Redding PA-C - Last Filed: 02/19/24 10:16> VTE Drug Contraindication: N/A - Med Ordered <Diandra Redding PA-C - Last Filed: 02/19/24 10:16>
[2024-02-19] MEDS: Acetaminophen 325 MG TABLET 650 MG PO (12:12)
--- NOTE | 2024-02-19 14:16 | MHC.CM.PN ---
EMR reviewed and per MD rounds, pt is not medically cleared for D/C due to management of sepsis and back pain, plan is for surgical repair of hiatal hernia tomorrow.
[2024-02-19 15:36] VITALS: BP 128/79; PULSE 67; RESP 20; TEMP 36.4; O2SAT 98
[2024-02-19 19:01] VITALS: BP 140/67; PULSE 71; RESP 16; TEMP 36.5; O2SAT 97
[2024-02-19] MEDS: Enoxaparin Sodium 40 MG/0.4 ML SYRINGE SUBCUT (21:23)
[2024-02-19] MEDS: Morphine Sulfate 2 MG/ML CARTRIDGE IVPUSH (21:26)
[2024-02-20] VITALS (11 sets, daily range): BP systolic 113–162; BP diastolic 62–88; PULSE 65–79; RESP 13–20; TEMP 35.6–36.9; O2SAT 93–97; BMI 26.6
[2024-02-20] MEDS: Ampicillin Sodium/Sulbactam Na 3 GM in 0.9 % Sodium Chloride 100 ML IV ×3 (02:51→20:16)
[2024-02-20] MEDS: 0.9 % Sodium Chloride Flush 3 ML SYRINGE IVFLUSH ×2 (08:58→17:50)
[2024-02-20] MEDS: guaiFENesin LA 600 MG TAB.ER.12H PO (08:58)
--- NOTE | 2024-02-20 12:43 | P.PNIM_ITS ---
Subjective Subjective Date of Service: 02/20/24 Interval History: Seen and examined this morning Follow-up for pneumonia, large hiatal hernia Denies shortness of breath Plan for surgery today Review of Systems Review of Systems: Yes all other systems are reviewed and are negative Constitutional Constitutional: Denies chills and Denies fever(s) Cardiovascular Cardiovascular: Denies chest pain, Denies palpitations and Denies dyspnea Respiratory Respiratory: Denies dyspnea Endocrine Endocrine: Denies palpitations Physical Exam 2 Vital Signs: Vital Signs: Last Vital Signs Temp 98.5 F 02/20/24 07:29 Pulse 72 02/20/24 07:29 Resp 18 02/20/24 07:29 BP 140/64 H 02/20/24 07:29 Pulse Ox 95 02/20/24 07:29 O2 Del Method Room Air 02/20/24 07:29 BMI result Body Mass Index 26.6 Const: General: cooperative, comfortable, no acute distress, alert and awake Nutritional Appearance: average body habitus Orientation/consciousness: p atient oriented x3 Resp: Effort & Inspection: normal respiratory effort, able to speak in complete sentences, no respiratory distress and no use of accessory muscles A uscultation: clear to auscultation bilaterally Cardio: Rate: regular rate GI: Inspection: No distended Palpation (GI): Soft to palpation and nontender Neuro: General: patient oriented x3, moves all extremities and CN's II-XI intact bilaterally Extrem: General: Yes no pedal edema Objective Data Active Medications Acetaminophen (Acetaminophen 325 Mg Tablet) 650 mg PO Q6H PRN PRN Reason: Pain, Mild (Pain Scale 1-3) Last Admin: 02/19/24 12:12 Dose: 650 mg Documented By: CARL Albuterol Sulfate (Albuterol Sulfate 90 Mcg 8 Gm Inhaler) 2 puff INHALE Q6H PRN PRN Reason: Shortness Of Breath Or Wheezing Enoxaparin Sodium (Enoxaparin Sodium 40 Mg/0.4 Ml Syringe) 40 mg SUBCUT Q24H [facility] Last Admin: 02/19/24 21:23 Dose: 40 mg Documented By: MOOK Guaifenesin (Guaifenesin La 600 Mg Tab.Er.12h) 600 mg PO BID [facility] Last Admin: 02/20/24 08:58 Dose: 600 mg Documented By: CECY Ampicillin Sodium/Sulbactam (Sodium 3 gm/ Sodium Chloride) 100 mls @ 200 mls/hr IV Q6H [facility] Last Infusion: 02/20/24 09:30 Dose: Infused Documented By: CECY Morphine Sulfate (Morphine Sulfate 2 Mg/Ml Cartridge) 2 mg IVPUSH Q4H PRN; Protocol PRN Reason: Pain, Severe (Pain Scale 7-10) Last Admin: 02/19/24 21:26 Dose: 2 mg Documented By: MOOK Omeprazole (Omeprazole 40 Mg Capsule.) 40 mg PO DAILY@06 [facility] Last Admin: 02/20/24 06:20 Dose: Not Given Documented By: MOOK Non-Admin Reason: NPO Ondansetron HCl (Ondansetron Hcl 4 Mg/2 Ml Vial) 4 mg IVPUSH Q8H PRN PRN Reason: Nausea and Vomiting Oxycodone HCl (Oxycodone Hcl Immed Release 5 Mg Tablet) 5 mg PO Q4H PRN PRN Reason: Pain, Moderate(Pain Scale 4-6) Senna (Sennosides 8.6 Mg Tablet) 17.2 mg PO BEDTIME PRN PRN Reason: Constipation Sodium Chloride (0.9 % Sodium Chloride Flush 3 Ml Syringe) 3 ml IVFLUSH QSHIFT [facility] Last Admin: 02/20/24 08:58 Dose: 3 ml Documented By: CECY Labs 02/18/24 08:27 02/19/24 06:17 Assessment and Plan (1) Paraesophageal hernia: Status: Acute (2) Pneumonia: Status: Acute Plan This is a 63-year-old female without any significant past medical history admitted for LLL pneumonia with severe sepsis found to have large paraesophageal hernia CAP vs aspiration with severe sepsis sepsis resolved no hypoxia chest CT shows LLL pneumonia, likely aspiration with large hiatal hernia continue IV unasyn (initiated 02/14) supplemental oxygen as needed to titrate to sat >92% blood cultures negative to date Large hiatal hernia continue PPI general surgery consult> plan for repair today NPO Low blood pressures. Resolved bp continues to be stable Hypokalemia resolved with repletion DVT prophylaxis with lovenox Attending Dr. Melendez full code continue hospital stay for management of LLL pneumonia with severe sepsis requiring abx, close monitoring, and expert consultation and surgical intervention for hiatal hernia Quality Stroke Does the patient have a stroke diagnosis?: No VTE Prior VTE?: No VTE Risk Level:: Medical - moderate - high VTE Device Contraindication: Treatment Not Indicated VTE Drug Contraindication: N/A - Med Ordered
--- NOTE | 2024-02-20 14:15 | P.CONAN_ITS ---
HPI - Anesthesia Eval Consult details Narrative: 63 yo F admitted with back pain. Work-up was significant for a paraesophageal hernia. PMF Active Problems Active Problems: All Active Problems Paraesophageal hernia (Acute) Large hiatal hernia (Acute) Intractable pain (Acute) Pneumonia (Acute) Past Medical History Medical History (Updated 02/19/24 @ 12:35 by Luis Angelo MD) No pertinent past medical history Family History Family history of problems with anesthesia: No Surgical History History of Problems with Anesthesia: No Social History Social History Household Members: Spouse Housing: House Do you presently have visiting nurse or other home services: No Patient Tobacco Use Status: Never used Tobacco service: No Meds Allergies Allergy/AdvReac Type Severity Reaction Status Date / Time No Known Allergies Allergy Unverified 08/04/20 15:18 [No Known Allergies*] Active Medications: Current Medications Acetaminophen (Acetaminophen 325 Mg Tablet) 650 mg PO Q6H PRN PRN Reason: Pain, Mild (Pain Scale 1-3) Last Admin: 02/19/24 12:12 Dose: 650 mg Albuterol Sulfate (Albuterol Sulfate 90 Mcg 8 Gm Inhaler) 2 puff INHALE Q6H PRN PRN Reason: Shortness Of Breath Or Wheezing Enoxaparin Sodium (Enoxaparin Sodium 40 Mg/0.4 Ml Syringe) 40 mg SUBCUT Q24H [facility] [place] Last Admin: 02/19/24 21:23 Dose: 40 mg Guaifenesin (Guaifenesin La 600 Mg Tab.Er.12h) 600 mg PO BID [facility] Last Admin: 02/20/24 08:58 Dose: 600 mg Ampicillin Sodium/Sulbactam (Sodium 3 gm/ Sodium Chloride) 100 mls @ 200 mls/hr IV Q6H [facility] Last Infusion: 02/20/24 09:30 Dose: Infused Morphine Sulfate (Morphine Sulfate 2 Mg/Ml Cartridge) 2 mg IVPUSH Q4H PRN; Protocol PRN Reason: Pain, Severe (Pain Scale 7-10) Last Admin: 02/19/24 21:26 Dose: 2 mg Omeprazole (Omeprazole 40 Mg Capsule.Dr) 40 mg PO DAILY@0630 [facility] [place] Last Admin: 02/20/24 06:20 Dose: Not Given Ondansetron HCl (Ondansetron Hcl 4 Mg/2 Ml Vial) 4 mg IVPUSH Q8H PRN PRN Reason: Nausea and Vomiting Oxycodone HCl (Oxycodone Hcl Immed Release 5 Mg Tablet) 5 mg PO Q4H PRN PRN Reason: Pain, Moderate(Pain Scale 4-6) Senna (Sennosides 8.6 Mg Tablet) 17.2 mg PO BEDTIME PRN PRN Reason: Constipation Sodium Chloride (0.9 % Sodium Chloride Flush 3 Ml Syringe) 3 ml IVFLUSH QSHIFT [facility] [place] Last Admin: 02/20/24 08:58 Dose: 3 ml Home Medications ?Medication ?Instructions ?Recorded ?Confirmed ?Last Taken ?Type albuterol sulfate 90 mcg/actuation 2 puff inhalation Q6H PRN 02/15/24 02/15/24 Unknown History aerosol inhaler Shortness Of Breath Or Wheezing fluoride (sodium) 1.1 % dental 1 appl PO Q OTHER DAY 02/15/24 02/15/24 Unknown History paste prednisone 10 mg tablet 50 mg PO DAILY@1200 02/15/24 02/15/24 02/14/24 History pseudoephedrine HCl 30 mg tablet 60 mg PO BID@0800,1500 02/15/24 02/15/24 02/14/24 History (Sudafed) Exam Exam Date and Time: February 20, 2024 1410 Height,Weight and Vital Signs: Height 5 ft 7 in Weight 77.111 kg Last Vital Signs Temp 96.9 F 02/20/24 13:07 Pulse 72 02/20/24 13:07 Resp 16 02/20/24 13:07 BP 162/88 H 02/20/24 13:07 Pulse Ox 96 02/20/24 13:07 O2 Del Method Room Air 02/20/24 13:07 Pertinent Lab Results Pertinent Lab Results: Laboratory Tests 02/15/24 02/15/24 02/15/24 14:15 14:16 15:46 WBC 16.5 H RBC 4.36 Hgb 13.6 Hct 40.2 MCV 92.2 MCH 31.2 MCHC 33.8 RDW 11.9 Plt Count 275 MPV 10.4 Immature Gran % (Auto) Cancelled Neut % (Auto) Cancelled Lymph % (Auto) Cancelled [place] % (Auto) Cancelled Eos % (Auto) Cancelled Baso % (Auto) Cancelled Lymph # (Auto) Cancelled [place] # (Auto) Cancelled Eos # (Auto) Cancelled Baso # (Auto) Cancelled Abs Immat Gran (auto) Cancelled Absolute Neuts (auto) Cancelled Absolute Nucleated RBC 0.000 Nucleated RBC % (auto) 0.0 Neutrophils % (Manual) 85 H Band Neutrophils % 5 Lymphocytes % (Manual) 9 L Monocytes % (Manual) 1 L Abs Neuts (Manual) 14.9 H Lymphocytes # (Manual) 1.5 Monocytes # (Manual) 0.2 Toxic Vacuolation PRESENT Platelet Estimate NORMAL Large Platelets PRESENT Plt Morphology Comment NOTED RBC Morphology NOTED Ovalocytes 1+ (5-14) Hold Purple Top PT 13.1 INR 1.1 Sodium 138 Potassium 3.5 Chloride 104 Carbon Dioxide 24 Anion Gap 14 BUN 14 Creatinine 0.76 Estim Creat Clear Calc 79.0 Estimated GFR > 60 Random Glucose 139 H Lactic Acid 2.3 H* Lactic Acid F/U @ 2Hr Calcium 8.6 Magnesium 1.7 Total Bilirubin 0.8 AST 18 ALT 20 Alkaline Phosphatase 151 H Troponin I High Sens 3.0 Total Protein 6.5 Albumin 3.8 Urine Color Yellow Urine Appearance Clear Urine pH 7.0 Ur Specific [place] >= 1.030 H Urine Protein Negative Urine Glucose (UA) Negative Urine Ketones Negative Urine Blood Negative Urine Nitrite Negative Ur Leukocyte Esterase Negative Blood Type 02/15/24 02/16/24 02/18/24 19:25 05:49 08:27 WBC 17.7 H 9.4 RBC 3.58 L 3.69 L Hgb 11.2 L 11.4 L Hct 34.1 L 35.2 L MCV 95.3 95.4 MCH 31.3 30.9 MCHC 32.8 32.4 RDW 12.0 11.9 Plt Count 243 274 MPV 11.6 11.2 Immature Gran % (Auto) 0.3 Neut % (Auto) 85.2 H Lymph % (Auto) 9.2 L [place] % (Auto) 4.8 Eos % (Auto) 0.2 Baso % (Auto) 0.3 Lymph # (Auto) 1.6 [place] # (Auto) 0.8 Eos # (Auto) 0.0 Baso # (Auto) 0.1 Abs Immat Gran (auto) 0.05 H Absolute Neuts (auto) 15.1 H Absolute Nucleated RBC 0.000 0.000 Nucleated RBC % (auto) 0.0 0.0 Neutrophils % (Manual) Band Neutrophils % Lymphocytes % (Manual) Monocytes % (Manual) Abs Neuts (Manual) Lymphocytes # (Manual) Monocytes # (Manual) Toxic Vacuolation Platelet Estimate Large Platelets Plt Morphology Comment RBC Morphology Ovalocytes Hold Purple Top PT INR Sodium 141 144 Potassium 3.6 3.0 L Chloride 112 H 112 H Carbon Dioxide 18 L 26 Anion Gap 15 9 L BUN 12 4 L Creatinine 0.64 0.64 Estim Creat Clear Calc 93.8 93.8 Estimated GFR > 60 > 60 Random Glucose 71 84 Lactic Acid Lactic Acid F/U @ 2Hr 1.3 Calcium 7.8 L D 8.3 L D Magnesium Total Bilirubin AST ALT Alkaline Phosphatase Troponin I High Sens Total Protein Albumin Urine Color Urine Appearance Urine pH Ur Specific [place] Urine Protein Urine Glucose (UA) Urine Ketones Urine Blood Urine Nitrite Ur Leukocyte Esterase Blood Type 02/19/24 02/20/24 06:17 13:13 WBC RBC Hgb Hct MCV MCH MCHC RDW Plt Count MPV Immature Gran % (Auto) Neut % (Auto) Lymph % (Auto) [place] % (Auto) Eos % (Auto) Baso % (Auto) Lymph # (Auto) [place] # (Auto) Eos # (Auto) Baso # (Auto) Abs Immat Gran (auto) Absolute Neuts (auto) Absolute Nucleated RBC Nucleated RBC % (auto) Neutrophils % (Manual) Band Neutrophils % Lymphocytes % (Manual) Monocytes % (Manual) Abs Neuts (Manual) Lymphocytes # (Manual) Monocytes # (Manual) Toxic Vacuolation Platelet Estimate Large Platelets Plt Morphology Comment RBC Morphology Ovalocytes Hold Purple Top SEE NOTE PT INR Sodium 143 Potassium 3.6 Chloride 112 H Carbon Dioxide 25 Anion Gap 10 L BUN 5 L Creatinine 0.64 Estim Creat Clear Calc 93.8 Estimated GFR > 60 Random Glucose 86 Lactic Acid Lactic Acid F/U @ 2Hr Calcium 8.2 L Magnesium Total Bilirubin AST ALT Alkaline Phosphatase Troponin I High Sens Total Protein Albumin Urine Color Urine Appearance Urine pH Ur Specific [place] Urine Protein Urine Glucose (UA) Urine Ketones Urine Blood Urine Nitrite Ur Leukocyte Esterase Blood Type B Positive Airway Mallampati Class: II TM Dist: >3cm Neck ROM: Full Loose/Missing/Broken Teeth: No (crowns; patient denies any loose or broken teeth) Heart: S1S2 Lungs: CTAB Assessment and Plan Assessment Anesthesia Assessment: Anesthesia Plan Discussed and Chart Reviewed Final Anesthetic Review Family History of Problems with Anesthesia: No History of Problems with Anesthesia: No NPO: Yes ASA Class: II Final Preanesthetic Review: No Changes in Pt Med Stat, Meds/Allgs Chart Reviewed, Consent Obtained/Reviewed and Anes Risks/Benef Reviewed Patient Risk: Low Procedure Risk: Low Anesthetic Plan Anesthetic Plan: GA and Agree w/ Assess. and Plan Disposition: Standard PACU
--- NOTE | 2024-02-20 14:39 | MHC.SHP ---
Pre-Procedural Eval Section A - 24 Hr Update-Section A only Date of Service: 02/20/24 The patient is an INPATIENT: Yes Changes since office visit: No Cold of Flu in the past 2 weeks, No New Medical Problems, No Changes in Medication and No Patient answered all questions The patient has been examined within 24 hours of the surgical procedure. The History & Physical has been completed within 30 days and I have reviewed it.: Yes Section B - Complete if H&P > 30 days Chief Complaint: back pain Allergies: Allergies Allergy/AdvReac Type Severity Reaction Status Date / Time No Known Allergies Allergy Unverified 08/04/20 15:18 [No Known Allergies*] Plan I have reviewed the history and physical and performed a pertinent physical examination on my patient. No changes have occurred unless specified. Time Spent With Patient Time: Total time managing care of this patient today ____ minutes.
--- NOTE | 2024-02-20 15:42 | W.PM.OPN ---
Operative Note Operative Note Date of Service: 02/20/24 Narrative: Preoperative diagnosis: [] Paraesophageal hernia with majority of stomach in left chest Postop diagnosis: [] Same Procedure [] min exploratory laparotomy, reduction of paraesophageal hernia, repair of paraesophageal hernia, anterior gastropexy , Exparel infiltration Surgeon: [] Petey Speech Pathology Assistant: [] Vahid Type of Anesthesia: [] General Findings: [] Large paraesophageal hernia with majority of stomach in left chest. No other gross intra-abdominal pathology demonstrated. Very patulous esophageal hiatus Procedure; patient brought to the operating room, placed on operative table supine position, after an adequate level of general anesthesia was induced, the patient's abdomen which was moderately corpulent was prepped and draped in usual sterile fashion. Using an upper midline incision, this carried down through skin, subcutaneous tissue, and linea alba. Posterior fascia and peritoneum were extended along the length of the incision. Packs and retractors were placed to enhance exposure. Findings were as noted above. Very patulous esophageal hiatus was identified and majority the stomach which was up in the left chest was brought back into the abdominal cavity. The right and left crura were reapproximated using interrupted 1. Prolene sutures. NG tube was placed in the stomach and the esophagus was preserved throughout the procedure. The final closure admitted 1 fingertip with no compromise to the esophagus. Anterior gastropexy was accomplished using seromuscular to peritoneum 2-0 silk sutures to the proximal stomach in the anterior abdominal wall. At completion procedure, abdominal cavity was irrigated, and secured hemostasis. The wound Was closed in the following manner; mass closure using looped 1. PDS suture was used to close the fascia. Interrupted inverted dermal 3-0 Vicryl sutures were used to close the skin. Steri-Strips and sterile dressings were applied. Wound underwent infiltration with Exparel local anesthetic. Sponge, needle, and instrument counts reported correct. Patient tolerated the procedure well and emerged from anesthesia stable condition. EBL minimal.
[2024-02-20] MEDS: ondansetron HCL 4 MG/2 ML VIAL IVPUSH (16:26)
--- NOTE | 2024-02-20 17:02 | PC.NURSE ---
arrived from PACU at 16:45 to room 461, obtunded , responding to verbal commands, stated i don't feel good . RN clarified with the pt what it means for her and she stated that she feels nauseous. Follows commands , LAVINIA , HOB elevated , dressing to mid upper abdomen D&I
[2024-02-20] MEDS: Morphine Sulfate 4 MG/ML CARTRIDGE IVPUSH (20:14)
[2024-02-20] MEDS: Acetaminophen 1,000 MG/100 ML PIGGYBACK 400 MG IV (22:14)
[2024-02-21] VITALS (7 sets, daily range): BP systolic 132–157; BP diastolic 63–81; PULSE 69–76; RESP 16–20; TEMP 36–36.7; O2SAT 93–96
[2024-02-21] MEDS: ondansetron HCL 4 MG/2 ML VIAL IVPUSH (00:35)
[2024-02-21] MEDS: Morphine Sulfate 4 MG/ML CARTRIDGE IVPUSH ×5 (00:35→21:39)
[2024-02-21] MEDS: 0.9 % Sodium Chloride Flush 3 ML SYRINGE IVFLUSH ×3 (00:38→18:07)
[2024-02-21] MEDS: Omeprazole 40 MG CAPSULE.DR PO (05:27)
[2024-02-21] MEDS: Acetaminophen 1,000 MG/100 ML PIGGYBACK 200 MG IV (05:27)
[2024-02-21] MEDS: Ampicillin Sodium/Sulbactam Na 3 GM in 0.9 % Sodium Chloride 100 ML IV ×2 (05:57→08:58)
[2024-02-21 06:28] LABS: Hematocrit 39.7 % (37.0-47.0); Hemoglobin 13.2 g/dl (12.0-16.0); Mean Corpuscular HGB Conc 33.2 g/dl (31.0-35.0); Mean Corpuscular Hemoglobin 30.7 pg (27.0-33.0); Mean Corpuscular Volume 92.3 fL (80.0-98.0); Platelet Count 372 X10*3/uL (160-400); Red Cell Distribution Width 11.9 % (11.0-16.0); White Blood Count 19.1 X10*3/uL (4.8-10.8)
[2024-02-21 06:42] LABS: Anion Gap 12 (12-20); Blood Urea Nitrogen 8 mg/dL (9-16); Calcium 8.6 mg/dL (8.4-10.2); Carbon Dioxide 23 mmol/L (22-29); Chloride 106 mmol/L (96-108); Creatinine Clr Calc Pharmacy 101.7; Estimated Glomerular Filt Rate > 60; Glucose Random 125 mg/dL (60-115); Sodium 137 mmol/L (135-145)
[2024-02-21] MEDS: oxyCODONE HCl Immed Release 5 MG TABLET PO (08:59)
[2024-02-21] MEDS: guaiFENesin LA 600 MG TAB.ER.12H PO ×2 (09:01→21:39)
--- NOTE | 2024-02-21 10:42 | PM.PNTS ---
Subjective Subjective Date of Service: 02/21/24 Interval history: Complaining of incisional discomfort. Tolerating liquid diet. Patient would like diet advanced. Patient was evaluated with daughter and present. Physical Exam Vital Signs: Vital Signs: Last Vital Signs Temp 97.6 F 02/21/24 07:22 Pulse 75 02/21/24 07:22 Resp 20 02/21/24 07:22 BP 152/81 H 02/21/24 07:22 Pulse Ox 96 02/21/24 07:22 O2 Del Method Nasal Cannula 02/21/24 07:22 O2 Flow Rate 3 02/21/24 07:22 BMI result Body Mass Index 26.6 GI: Other: Abdomen is soft. The incision dressing clean dry and intact. Procedures Date of Service Date of Service: 02/21/24 Progress Note: A&P Assessment and plan (1) S/P repair of paraesophageal hernia: Status: Acute Plan Advance diet as tolerated, out of bed, incentive spirometry. Will filling discharge instructions. Patient thinks she would like to go home tomorrow. All questions answered. Time Spent With Patient Time: Total time managing care of this patient today ____ minutes. Quality Stroke Does the patient have a stroke diagnosis?: No VTE Prior VTE?: No VTE Risk Level:: Medical - moderate - high VTE Device Contraindication: Treatment Not Indicated VTE Drug Contraindication: N/A - Med Ordered
--- NOTE | 2024-02-21 13:11 | HO.PM.IMPN ---
Subjective Subjective Date of Service: 02/21/24 Interval History: Seen and examined this morning Follow-up for pneumonia, paraesophageal hernia Patient underwent paraesophageal hernia repair yesterday afternoon No overnight events. Reporting shikha-incisional pain. Appears to be tolerating clear liquid diet Review of Systems Review of Systems: Yes all other systems are reviewed and are negative Constitutional Constitutional: Denies chills and Denies fever(s) Cardiovascular Cardiovascular: Denies chest pain Gastrointestinal Gastrointestinal: Reports abdominal pain Physical Exam Vital Signs: Vital Signs: Last Vital Signs Temp 98.1 F 02/21/24 11:08 Pulse 73 02/21/24 11:08 Resp 20 02/21/24 11:08 BP 145/69 H 02/21/24 11:08 Pulse Ox 94 02/21/24 11:08 O2 Del Method Room Air 02/21/24 11:08 O2 Flow Rate 3 02/21/24 07:22 BMI result Body Mass Index 26.6 Const: General: cooperative, comfortable, no acute distress, alert and awake Nutritional Appearance: average body habitus Orientation/consciousness: patient oriented x3 Resp: Effort & Inspection: normal respiratory effort, able to speak in complete sentences, no respiratory distress and no use of accessory muscles Auscultation: clear to auscultation bilaterally Cardio: Rate: regular rate GI: Other: +BS, abdominal incision covered with clean/dry/intact bandage Neuro: General: patient oriented x3, moves all extremities and CN's II-XI intact bilaterally Extrem: General: Yes no pedal edema Objective Data Active Medications Albuterol Sulfate (Albuterol Sulfate 90 Mcg 8 Gm Inhaler) 2 puff INHALE Q6H PRN PRN Reason: Shortness Of Breath Or Wheezing Enoxaparin Sodium (Enoxaparin Sodium 40 Mg/0.4 Ml Syringe) 40 mg SUBCUT Q24H [facility] Last Admin: 02/19/24 21:23 Dose: 40 mg Documented By: MOOK Guaifenesin (Guaifenesin La 600 Mg Tab.Er.12h) 600 mg PO BID [facility] Last Admin: 02/21/24 09:01 Dose: 600 mg Documented By: TIFF Ampicillin Sodium/Sulbactam (Sodium 3 gm/ Sodium Chloride) 100 mls @ 200 mls/hr IV Q6H [facility] Last Admin: 02/21/24 08:58 Dose: 100 mls/hr Documented By: TIFF Acetaminophen (Ofirmev) 1,000 mg in 100 mls @ 400 mls/hr IV Q6H [facility] Last Infusion: 02/21/24 07:17 Dose: Infused Documented By: ELSY Morphine Sulfate (Morphine Sulfate 4 Mg/Ml Cartridge) 4 mg IVPUSH Q4H PRN; Protocol PRN Reason: Pain, Severe (Pain Scale 7-10) Last Admin: 02/21/24 05:27 Dose: 4 mg Documented By: ELSY Omeprazole (Omeprazole 40 Mg Capsule.Dr) 40 mg PO DAILY@0630 [facility] Last Admin: 02/21/24 05:27 Dose: 40 mg Documented By: ELSY Ondansetron HCl (Ondansetron Hcl 4 Mg/2 Ml Vial) 4 mg IVPUSH Q8H PRN PRN Reason: Nausea and Vomiting Last Admin: 02/21/24 00:35 Dose: 4 mg Documented By: ELSY Oxycodone HCl (Oxycodone Hcl Immed Release 5 Mg Tablet) 5 mg PO Q4H PRN PRN Reason: Pain, Moderate(Pain Scale 4-6) Last Admin: 02/21/24 08:59 Dose: 5 mg Documented By: TIFF Senna (Sennosides 8.6 Mg Tablet) 17.2 mg PO BEDTIME PRN PRN Reason: Constipation Sodium Chloride (0.9 % Sodium Chloride Flush 3 Ml Syringe) 3 ml IVFLUSH QSHIFT [facility] Last Admin: 02/21/24 08:58 Dose: 3 ml Documented By: TIFF Labs 02/21/24 05:53 02/21/24 05:53 Labs: Laboratory Results - last 24 hr 02/20/24 02/21/24 13:13 05:53 MCV 92.3 MCH 30.7 MCHC 33.2 RDW 11.9 Plt Count 372 D MPV 11.0 Absolute Nucleated RBC 0.000 Nucleated RBC % (auto) 0.0 Anion Gap 12 Estim Creat Clear Calc 101.7 Estimated GFR > 60 Random Glucose 125 H Calcium 8.6 Blood Type B Positive Antibody Screen NEGATIVE Microbiology Microbiology Results: Microbiology 02/15/24 15:46 Blood Culture - Final Blood - Venous No growth after 5 days. 02/15/24 15:46 Blood Culture - Final Blood - Venous No growth after 5 days. Assessment and Plan (1) S/P repair of paraesophageal hernia: Status: Acute (2) Paraesophageal hernia: Status: Acute Plan This is a 63-year-old female without any significant past medical history admitted for LLL pneumonia with severe sepsis found to have large paraesophageal hernia CAP vs aspiration with severe sepsis sepsis resolved no hypoxia chest CT shows LLL pneumonia, likely aspiration with large hiatal hernia completed course of unasyn weaned to room air blood cultures negative to date Large hiatal hernia continue PPI Seen by General surgery, postop day 1 status post paraesophageal hernia repair, gastropexy on clear liquids management as per surgical team Low blood pressures. Resolved bp continues to be stable Hypokalemia resolved with repletion DVT prophylaxis with lovenox, held for procedure, resume when ok from surgical perspective Attending Dr. Melendez full code continue hospital stay for management of LLL pneumonia with severe sepsis requiring abx, close monitoring, and expert consultation and surgical intervention for hiatal hernia Quality Stroke Does the patient have a stroke diagnosis?: No VTE Prior VTE?: No VTE Risk Level:: Medical - moderate - high VTE Device Contraindication: Treatment Not Indicated VTE Drug Contraindication: N/A - Med Ordered
[2024-02-21] MEDS: Acetaminophen 1,000 MG/100 ML PIGGYBACK 400 MG IV ×3 (13:21→21:39)
--- NOTE | 2024-02-21 13:47 | MHC.CM.PN ---
EMR reviewed and per MD rounds, pt is not medically cleared for D/C due to management of pneumonia with severe sepsis.
[2024-02-22] MEDS: 0.9 % Sodium Chloride Flush 3 ML SYRINGE IVFLUSH ×2 (00:43→08:59)
[2024-02-22 03:46] VITALS: BP 139/73; PULSE 76; RESP 16; TEMP 36; O2SAT 93
[2024-02-22] MEDS: Acetaminophen 1,000 MG/100 ML PIGGYBACK 400 MG IV ×2 (04:02→08:58)
[2024-02-22] MEDS: oxyCODONE HCl Immed Release 5 MG TABLET PO ×3 (04:25→15:15)
[2024-02-22] MEDS: Omeprazole 40 MG CAPSULE.DR PO (06:08)
[2024-02-22 07:26] VITALS: BP 142/72; PULSE 69; RESP 16; TEMP 36; O2SAT 93
[2024-02-22] MEDS: guaiFENesin LA 600 MG TAB.ER.12H PO (08:58)
--- NOTE | 2024-02-22 10:08 | P.PNGS_ITS ---
Subjective Subjective Date of Service: 02/22/24 Interval history: feels well good pain control tolerating full liquids looks well advance diet ok to dc home once tolerating diet family in room Physical Exam 2 Vital Signs: Vital Signs: Last Vital Signs Temp 96.8 F 02/22/24 07:26 Pulse 69 02/22/24 07:26 Resp 16 02/22/24 07:26 BP 142/72 H 02/22/24 07:26 Pulse Ox 93 02/22/24 07:26 O2 Del Method Room Air 02/22/24 07:26 O2 Flow Rate 3 02/21/24 07:22 BMI result Body Mass Index 26.6 Objective Data Active Medications Albuterol Sulfate (Albuterol Sulfate 90 Mcg 8 Gm Inhaler) 2 puff INHALE Q6H PRN PRN Reason: Shortness Of Breath Or Wheezing Enoxaparin Sodium (Enoxaparin Sodium 40 Mg/0.4 Ml Syringe) 40 mg SUBCUT Q24H [facility] [place] Last Admin: 02/19/24 21:23 Dose: 40 mg Documented By: MOOK Guaifenesin (Guaifenesin La 600 Mg Tab.Er.12h) 600 mg PO BID [facility] [place] Last Admin: 02/22/24 08:58 Dose: 600 mg Documented By: ALFRED Acetaminophen (Ofirmev) 1,000 mg in 100 mls @ 400 mls/hr IV Q6H [facility] [place] Last Infusion: 02/22/24 09:23 Dose: Infused Documented By: ALFRED Morphine Sulfate (Morphine Sulfate 4 Mg/Ml Cartridge) 4 mg IVPUSH Q4H PRN; Protocol PRN Reason: Pain, Severe (Pain Scale 7-10) Last Admin: 02/21/24 21:39 Dose: 4 mg Documented By: WILLIAM Omeprazole (Omeprazole 40 Mg Capsule.Dr) 40 mg PO DAILY@0630 [facility] [place] Last Admin: 02/22/24 06:08 Dose: 40 mg Documented By: JJ Ondansetron HCl (Ondansetron Hcl 4 Mg/2 Ml Vial) 4 mg IVPUSH Q8H PRN PRN Reason: Nausea and Vomiting Last Admin: 02/21/24 00:35 Dose: 4 mg Documented By: ELSY Oxycodone HCl (Oxycodone Hcl Immed Release 5 Mg Tablet) 5 mg PO Q4H PRN PRN Reason: Pain, Moderate(Pain Scale 4-6) Last Admin: 02/22/24 08:58 Dose: 5 mg Documented By: ALFRED Senna (Sennosides 8.6 Mg Tablet) 17.2 mg PO BEDTIME PRN PRN Reason: Constipation Sodium Chloride (0.9 % Sodium Chloride Flush 3 Ml Syringe) 3 ml IVFLUSH QSHIFT [facility] [place] Last Admin: 02/22/24 08:59 Dose: 3 ml Documented By: ALFRED Labs 02/21/24 05:53 02/21/24 05:53 Procedures Date of Service Date of Service: 02/22/24 Progress Note: A&P Time Spent With Patient Time: Total time managing care of this patient today ____ minutes. Quality Stroke Does the patient have a stroke diagnosis?: No VTE Prior VTE?: No VTE Risk Level:: Medical - moderate - high VTE Device Contraindication: Treatment Not Indicated VTE Drug Contraindication: N/A - Med Ordered
[2024-02-22 12:00] VITALS: BP 171/79; PULSE 70; RESP 16; TEMP 36.7; O2SAT 95
--- NOTE | 2024-02-22 13:18 | P.PNIM_ITS ---
Subjective Subjective Date of Service: 02/22/24 Interval History: Seen and examined this morning Follow-up for pneumonia, large paraesophageal hernia, postop day 2 Physical Exam 2 Vital Signs: Vital Signs: Last Vital Signs Temp 98.0 F 02/22/24 12:00 Pulse 70 02/22/24 12:00 Resp 16 02/22/24 12:00 BP 171/79 H 02/22/24 12:00 Pulse Ox 95 02/22/24 12:00 O2 Del Method Room Air 02/22/24 12:00 O2 Flow Rate 3 02/21/24 07:22 BMI result Body Mass Index 26.6 Objective Data Active Medications Albuterol Sulfate (Albuterol Sulfate 90 Mcg 8 Gm Inhaler) 2 puff INHALE Q6H PRN PRN Reason: Shortness Of Breath Or Wheezing Enoxaparin Sodium (Enoxaparin Sodium 40 Mg/0.4 Ml Syringe) 40 mg SUBCUT Q24H [facility] Last Admin: 02/19/24 21:23 Dose: 40 mg Documented By: MOOK Guaifenesin (Guaifenesin La 600 Mg Tab.Er.12h) 600 mg PO BID [facility] Last Admin: 02/22/24 08:58 Dose: 600 mg Documented By: ALFRED Acetaminophen (Ofirmev) 1,000 mg in 100 mls @ 400 mls/hr IV Q6H [facility] Last Infusion: 02/22/24 09:23 Dose: Infused Documented By: ALFRED Morphine Sulfate (Morphine Sulfate 4 Mg/Ml Cartridge) 4 mg IVPUSH Q4H PRN; Protocol PRN Reason: Pain, Severe (Pain Scale 7-10) Last Admin: 02/21/24 21:39 Dose: 4 mg Documented By: WILLIAM Omeprazole (Omeprazole 40 Mg Capsule.) 40 mg PO DAILY@0630 [facility] Last Admin: 02/22/24 06:08 Dose: 40 mg Documented By: JJ Ondansetron HCl (Ondansetron Hcl 4 Mg/2 Ml Vial) 4 mg IVPUSH Q8H PRN PRN Reason: Nausea and Vomiting Last Admin: 02/21/24 00:35 Dose: 4 mg Documented By: ELSY Oxycodone HCl (Oxycodone Hcl Immed Release 5 Mg Tablet) 5 mg PO Q4H PRN PRN Reason: Pain, Moderate(Pain Scale 4-6) Last Admin: 02/22/24 08:58 Dose: 5 mg Documented By: ALFRED Senna (Sennosides 8.6 Mg Tablet) 17.2 mg PO BEDTIME PRN PRN Reason: Constipation Sodium Chloride (0.9 % Sodium Chloride Flush 3 Ml Syringe) 3 ml IVFLUSH QSHIFT [facility] Last Admin: 02/22/24 08:59 Dose: 3 ml Documented By: ALFRED Labs 02/21/24 05:53 02/21/24 05:53 Quality Stroke Does the patient have a stroke diagnosis?: No VTE Prior VTE?: No VTE Risk Level:: Medical - moderate - high VTE Device Contraindication: Treatment Not Indicated VTE Drug Contraindication: N/A - Med Ordered
--- NOTE | 2024-02-22 14:42 | P.DS_ITS ---
DS: Providers Provider Date of Service: 02/22/24 Date of admission: 02/15/24 19:28 Date of discharge: 02/22/24 Primary care physician: None Physician Consults: 02/15/24 19:28 Consult to General Surgery Routine [place]ing [place] [facility] [place] [facility] Reason for consultation: large hiatal hernia likely causing aspiration Attending physician on discharge: Dereck Owens Discharging clinician: Clarita Cadena DS: Diagnosis Discharge Diagnosis (1) S/P repair of paraesophageal hernia: Status: Acute (2) Paraesophageal hernia: Status: Acute DS: Summary Hospital Course Hospital Course: From H&P on the day of admission 63-year-old female without any significant past medical history presented to the ED earlier today for evaluation of sudden sharp left-sided low back pain radiating to the left scapula with associated shortness of breath and cough. States she was diagnosed with a sinus infection and has been taking prednisone for the last 4 days with improvement in sinus pressure but developed cough 2 days ago. She states over the last few months she has had waves of nausea but no vomiting. Denies any sore throat, fevers, chills, globus sensation, dysphagia, vomiting, abdominal pain, wheezing, lightheadedness, chest pain. In the ED, pt had soft blood pressures improvement to 96/58 on admission with mild tachycardia to 101. No hypoxia. There is a leukocytosis of 16.5 with left shift. Renal function electrolyte levels normal. Lactic acid 2.3, repeat pending. Troponin 3. Urinalysis unremarkable. CT chest and CT abdomen/pelvis shows persistent dense consolidation in the dependent left lower lobe suggestive of aspiration or infectious etiology. There is also moderate to large size hiatal hernia without any obstructive changes in the bowel or any other acute process within the abdomen. CT abdomen/pelvis with contrast also shows very small left-sided pleural effusion and airspace opacities in the left lung base again consistent with aspiration. In the ED has been given 2 L IV NS, ketorolac, fentanyl, Zosyn. Patient was admitted for left lower lobe pneumonia with severe sepsis. Leukocytosis and tachycardia resolved. She was initially treated with IV Unasyn. She passed bedside swallow evaluation. She was also noted to have large hiatal hernia which was likely contributing. She was seen in consultation by General surgery and thoracic surgery rec who recommended repair of paraesophageal hernia. She underwent surgical repair on February 19. She has had a uneventful postoperative course. Her diet was advanced and she is currently tolerating a regular diet. She completed a course of Unasyn during her hospitalization. Blood cultures have remained negative to date. Time Attestation Discharge Coordination Time (in mins): 36 Quality: Safe Use of Opioids Does Pt have an Active Cancer Diagnosis on the Problem List?: No Quality: Stroke Does the patient have a stroke diagnosis?: No Physical Exam Vital Signs: Vital Signs: Last Vital Signs Temp 98.0 F 02/22/24 12:00 Pulse 70 02/22/24 12:00 Resp 16 02/22/24 12:00 BP 171/79 H 02/22/24 12:00 Pulse Ox 95 02/22/24 12:00 O2 Del Method Room Air 02/22/24 12:00 O2 Flow Rate 3 02/21/24 07:22 BMI result Body Mass Index 26.6 Const: General: cooperative, comfortable, no acute distress, alert and awake Nutritional Appearance: average body habitus Orientation/consciousness: patient oriented x3 Resp: Effort & Inspection: normal respiratory effort, able to speak in complete sentences, no respiratory distress and no use of accessory muscles Auscultation: clear to auscultation bilaterally Cardio: Rate: regular rate GI: Other: +BS, abdominal incision clean no erythem a Inspection: No distended Palpation (GI): Soft to palpation and nontender Neuro: General: patient oriented x3, moves all extremities and CN's II-XI intact bilaterally Extrem: General: Yes no pedal edema Discharge Plan Discharge Anticipated Discharge Date/Time: 02/22/24 10:45 Patient Disposition: Home, Self-Care Discharge Diagnosis: Paraesophageal hernia repair Referrals: Physician,None [Primary Care Provider] - 1 Week Luis Angelo MD [Physician] - 1 Week Discharge Medications: New hydrocodone-acetaminophen 5-325 mg tablet 1 tab PO Q4-6H PRN (Reason: pain) Qty: 30 0RF Rx Instructions: Partial Fill upon patient request. Continued albuterol sulfate 90 mcg/actuation HFA aerosol inhaler 2 puff INHALATION Q6H PRN (Reason: Shortness Of Breath Or Wheezing) fluoride (sodium) 1.1 % paste 1 appl PO Q OTHER DAY Discontinued prednisone 10 mg tablet 50 mg PO DAILY@1200 Rx Instructions: x5 days. pseudoephedrine HCl [Sudafed] 30 mg Tablet 60 mg PO BID@0800,1500 Rx Instructions: DNExceed 4 doses/24h x5 days with the prednisone Discharge Orders: Discharge Order (Routine); Ordered 02/22/24 Ordered By: Clarita Cadena Diet: Advance to usual diet Activity on Discharge: No heavy lifting Stand Alone Forms: Patient Portal Discharge page Print Language: Niuean Activity Restrictions/Additional Instructions: Leave Steri-Strips intact. No strenuous activities Care Plan Goals: See below Health Concerns: Complete a course of antibiotics for pneumonia during hospitalization, no further antibiotics required Plan of Treatment: Call to schedule follow-up appointment with Dr. Angelo in 1 week Assessment: See discharge summary Patient Instructions: Pneumonia (ED)
[2024-02-22 14:46] VITALS: BP 118/63; PULSE 80; O2SAT 95
--- NOTE | 2024-02-22 15:10 | MHC.CM.PN ---
pt dcd home no servies
== END 2024-02-22 15:44 | disposition home or self-care (01) | DRG 710 ==
LOC: HO.ED 16:58 → HO.EDOVER 19:40 → HO.IMC 21:36 → HO.S3 02-21 12:52
PROVIDERS: Nurse Practitioner Acute Care; Physician Assistant; Surgery; Admitting Provider Physician Assistant; Emergency Provider Student in an Organized Health Care Education/Training Program; Visit Provider Physician Assistant Medical
PROC: 0BQT0ZZ Repair Diaphragm, Open Approach (ICD-10-PCS; principal; 2024-02-20 13:30)
DX: A41.9 Sepsis, unspecified organism (principal); J69.0 Pneumonitis due to inhalation of food and vomit; R65.20 Severe sepsis without septic shock; K44.0 Diaphragmatic hernia with obstruction, without gangrene; E87.6 Hypokalemia; R03.1 Nonspecific low blood-pressure reading
CPT/HCPCS: 36415; 71045; 71250; 74150; 74177; 80048; 80053; 81003; 83605; 83735; 84484; 85007; 85025; 85027; 85610; 86850; 86900; 86901; 87040; 93005; 99285; C9290; J0131; J0295; J0330; J0665; J1100; J1170; J1630; J1650; J1885; J2250; J2270; J2405; J2543; J2704; J3010; Q9967

== ENCOUNTER → 2024-02-15 13:53 | Outpatient (BNV) | payer BC, MEDICARE, SELFPAY | PROVIDERS: Admitting Provider Physician Assistant; Emergency Provider Student in an Organized Health Care Education/Training Program; Visit Provider Internal Medicine Cardiovascular Disease | DX: I45.19 Other right bundle-branch block (principal); R94.31 Abnormal electrocardiogram [ECG] [EKG]; M25.512 Pain in left shoulder | CPT/HCPCS: 93010 ==

== ENCOUNTER → 2024-02-15 19:28 | Outpatient (BNV) | payer BC, MEDICARE, SELFPAY | PROVIDERS: Admitting Provider Physician Assistant; Emergency Provider Student in an Organized Health Care Education/Training Program; Visit Provider Surgery | DX: K44.9 Diaphragmatic hernia without obstruction or gangrene (principal); Z87.19 Personal history of other diseases of the digestive system; Z98.890 Other specified postprocedural states; Z48.89 Encounter for other specified surgical aftercare | CPT/HCPCS: 43332; 99024; 99222; 99232 ==

== ENCOUNTER → 2024-02-15 19:28 | Outpatient (BNV) | payer BC, MEDICARE, SELFPAY | PROVIDERS: Admitting Provider Physician Assistant; Emergency Provider Student in an Organized Health Care Education/Training Program; Visit Provider Physician Assistant | DX: K44.9 Diaphragmatic hernia without obstruction or gangrene (principal); Z87.19 Personal history of other diseases of the digestive system | CPT/HCPCS: 99223; 99232; 99239 ==

== ENCOUNTER 2024-02-26 14:42 | Outpatient (AMB) | payer BC, MEDICARE, SELFPAY ==
--- NOTE | 2024-02-26 14:45 | MHC.OFFVIS ---
Intake Intake Visit Reasons: s/p inpatient min exploratory laparotomy Intake Note: Patient here s/p inpatient min exp laparotomy. Reports incisions healing well. Denies. bleeding. Patient c/o: sore, abd tender to touch. Still taking rx pain meds. SX: 02-20-24. Floor Cleaner Required: No Accompanied by: Daughter Allergies No Known Allergies [No Known Allergies*] Allergy (Unverified 02/26/24 14:47) HPI HPI Comments History of Present Illness Details Patient presents with family member for follow-up. All things considered, she is doing quite well. She is tolerating diet. Having regular bowel habits. Her original chest pain has completely resolved. She just has incisional c discomfort which is improving COUNTS INCLUDE 234 BEDS AT THE [facility] Medical History No pertinent past medical history Social History Household Members: Spouse Housing: House Do you presently have visiting nurse or other home services: No Patient Tobacco Use Status: Never used Tobacco service: No Physical Exam GI Other: Abdomen is soft. Wound clean dry and intact healing very well Assessment & Plan Assessment & Plan (1) S/P repair of paraesophageal hernia: Code(s): Z98.890 - Other specified postprocedural states; Z87.19 - Personal history of other diseases of the digestive system Plan Patient has been given very specific local instructions including avoiding strenuous activities next 4-6 weeks time, she can ambulate, she is avoid heavy lifting, and a work note will be provided with light duty. All questions answered. Patient will otherwise follow-up p.r.n. Coding Level of Care Code Global (05744) Diagnoses S/P repair of paraesophageal hernia Z98.890; Z87.19
== END 2024-02-26 14:59 | disposition home or self-care (01) ==
PROVIDERS: Visit Provider Surgery
DX: Z98.890 Other specified postprocedural states (principal); Z87.19 Personal history of other diseases of the digestive system
CPT/HCPCS: 99024

== ENCOUNTER → 2024-02-26 14:42 | Outpatient (BNVA) | payer BC, MEDICARE, SELFPAY | PROVIDERS: Visit Provider Surgery ==

== ENCOUNTER 2024-05-22 14:35 | Emergency (ER) | payer BC, MEDICARE, SELFPAY ==
--- NOTE | ~2024-05-22 | CT_ITS ---
EXAMINATION: CT HEAD WITHOUT CONTRAST CLINICAL INFORMATION: Fall, head injury COMPARISON: None available. TECHNIQUE: Contiguous axial imaging was performed from the skull base to vertex without intravenous administration of contrast. This CT examination was performed using dose optimization techniques as appropriate, variously including the following: *Automated exposure control *Adjustment of mA and/or kV according to patient size (this includes techniques or standardized protocols for targeted exams where dose is matched to indication/reason for exam; i.e. extremities or head) *Use of iterative reconstruction technique DLP: 572 mGy-cm FINDINGS: The ventricles and sulci are normal in size and configuration. No acute hemorrhage, mass effect or shift is evident. Johnson-white differentiation is maintained. In the posterior fossa, the brainstem, cerebellum and fourth ventricle image normally. The orbits and calvarium are intact. The paranasal sinuses and mastoid air cells are well pneumatized and clear. CT/CT head/brain wo IV con IMPRESSION: 1. Unremarkable noncontrast brain CT. No acute hemorrhage, mass effect or shift.
--- NOTE | ~2024-05-22 | CT_ITS ---
EXAMINATION: CT CERVICAL SPINE WITHOUT CONTRAST CLINICAL INFORMATION: Fell down, neck injury and pain COMPARISON: None available. TECHNIQUE: Multiple 2.0 mm axial images were obtained from base of skull to T1 levels without IV contrast enhancement. Sagittal and coronal 2.0 mm bone window images were reconstructed from axial image data. This CT examination was performed using dose optimization techniques as appropriate, variously including the following: *Automated exposure control *Adjustment of mA and/or kV according to patient size (this includes techniques or standardized protocols for targeted exams where dose is matched to indication/reason for exam; i.e. extremities or head) *Use of iterative reconstruction technique DLP: 787.26 mGy-cm FINDINGS: C1/C2: Bony structures are intact with normal alignment. There is no spinal stenosis. C2/C3: Bony structures are intact with normal alignment. There is no spinal stenosis. Bilateral C2/C3 neuroforamina are patent. Bilateral apophyseal joints are intact with normal alignment. C3/C4: Bony structures are intact with anterior C3 on C4 displacement by 0.2 cm. There is no spinal stenosis. Bilateral C3/C4 neuroforamina are patent. Bilateral apophyseal joints are intact with normal alignment. C4/C5: Bony structures are intact with normal alignment. There is marked decrease in intervertebral disc height. Anterior and posterior sharp syndesmophytes are present. There is no spinal stenosis. Bilateral C4/C5 neuroforamina are mildly stenosed. Bilateral apophyseal joints are intact with normal alignment. C5/C6: Bony structures are intact with normal alignment. There is marked decrease in intervertebral disc height. Anterior and posterior sharp syndesmophytes are present. There is no spinal stenosis. There are severe right and marked left C5/C6 neuroforamina stenosis. Bilateral apophyseal joints are intact with normal alignment. C6/C7: Bony structures are intact with normal alignment. There is no spinal stenosis. Bilateral C6/C7 neuroforamina are patent. Bilateral apophyseal joints are intact with normal alignment. C7/T1: Bony structures are intact with normal alignment. There is no spinal stenosis. Bilateral C7/T1 neuroforamina are patent. Bilateral apophyseal joints are intact with normal alignment. Multilevel bilateral apophyseal joint and uncovertebral joint osteoarthritis with loss of joint space, sclerosis, facet hypertrophy and osteophytosis are seen. CT/CT cervical spine wo IV con IMPRESSION: 1. No evidence of acute fracture or dislocation. 2. Multilevel cervical spondylosis including advanced C4-C5 and C5-C6 degenerative cervical disc disease. 3. Grade 1 C3-C4 anterolisthesis. 4. There is severe right and marked left C5/C6 neuroforamina stenosis. 5. There is mild bilateral C4/C5 neuroforamina stenosis. Fleischner guidelines were followed.
--- NOTE | ~2024-05-22 | XR_ITS ---
EXAMINATION: XR WRIST, LEFT CLINICAL INFORMATION: Wrist pain after fall COMPARISON: None available. TECHNIQUE: PA, lateral, navicular and oblique views of the left wrist. FINDINGS: The bones and soft tissues are normal. No fracture. Alignment is anatomic with normal joint spaces. There is a normal volar tilt of the distal radial articular surface. No erosions or abnormal soft tissue calcifications. XR/XR wrist LT 2V IMPRESSION: Normal left wrist.
--- NOTE | ~2024-05-22 | XR_ITS ---
EXAMINATION: XR FOREARM, LEFT CLINICAL INFORMATION: Fall, pain COMPARISON: None available. TECHNIQUE: AP and lateral views of the left forearm were obtained. FINDINGS: The bones and soft tissues are normal. No fracture. Imaged portions of the elbow and wrist are unremarkable. XR/XR forearm LT 2V IMPRESSION: Normal left forearm.
[2024-05-22 14:51] VITALS: BP 148/85; PULSE 76; RESP 18; TEMP 36; O2SAT 98; BMI 25.7
--- NOTE | 2024-05-22 14:52 | ED_ITS ---
HPI - General Adult General Chief complaint: Fall Stated complaint: Fall today - head & wrist injury Time Seen by Provider: 05/22/24 19:04 History of Present Illness ED Provider: Dr. Franz HPI narrative: 63 y/o F patient; PMH paraesophageal hernia; presents from home with report of witnessed trip and fall immediately prior to arrival. The patient states she was walking when she tripped and fell forward striking her head. She did not lose consciousness and was able to ambulate on her own. She primarily complains of generalized non-focal headache, nausea without vomiting, and left wrist pain. She denies: abdominal pain, chest pain, SOB. Related Data Home Medications ?Medication ?Instructions ?Recorded ?Confirmed albuterol sulfate 90 mcg/actuation 2 puff inhalation Q6H PRN 02/15/24 02/15/24 aerosol inhaler Shortness Of Breath Or Wheezing fluoride (sodium) 1.1 % dental 1 appl PO Q OTHER DAY 02/15/24 02/15/24 paste Previous Rx's ?Medication ?Instructions ?Recorded hydrocodone 5 mg-acetaminophen 325 1 tab PO Q4-6H PRN pain #30 tabs 02/22/24 mg tablet Allergies Allergy/AdvReac Type Severity Reaction Status Date / Time No Known Allergies Allergy Verified 05/22/24 14:55 [No Known Allergies*] Review of Systems 2 Review of Systems: Yes all other systems are reviewed and are negative Neurologic: Denies Sensory deficit (Neuro) [facility], [facility] Past Medical History Attestation statement: The following information was validated with the patient. Source: old records reviewed Medical History Paraesophageal hernia No pertinent past medical history Social History Social History Household Members: Spouse Housing: House Do you presently have visiting nurse or other home services: No Patient Tobacco Use Status: Never used Tobacco Advance Directives: Yes Advance Directives on File: Yes Advance Directives Date on File: 02/24/24 Do you have a plan to hurt others: No Plan service: No Physical Exam ED Vital Signs: Vital Signs - 24 hr 05/22/24 14:51 05/22/24 17:10 Temperature 96.8 F 98.1 F Pulse Rate 76 80 Respiratory Rate 18 19 Blood Pressure 148/85 H 118/77 Pulse Oximetry 98 99 Oxygen Delivery Method Room Air Room Air BMI result Body Mass Index 25.7 Patient is afebrile and hemodynamically stable. Const General: cooperative Orientation/consciousness: patient oriented x3 HENMT Head: Yes normal to inspection and Yes atraumatic Eyes General: appearance normal, both eyes and all related structures Pupils: Equal, round and reactive pupils present EOM: EOMs intact bilaterally Neck Neck: Yes normal visual inspection, Yes full ROM, Yes supple and No tender Chest Chest palpation & inspection: normal inspection of the chest and normal palpation of entire chest wall Resp Effort & Inspection: normal respiratory effort, able to speak in complete sentences, no cough and no respiratory distress Auscultation: clear to auscultation bilaterally Cardio Rate: regular rate Rhythm: regular rhythm Peripheral pulses: Peripheral pulses 2+ throughout GI Inspection: Yes normal to inspection, No Abdominal wall edema and No distended Palpation (GI): Soft to palpation, not firm, nontender, no guarding and not rigid Auscultation: normal bowel sounds Back/Spine/Pelvis Back: No back tenderness Neuro General: patient oriented x3 Cranial nerves: Yes Equal, round and reactive pupils present Motor exam (neuro): 5/5 motor strength present throughout Sensory Exam: No Sensory deficit (Neuro) Course Course Course Narrative: This is an RME done by RENETTA Peoples: Additional HPI, ROS, PE not included below will be deferred to primary provider. 63 yo female presenting with L wrist pain, headache, nuasea after fall this afternoon. + Head strike, no LOC, not on thinners. Appearance: Alert.? Oriented X3.? No acute cardiopulmonary distress distress.? Head: Normocephalic, atraumatic, no step-offs or deformities Neck: Normal inspection.? Neck supple.? CVS: Pulses normal.? Respiratory: No respiratory distress.? Skin: ? Normal skin color. Extremities: 5/5 strength to bilateral upper and lower extremities Back: No midline tenderness, no C-spine tenderness, full range of motion, No CVA tenderness bilaterally Neuro: Oriented X 3.? No motor deficit.? No sensory deficit. Reevaluation(s) Reevaluation #1: Patient is afebrile and hemodynamically stable. CT Head and Cervical Spine without acute traumatic changes. XR Left Wrist and Forearm. CBC unremarkable. Troponin 9.3. Patient denies any chest pain or palpitations. States fall today was mechanical in nature as she tripped over her grand-daughter. EKG is reassuring. Patient is ambulatory without difficulty. Plan: Discharge to home with PCP follow up Return precautions given Medical Decision Making Lab Data 05/22/24 15:19 05/22/24 15:19 Labs: Lab Results 05/22/24 Range/Units 15:19 WBC 8.5 (4.8-10.8) X10*3/uL RBC 4.55 (4.20-5.50) X10*6/uL Hgb 14.0 (12.0-16.0) g/dl Hct 43.1 (37.0-47.0) % MCV 94.7 (80.0-98.0) fL MCH 30.8 (27.0-33.0) pg MCHC 32.5 (31.0-35.0) g/dl RDW 12.2 (11.0-16.0) % Plt Count 294 (160-400) X10*3/uL MPV 11.2 (9.4-12.3) fL Immature Gran % (Auto) 0.2 (0.0-0.4) % Neut % (Auto) 69.3 (45-73) % Lymph % (Auto) 18.8 L (20-40) % Alpine % (Auto) 7.1 (2-11) % Eos % (Auto) 3.9 (0-4) % Baso % (Auto) 0.7 (0-2) % Lymph # (Auto) 1.6 (1.2-4.9) X10*3/uL Alpine # (Auto) 0.6 (0.1-1.2) X10*3/uL Eos # (Auto) 0.3 (0.0-0.4) X10*3/uL Baso # (Auto) 0.1 (0.0-0.2) X10*3/uL Abs Immat Gran (auto) 0.02 (0.00-0.03) X10*3/uL Absolute Neuts (auto) 5.9 (2.0-8.3) x10*3/uL Absolute Nucleated RBC 0.000 (0.0-0.012) X10*3/uL Nucleated RBC % (auto) 0.0 (0.0-0.2) /100WBC Sodium 142 (135-145) mmol/L Potassium 4.7 (3.3-5.1) mmol/L Chloride 107 (96-108) mmol/L Carbon Dioxide 25 (22-29) mmol/L Anion Gap 15 (12-20) BUN 11 (9-16) mg/dL Creatinine 0.75 (0.5-1.4) mg/dL Estim Creat Clear Calc 78.7 Estimated GFR > 60 Random Glucose 103 (60-115) mg/dL Calcium 9.7 D (8.4-10.2) mg/dL Total Bilirubin 0.8 (0.0-1.0) mg/dL AST 28 (5-31) U/L ALT 26 (0-31) U/L Alkaline Phosphatase 165 H (39-117) U/L Troponin I High Sens 9.3 D (<3.5-17.0) ng/L Total Protein 6.8 (6.5-8.0) g/dL Albumin 4.1 (3.5-5.0) g/dL Independent Interpretation I performed an independent interpretation of an: EKG Interpretation: NSR 63BPM without ischemic changes Radiology Impression Discussion of test interpretation with radiology: I have reviewed the radiologist's reading. Radiologist Impression: EXAMINATION: CT HEAD WITHOUT CONTRAST CLINICAL INFORMATION: Fall, head injury COMPARISON: None available. TECHNIQUE: Contiguous axial imaging was performed from the skull base to vertex without intravenous administration of contrast. This CT examination was performed using dose optimization techniques as appropriate, variously including the following: *Automated exposure control *Adjustment of mA and/or kV according to patient size (this includes techniques or standardized protocols for targeted exams where dose is matched to indication/reason for exam; i.e. extremities or head) *Use of iterative reconstruction technique DLP: 572 mGy-cm FINDINGS: The ventricles and sulci are normal in size and configuration. No acute hemorrhage, mass effect or shift is evident. Johnson-white differentiation is maintained. In the posterior fossa, the brainstem, cerebellum and fourth ventricle image normally. The orbits and calvarium are intact. The paranasal sinuses and mastoid air cells are well pneumatized and clear. CT/CT head/brain wo IV con IMPRESSION: 1. Unremarkable noncontrast brain CT. No acute hemorrhage, mass effect or shift. EXAMINATION: CT CERVICAL SPINE WITHOUT CONTRAST CLINICAL INFORMATION: Fell down, neck injury and pain COMPARISON: None available. TECHNIQUE: Multiple 2.0 mm axial images were obtained from base of skull to T1 levels without IV contrast enhancement. Sagittal and coronal 2.0 mm bone window images were reconstructed from axial image data. This CT examination was performed using dose optimization techniques as appropriate, variously including the following: *Automated exposure control *Adjustment of mA and/or kV according to patient size (this includes techniques or standardized protocols for targeted exams where dose is matched to indication/reason for exam; i.e. extremities or head) *Use of iterative reconstruction technique DLP: 787.26 mGy-cm FINDINGS: C1/C2: Bony structures are intact with normal alignment. There is no spinal stenosis. C2/C3: Bony structures are intact with normal alignment. There is no spinal stenosis. Bilateral C2/C3 neuroforamina are patent. Bilateral apophyseal joints are intact with normal alignment. C3/C4: Bony structures are intact with anterior C3 on C4 displacement by 0.2 cm. There is no spinal stenosis. Bilateral C3/C4 neuroforamina are patent. Bilateral apophyseal joints are intact with normal alignment. C4/C5: Bony structures are intact with normal alignment. There is marked decrease in intervertebral disc height. Anterior and posterior sharp syndesmophytes are present. There is no spinal stenosis. Bilateral C4/C5 neuroforamina are mildly stenosed. Bilateral apophyseal joints are intact with normal alignment. C5/C6: Bony structures are intact with normal alignment. There is marked decrease in intervertebral disc height. Anterior and posterior sharp syndesmophytes are present. There is no spinal stenosis. There are severe right and marked left C5/C6 neuroforamina stenosis. Bilateral apophyseal joints are intact with normal alignment. C6/C7: Bony structures are intact with normal alignment. There is no spinal stenosis. Bilateral C6/C7 neuroforamina are patent. Bilateral apophyseal joints are intact with normal alignment. C7/T1: Bony structures are intact with normal alignment. There is no spinal stenosis. Bilateral C7/T1 neuroforamina are patent. Bilateral apophyseal joints are intact with normal alignment. Multilevel bilateral apophyseal joint and uncovertebral joint osteoarthritis with loss of joint space, sclerosis, facet hypertrophy and osteophytosis are seen. CT/CT cervical spine wo IV con IMPRESSION: 1. No evidence of acute fracture or dislocation. 2. Multilevel cervical spondylosis including advanced C4-C5 and C5-C6 degenerative cervical disc disease. 3. Grade 1 C3-C4 anterolisthesis. 4. There is severe right and marked left C5/C6 neuroforamina stenosis. 5. There is mild bilateral C4/C5 neuroforamina stenosis. Fleischner guidelines were followed. EXAMINATION: XR WRIST, LEFT CLINICAL INFORMATION: Wrist pain after fall COMPARISON: None available. TECHNIQUE: PA, lateral, navicular and oblique views of the left wrist. FINDINGS: The bones and soft tissues are normal. No fracture. Alignment is anatomic with normal joint spaces. There is a normal volar tilt of the distal radial articular surface. No erosions or abnormal soft tissue calcifications. XR/XR wrist LT 2V IMPRESSION: Normal left wrist. EXAMINATION: XR FOREARM, LEFT CLINICAL INFORMATION: Fall, pain COMPARISON: None available. TECHNIQUE: AP and lateral views of the left forearm were obtained. FINDINGS: The bones and soft tissues are normal. No fracture. Imaged portions of the elbow and wrist are unremarkable. XR/XR forearm LT 2V IMPRESSION: Normal left forearm. Discharge Plan Discharge Clinical Impression: Fall, Acute head trauma, Acute wrist pain Patient Disposition: Home, Self-Care Instructions: Concussion (ED) Additional Instructions: As we discussed, you were seen today after your fell and struck your head. Your XRs and CT Head/Neck did not show any broken bones. Recommend you follow up with your PCP within the next 24 hours for re- evaluation. Return to the emergency department for: Worsening headache Numbness/weakness/tingling of your arms or legs Slurred speech Facial droop Prescriptions: No Action albuterol sulfate 90 mcg/actuation HFA aerosol inhaler 2 puff INHALATION Q6H PRN (Reason: Shortness Of Breath Or Wheezing) fluoride (sodium) 1.1 % paste 1 appl PO Q OTHER DAY hydrocodone-acetaminophen 5-325 mg tablet 1 tab PO Q4-6H PRN (Reason: pain) Qty: 30 0RF Rx Instructions: Partial Fill upon patient request. Print Language: Congolese
--- NOTE | 2024-05-22 14:56 | ECG_ITS ---
Test Reason : FALL Blood Pressure : / mmHG Vent. Rate : 063 BPM Atrial Rate : 063 BPM P-R Int : 190 ms QRS Dur : 110 ms QT Int : 432 ms P-R-T Axes : 049 061 030 degrees QTc Int : 442 ms Normal sinus rhythm Low voltage QRS Right bundle branch block Abnormal ECG When compared with ECG of 15-FEB-2024 14:03, Vent. rate has decreased BY 37 BPM Referred By: Orin Peoples Electronically Signed By:RADHA GROVER
[2024-05-22 15:26] LABS: MANUAL DIFF FLAG NO
[2024-05-22 15:35] LABS: Basophils Absolute Auto 0.1 X10*3/uL (0.0-0.2); Basophils Percent Auto 0.7 % (0-2); Eosinophils Absolute Auto 0.3 X10*3/uL (0.0-0.4); Eosinophils Percent Auto 3.9 % (0-4); Hematocrit 43.1 % (37.0-47.0); Imm Gran Abs Auto 0.02 X10*3/uL (0.00-0.03); Imm Gran Pct Auto 0.2 % (0.0-0.4); Lymphocytes Absolute Auto 1.6 X10*3/uL (1.2-4.9); Lymphocytes Percent Auto 18.8 % (20-40); Mean Corpuscular HGB Conc 32.5 g/dl (31.0-35.0); Mean Corpuscular Hemoglobin 30.8 pg (27.0-33.0); Mean Corpuscular Volume 94.7 fL (80.0-98.0); Mean Platelet Volume 11.2 fL (9.4-12.3); Monocytes Absolute Auto 0.6 X10*3/uL (0.1-1.2); Monocytes Percent Auto 7.1 % (2-11); Neutrophils Absolute Auto 5.9 x10*3/uL (2.0-8.3); Neutrophils Percent Auto 69.3 % (45-73); Platelet Count 294 X10*3/uL (160-400); Red Blood Count 4.55 X10*6/uL (4.20-5.50); Red Cell Distribution Width 12.2 % (11.0-16.0); White Blood Count 8.5 X10*3/uL (4.8-10.8)
[2024-05-22 15:44] LABS: Alanine Aminotransferase 26 U/L (0-31); Albumin Level 4.1 g/dL (3.5-5.0); Alkaline Phosphatase 165 U/L (39-117); Anion Gap 15 (12-20); Aspartate Amino Transferase 28 U/L (5-31); Bilirubin Total 0.8 mg/dL (0.0-1.0); Blood Urea Nitrogen 11 mg/dL (9-16); Calcium 9.7 mg/dL (8.4-10.2); Carbon Dioxide 25 mmol/L (22-29); Chloride 107 mmol/L (96-108); Creatinine Clr Calc Pharmacy 78.7; Estimated Glomerular Filt Rate > 60; Glucose Random 103 mg/dL (60-115); Potassium 4.7 mmol/L (3.3-5.1); Sodium 142 mmol/L (135-145); Total Protein 6.8 g/dL (6.5-8.0)
[2024-05-22 15:53] LABS: Troponin-I High Sensitivity 9.3 ng/L (<3.5-17.0)
[2024-05-22 17:10] VITALS: BP 118/77; PULSE 80; RESP 19; TEMP 36.7; O2SAT 99
--- NOTE | 2024-05-22 17:15 | PC.NURSE ---
pt brought in from to [facility], pt a&ox3, vss pt awaiting provider/results of radiology. call trotter within reach, will continue to monitor
--- NOTE | 2024-05-22 18:15 | PC.NURSE ---
pt and family upset about the wait, pts radiology reports are ready, this nurse asked PIT provider if she could see the patient and discharge them as they were upset.
--- NOTE | 2024-05-22 19:20 | PC.NURSE ---
Dr. Franz picked up the patient, ordered a troponin which the patient wasnt wanting drawn. Family that was bedside was beligerant with this nurse, she was angry stating the patient hadnt had vitals obtained in over 4 hours, this nurse stated the patient had vitals when she was brought into the room at approx 1700 or so, it was now approx 1915, family stated she is supposed to have vitals done every 2 hours and they havent been done this nurse again explained that vitals are done by the acuity of the patient and she is considered low acuity and waiting for results which allows us to do them every 4 hours. The family member then asked for this nurses name which was given to them, additionally this nurse went and spoke with Dr. Franz about the patient not wanting the labs and the family member. Also spoke with our clinical coordinator about the patient being upset over the waiting to be seen by the provider once in the room and the family member being upset about her vitals not being done every 2 hours. The clinical coordinator then went into the patients room and spoke with the patient and family member as did Dr. Franz. Per Dr. Franz the patient will be discharged without the redraw. Clinical coordinator then discharged the patient after discharge vitals were performed by tech.
[2024-05-22 19:42] VITALS: BP 125/71; PULSE 83; RESP 17; TEMP 36.6; O2SAT 98
[2024-05-22 19:43] VITALS: BP 125/71; PULSE 83; RESP 17; TEMP 36.6; O2SAT 98
== END 2024-05-22 19:45 | disposition home or self-care (01) ==
PROVIDERS: Physician Assistant; Emergency Provider Emergency Medicine
DX: S09.90XA Unspecified injury of head, initial encounter (principal); W01.0XXA Fall on same level from slipping, tripping and stumbling without subsequent striking against object, initial encounter; M54.2 Cervicalgia; M25.532 Pain in left wrist; Y93.9 Activity, unspecified; Y92.9 Unspecified place or not applicable; Y99.9 Unspecified external cause status
CPT/HCPCS: 36415; 70450; 72125; 73090; 73100; 80053; 84484; 85025; 93005; 99284

== ENCOUNTER → 2024-05-22 14:56 | Outpatient (BNV) | payer BC, MEDICARE, SELFPAY | PROVIDERS: Emergency Provider Emergency Medicine; Visit Provider Internal Medicine | DX: I45.10 Unspecified right bundle-branch block (principal); R94.31 Abnormal electrocardiogram [ECG] [EKG] | CPT/HCPCS: 93010 ==

== ENCOUNTER 2025-07-05 09:40 | Outpatient (AMB) | payer MEDICARE, SELFPAY ==
--- NOTE | 2025-07-05 09:48 | A.OFFPC_ITS ---
Vital Signs 07/05/25 09:54 Height 5 ft 7 in Weight 178 lb BMI 27.9 BP 140/80 H Blood Pressure Location Lt brachial Position Sitting Respiration 13 Pulse 76 Pulse Source Pulse Oximeter Temp 97.2 F Temp Source Oral Pulse Oximetry (%) 99 Oxygen Delivery Method Room Air Intake Visit Reasons: AIRPLANE [employer] EST CARE Intake Note: New patient to establish care. Residential Youth Counselor Required: No Allergies No Known Allergies (No Known Allergies*) Allergy (Verified 07/05/25 10:19) Medication List - Last Reconciled 07/05/25 by USHA BerriosP- famotidine 20 mg PO BEDTIME Tobacco use date assessed: 07/05/25 Fall risk assessment: 1 Fall in past year Last assessed Fall Risk: 07/05/25 Dental Screening Dental Screen Date: 07/05/25 Did you have a dental visit in the last 12 months?: Yes Did you have a dental problem in the last 6 months where you did not have access to dental care?: No Was dental information given to patient?: Patient has dentist HPI HPI Comments History of Present Illness Details 64y/o F with Multilevel cervical spondyl osis including advanced C4-C5 and C5-C6 degenerative cervical disc disease, chronic GERD, menopause SurgHx: S/P repair of paraesophageal hernia FHx SocHx: , retired Health Maintenance: Colon: overdue, cologaurd ordered today Mammo: 2022, [facility] DEXA : PAP Vaccines: tdap 2017 AAA screen EKG: [place] of Care: [facility] History of Present Illness - The patient is a 64-year-old female pr esenting to est care - I had the pleasure of being her PCP a few years ago and am happy to be working w/ her again. - c/o recurring GERD - Reports heartburn recurrence post-surg mehnaz, initially noted by increased food intake. - Current heartburn managed with daily f amotidine. - Experiencing recurrent, unpredictable hot flashes different in nature from menopause, occurring four times weekly, started in April. - Reports episodic doom narrative, occur s randomly over the last few months. Denies anxiety at baseline. - Notable family history of Tina's disease (dtr) - Consents to Cologuard for colorectal s creening; avoids sedation complications post-colonoscopy history. Review of Systems - Gastrointestinal: Reports heartburn, i ncreased post-surgery. Uses famotidine daily. - Endocrine: Denies changes, family hist ory of Tina's thyroiditis noted. - Neurological: Denies chest pain, dizzi ness, or shortness of breath with anxiety episodes. - Psychiatric: Reports anxiety features; episodic sense of dread. - Respiratory: Reports prior pneumonia p ost hernia, respiratory clarity presently. - General: Reports hot flashes recurrenc e; unpredictable timings. - Musculoskeletal: Reports historical ba ck pain relieved post hernia treatment. Physical Exam General: Well developed, well nourished, in no acute distress. Appears stated age. Head: Normocephalic, atraumatic. Eyes: Pupils are equal, round and reactive to light and accommodation. Conjunctivae are clear. Lungs: Clear to auscultation bilaterally. No rales, rhonchi or wheeze noted. Good air flow in all gale. Heart: Regular rate and rhythm. No murmurs, click, rubs or gallops are noted. Psych: Mood and affect appropriate Results Pending Discussion Notes During the visit, I engaged in a detailed discussion with the patient regarding her symptoms and possible ongoing post-surgical effects. We deliberated on the ongoing heartburn, for which continued use of daily famotidine was advised due to demonstrated efficacy. We also spoke about the episodes of hot flashes and anxiety-like symptoms, with the recommendation for thyroid function evaluation due to her family history. I suggested the patient complete the Cologuard test to screen for colorectal concerns, given past anesthesia complications. Moreover, we discussed the possible need for deeper examination if labs return normal, considering anxiety as a secondary cause. The patient will follow-up after obtaining the laboratory evaluations for further therapeutic adjustments. Patient was given time to ask questions. All questions were answered to their satisfaction. Assessment and Plan 1. Hiatal Hernia with Repair - Continue famotidine. - Monitor symptoms. 2. Gastroesophageal Reflux Disease (GERD ) - Continue daily famotidine. - Monitor dietary influences. 3. Post-menopausal Symptoms with Hot Fla shes - Check thyroid function. - Monitor patterns. wonders about using Magnesium, will check lab first and then let her know. Hold off for now. 4. Anxiety with Episodes of Dread - Check thyroid function. - Consider anxiety if labs normal. Patient Instructions - Continue taking famotidine as directed . - Complete the Cologuard test as discuss ed. - Schedule and complete the thyroid func tion test. - Report any increase in unusual symptom s. - RTO Dec AWV, sooner PRN Consent Patient was informed and verbally consented to the use of an ambient scribe for clinic note documentation during this visit. Total time spent caring for the patient today was 40 minutes. This includes time spent before the visit reviewing the chart, time spent during the visit, and time spent after the visit on documentation, reviewing laboratory results, diagnostic imaging, medications, performing a medically necessary evaluation, counseling on diagnoses, care coordination, ordering appropriate tests, ordering appropriate medications, review of tests performed by other providers, reporting test results with the patient, communication with other healthcare providers. [facility] Medical History (Updated 07/05/25 @ 10:41 by HANNAH Berrios) Hernia (~2023) Hx of mammogram (~2022) No pertinent past medical history Paraesophageal hernia Pneumonia Sinusitis Surgical History (Updated 07/05/25 @ 10:41 by HANNAH Berrios) H/O wrist surgery (~1984) History of repair of hiatal hernia (~2023) Family History (Updated 07/05/25 @ 10:00 by Farzaneh Meier MA) Father Diabetes Lung cancer Mother Breast cancer Sister Leukemia Father No problems noted. Brother Leukemia Social History (Updated 07/05/25 @ 09:56 by Farzaneh Meier MA) Household Members: Spouse and Children Both parents involved: No Caregiver staying overnight: No Housing: House Are you a primary aged or disabled carer to a significant other at home: Yes Do you presently have visiting nurse or other home services: No 75 years or older and lives alone: No Alcohol intake: current Alcohol intake frequency: a few times a month Patient Tobacco Use Status: Never used Tobacco e-Cigarette/Vaping Use: Never Used Second Hand Smoke Exposure: No Advance Directives Date on File: 02/24/24 service: No Current occupational status: retired Cognitive needs: No Hearing needs: No Vision needs: Yes (wear glasses) Questionnaire PHQ-9 Over the last 2 weeks, how often have you been bothered by any of the following problems? 1. Little interest or pleasure in doing things: not at all 2. Feeling down, depressed, or hopeless: not at all 3. Trouble falling or staying asleep, or sleeping too much: several days 4. Feeling tired or having little energy: not at all 5. Poor appetite or overeating: not at all 6. Feeling bad about yourself - or that you are a failure or have let yourself or your family down: not at all 7. Trouble concentrating on things, such as reading the newspaper or watching television: not at all 8. Moving or speaking so slowly that other people could have noticed. Or the opposite - being so fidgety or restless that you have been moving around a lot more than usual: not at all 9. Thoughts that you would be better off or of hurting yourself in some way: not at all Total score: 1 Depression Screening Interpretation: Negative Depression Screening Done: Yes 81836 - PHQ-9 Billing: Yes Source: Developed by Drs. Fredy Singer, Chetna Figueroa, Farzad Watson and colleagues, with an educational al from [employer]. Thrive Questionnaire Date Thrive assessed: 07/05/25 I am a: Patient What is your living situation today?: I have a steady place to live Within the past 12 months, did the food you bought not last and you didn't have the money to get more?: Never true Within the past 12 months, did you worry whether your food would run out before you got money to buy more?: Never true Do you have trouble paying for medicines?: No Do you have trouble getting transportation to medical appointments?: No Do you have trouble paying your heating and electricity bill?: No Do you have trouble taking care of your child, family member or friend?: No Do you have trouble with day-to-day activities such as bathing, preparing meals, shopping, managing finances, etc.?: No Are you currently unemployed and looking for a job?: No Are you interested in more education?: No Please select the resources that you would like help with: None Currently or been in a relationship where the following occur: No concerns reported THRIVE Score: 0 AUDIT C Alcohol Use Questionnaire (AUDIT-C) 1. How often do you have a drink containing alcohol?: 4 or more times a week 2. How many drinks containing alcohol do you have on a typical day when you are drinking?: 1 or 2 3. How often do you have six or more drinks on one occasion?: Never Total Score: 4 Score Reviewed/Action Taken: Yes TEOFILO-7 AMB Questionnaire TEOFILO-7 Date TEOFILO - 7 assessed: 07/05/25 Feeling nervous, anxious, or on edge: 1 = Several days Not being able to stop or control worryin = Not at all Worrying too much about different things: 1 = Several days Trouble relaxin = Not at all Being so restless that it is hard to sit still: 0 = Not at all Becoming easily annoyed or irritable: 0 = Not at all Feeling afraid as if something awful might happen: 1 = Several days Total TEOFILO-7 score (0-4 normal; 5-9 mild; 10-14 moderate; 15-21 severe): 3 Source: Developed by Drs. Fredy Singer, Chetna Figueroa, Farzad Watson and colleagues, with an educational al from [employer]. TEOFILO-7 Assessment Billing TEOFILO-7 Assessment Tool: TEOFILO-7 Assessment 92059 Physical exam (Primary Care) Vital Signs: Last Vital Signs Temp 97.2 F 07/05/25 09:54 Pulse 76 07/05/25 09:54 Resp 13 07/05/25 09:54 BP 140/80 H 07/05/25 09:54 Pulse Ox 99 07/05/25 09:54 Oxygen Delivery Method Room Air 07/05/25 09:54 BMI result Body Mass Index 27.9 Tobacco/Smoking Status: Tobacco use Status Tobacco use date assessed 07/05/25 07/05/25 09:52 Patient Tobacco Use Status Never used Tobacco 07/05/25 09:56 e-Cigarette/Vaping Use Never Used 07/05/25 09:56 PHQ-9: PHQ-9 Score PHQ-9: Total score 1 07/05/25 09:52 Depression Screening Interpretation: Negative Thrive Assessment: Date of Thrive Assessment Date Thrive assessed 07/05/25 07/05/25 09:52 Currently or been in a relationship where the following occur: No concerns reported Coding Level of Care Code New Pt Level 4 (01626) Complex EM visit Add On G2211 Diagnoses Encounter to establish care with new provider Z76.89 S/P repair of paraesophageal hernia Z98.890; Z87.19 Chronic GERD K21.9 Menopause Z78.0 Hot flashes R23.2 Family history of Tina thyroiditis Z83.49 Colon cancer screening Z12.11 Additional Codes TEOFILO-7 Assessment Billing - TEOFILO-7 Assessment Tool: TEOFILO-7 Assessment 88389 ([id number]) PHQ-9 - 94736 - PHQ-9 Billing: Yes ([id number]) Assessment & Plan Assessment & Plan (1) Encounter to establish care with new provider: Code(s): Z76.89 - Persons encountering health services in other specified circumstances (2) S/P repair of paraesophageal hernia: Onset Date: 2023 Code(s): Z98.890 - Other specified postprocedural states; Z87.19 - Personal history of other diseases of the digestive system Category: Medical (3) Chronic GERD: Code(s): K21.9 - Gastro-esophageal reflux disease without esophagitis Category: Medical (4) Menopause: Code(s): Z78.0 - Asymptomatic menopausal state Category: Medical (5) Hot flashes: Code(s): R23.2 - [place] Category: Medical (6) Family history of Tina thyroiditis: Code(s): Z83.49 - Family history of other endocrine, nutritional and metabolic diseases Category: Medical (7) Colon cancer screening: Code(s): Z12.11 - Encounter for screening for malignant neoplasm of colon Category: Medical Plan . Orders: Orders Complete Blood Count no Diff Today R23.2 - [place] Comprehensive Met. Panel Today R23.2 - [place] Ferritin Today R23.2 - [place] Lipid Panel Today R23.2 - [place] Microalbumin, Random (w Creat) Today R23.2 - [place] TSH reflex Free T4 Today R23.2 - [place] Vitamin B12 and Folate Today R23.2 - [place] Vitamin D 25-OH Total Today R23.2 - [place] Magnesium Today R23.2 - [place] Hemoglobin A1c Today R23.2 - [place] IRON PROFILE Today R23.2 - [place] Thyroid Peroxidase Antibodies Today Z83.49 - Family history of other endocrine, nutritional and metabolic diseases Referrals Cologuard Test Z12.11 - Encounter for screening for malignant neoplasm of colon, Z12.12 - Encounter for screening for malignant neoplasm of rectum
[2025-07-05 09:54] VITALS: BP 140/80; PULSE 76; RESP 13; TEMP 36.2; O2SAT 99; BMI 27.9
== END 2025-07-05 10:34 | disposition home or self-care (01) ==
LOC: HO.HMCFM 09:41
PROVIDERS: PCP Nurse Practitioner Family; Visit Provider Nurse Practitioner Family
DX: Z76.89 Persons encountering health services in other specified circumstances (principal); Z98.890 Other specified postprocedural states; Z87.19 Personal history of other diseases of the digestive system; K21.9 Gastro-esophageal reflux disease without esophagitis; Z78.0 Asymptomatic menopausal state; R23.2 Flushing; Z83.49 Family history of other endocrine, nutritional and metabolic diseases; Z12.11 Encounter for screening for malignant neoplasm of colon

== ENCOUNTER 2025-07-05 09:40 | Outpatient (REF) | payer MEDICARE, SELFPAY ==
[2025-07-05 14:14] LABS: Hematocrit 43.2 % (37.0-47.0); Hemoglobin 14.0 g/dl (12.0-16.0); Mean Corpuscular HGB Conc 32.4 g/dl (31.0-35.0); Mean Corpuscular Hemoglobin 31.0 pg (27.0-33.0); Mean Corpuscular Volume 95.6 fL (80.0-98.0); NRBC Abs Auto 0.000 X10*3/uL (0.0-0.012); NRBC Pct Auto 0.0 /100WBC (0.0-0.2); Platelet Count 292 X10*3/uL (160-400); Red Blood Count 4.52 X10*6/uL (4.20-5.50); White Blood Count 6.6 X10*3/uL (4.8-10.8)
[2025-07-05 14:38] LABS: Alanine Aminotransferase 26 U/L (0-31); Albumin Level 4.2 g/dL (3.5-5.0); Alkaline Phosphatase 174 U/L (39-117); Anion Gap 12 (12-20); Aspartate Amino Transferase 32 U/L (5-31); Blood Urea Nitrogen 10 mg/dL (9-16); Calcium 9.2 mg/dL (8.4-10.2); Carbon Dioxide 26 mmol/L (22-29); Chloride 107 mmol/L (96-108); Cholesterol 158 mg/dL (<200); Estimated Glomerular Filt Rate > 60; HDL Cholesterol 63 mg/dL (>40); Iron 95 mcg/dL (30-160); Magnesium 2.0 mg/dL (1.6-2.6); Percent Iron Saturation 33 % (15-50); Potassium 4.2 mmol/L (3.3-5.1); Sodium 141 mmol/L (135-145); Total Iron Binding Capacity 288 mcg/dL (228-428); Total Protein 6.7 g/dL (6.5-8.0); Triglycerides 62 mg/dL (<150); Unsaturated Iron Binding 193 ug/dL
[2025-07-05 14:48] LABS: Hemoglobin A1C 140.7952 umol/L; Total Hemoglobin (HGBA1C) 3748.2580 umol/L
[2025-07-05 14:55] LABS: Ferritin 74 ng/mL (10-250)
[2025-07-05 14:59] LABS: Folate 16.2 ng/mL (> or = 4.0); Vitamin B12 266 pg/mL (200-900)
[2025-07-05 16:06] LABS: Gamma Glutamyl Transpeptidase 19 U/L (7-33)
[2025-07-06 08:29] LABS: HBS Num1 0.00 mIU/mL (0-7.99); HBc Num1 0.17 S/CO (0.00-0.79); HBsAGNum1 0.48 S/CO (0.00-0.99); HIV Num 1 0.06 S/CO (0.00-0.99); Hepatitis A Antibody IgM 0.21 Index (0-0.79); Hepatitis B Surface Antigen Negative (Negative); ~HepC Num1 0.11 S/CO (0.00-0.79); ~Hepatitis A Antibody IgM Nonreactive (Nonreactive); ~Hepatitis B Surface Antibody NONREACTIVE (Nonreactive); ~Hepatitis C Antibody Nonreactive (Nonreactive)
== END 2025-07-05 09:41 | disposition home or self-care (01) ==
LOC: HO.WFDLDS 09:40
PROVIDERS: PCP Nurse Practitioner Family; Visit Provider Nurse Practitioner Family
DX: K21.9 Gastro-esophageal reflux disease without esophagitis (principal); N95.1 Menopausal and female climacteric states; R74.8 Abnormal levels of other serum enzymes; R23.2 Flushing; F41.9 Anxiety disorder, unspecified; Z87.19 Personal history of other diseases of the digestive system; Z83.49 Family history of other endocrine, nutritional and metabolic diseases; Z76.89 Persons encountering health services in other specified circumstances; Z98.890 Other specified postprocedural states
CPT/HCPCS: 36415; 80053; 80061; 82306; 82570; 82607; 82728; 82746; 82977; 83036; 83540; 83735; 84443; 85027; 85652; 86376; 86704; 86706; 86709; 86803; 87340; 87389; 96127; 99202

== ENCOUNTER 2025-07-05 15:38 | Outpatient (REF) | payer MEDICARE, SELFPAY | END 2025-07-05 15:39 | disposition home or self-care (01) | LOC: HO.LAB 15:38 | PROVIDERS: Visit Provider Nurse Practitioner Family | DX: Z13.89 Encounter for screening for other disorder (principal) ==

== ENCOUNTER 2025-10-22 09:00 | Outpatient (AMB) | payer MEDICARE, SELFPAY ==
--- NOTE | 2025-10-22 09:07 | A.OFFVIS_ITS ---
Intake Vital Signs 10/22/25 09:12 Height 5 ft 7 in Weight 178 lb BMI 27.9 BP 105/68 Blood Pressure Location Lt brachial Position Sitting Respiration 12 Pulse 75 Pulse Source Pulse Oximeter Temp 97.4 F Temp Source Oral Pulse Oximetry (%) 97 Oxygen Delivery Method Room Air Intake Visit Reasons: Dec CPE Intake Note: AWV. Animal Husbandman Required: No Allergies No Known Allergies (No Known Allergies*) Allergy (Verified 10/22/25 09:08) Medication List - Last Reconciled 10/22/25 by Mariia Martinez, [facility]- famotidine 20 mg PO BEDTIME Do you need a note to return to daycare/school/sports/work: No HPI HPI Comments History of Present Illness Details Here today for AWV. The Medicare Annual Wellness Visit (AWV) is a yearly appointment with a health professional to identify health risks and help reduce them and to create or update a personalized prevention plan. During a Medicare AWV, health professionals should also review any current opioid prescriptions, detect any cognitive impairment, and establish or update medical and family history. 65 y/o F with Multilevel cervical spondy losis including advanced C4-C5 and C5-C6 degenerative cervical disc disease, chronic GERD, menopause, elevated alk phos, incomplete RBBB, Eczema SurgHx: S/P repair of paraesophageal hernia FHx: Y SocHx: , retired, has children and grandchildren Health Maintenance: Colon: cologaurd negative 09/2025, repeat 2027 Mammo: 2022, [facility] to be ordered by VASCULAR TECHNOLOGIST SONOGRAPHER DEXA : to be ordered by VASCULAR TECHNOLOGIST SONOGRAPHER last time long time ago PAP active w/ VASCULAR TECHNOLOGIST SONOGRAPHER Vaccines: tdap 2018, Declined flu 10/22/25, declined shingles and pneumococcal vaccines AAA screen: NA EKG: Done in the office today incomplete right bundle-branch block otherwise normal sinus rhythm Gibson of Care: VASCULAR TECHNOLOGIST SONOGRAPHER Derm Visual Acuity: glasses last exam overdue, will schedule Hearing Screening: no concerns ACP: Y to HCP, blanks of MOLST and HCP provided today w/ education Dietary/Nutrition/Exercise Edu provided: Y During the course of the visit the patient was educated and counseled about appropriate screening and preventative services. Patient instructions were provided to the patient in written or electronic format. I have reviewed and verified the above information. History of Present Illness The patient is a 65 year old female presenting for an annual Medicare wellness visit. Vasomotor symptoms: - The patient reports recurrent hot flas hes, which have improved since June but still occur. - These episodes are now associated with feeling nervous or as if something is wrong. - Her thyroid was checked in June and was on the low end of normal. - She wondered previously about trying m agnesium but has not yet started it. Incomplete right bundle branch block: - An EKG performed today revealed an inc omplete right bundle branch block. - She reports experiencing occasional, s hort-lived palpitations not associated with exertion. - She denies any associated chest pain o r shortness of breath with exertion. Elevated alkaline phosphatase: - The patient has a history of elevated alkaline phosphatase, which has been a trend in her lab work. - Her liver function tests were normal - She is due for a bone density scan. Chronic GERD: - She has a history of chronic GERD and takes famotidine for management. Rash: - The patient has an itchy rash on her b ack, of unknown duration. - She has a similar rash on her lower le g, for which she has previously seen a director title and received injections and a cream. - The prior treatment provided some impr ovement. Past Medical History - Chronic gastroesophageal reflux diseas e, managed with famotidine. - History of elevated alkaline phosphata se. - History of difficult recovery from ane sthesia post-surgery. Social History - The patient reports getting some exerc ise. - She reports no hazards in the home. - She takes only famotidine and no other medications. - She denies any problems with driving. Health Maintenance - Electrocardiogram: Completed today, sh owing an incomplete right bundle branch block. - Colon Cancer Screening: Completed a Co loguard test in September, which was normal. She is to repeat in 3 years. - Mammogram: Last performed in 2022. - Bone Density Scan: Overdue, she will h ave her VASCULAR TECHNOLOGIST SONOGRAPHER order the test. - Eye Exam: Overdue, will schedule. - Vaccinations: Declines flu and pneumon ia vaccinations. - Advance Directives: Patient counseled on the importance of a healthcare proxy and a MOLST form. She was provided with blank copies to complete. Review of Systems - Constitutional: Reports recurrent hot flashes and occasional fatigue, particularly after childcare. - Cardiovascular: Reports occasional, br ief palpitations. Denies chest pain or shortness of breath on exertion. - Gastrointestinal: Reports occasional e parul satiety. Denies changes in bowel or bladder habits. - Skin: Reports an itchy rash on her zack k and lower leg. - HEENT: Reports a recent cold last week . Denies hearing problems. - Neurological: Reports occasional, infr equent headaches. - Psychiatric: Reports feeling nervous o r emotional in association with hot flashes. Physical Exam General: Well developed, well nourished, in no acute distress. Appears stated age. Head: Normocephalic, atraumatic. Eyes: Pupils are equal, round and reactive to light and accommodation. Conjunctivae are clear. Scleras nonicteric bilat. Vision grossly normal. Ears: TMs clear AU, EACS WNL. A little fluid behind both ears, but no infection. Nose: Patent, without discharge. Some fluid noted, likely due to a recent cold. Neck: No carotid bruit bilat. Supple, no adenopathy or thyromegaly. Breast: Edu on SBE Lungs: Clear to auscultation bilaterally. No rales, rhonchi or wheeze noted. Good air flow in all gale. Heart: Regular rate and rhythm. No murmurs, click, rubs or gallops are noted. EKG shows incomplete right bundle branch block. Abdomen: Bowel sounds present in all quadrants. The abdomen is soft, nontender, with no masses or organomegaly noted. No hernias are noted. : Deferred. Reviewed recommendations for routine VASCULAR TECHNOLOGIST SONOGRAPHER Pulses: Peripheral pulses are equal and palpable bilaterally. Extremities: No clubbing, cyanosis nor edema is noted. Some skin irritation noted, similar to psoriasis, on the back and lower legs. Neurologic: Gait and station normal. Cranial Nerves 2-12 intact. Motor strength grossly symmetrical and intact. No sensory loss. Balance normal. Skin: No rashes, ulcers, or lesions noted. Turgor is good. Skin color is good. Hair and nails are without abnormalities. Eczema like rash noted to R shoulder & anterior lower legs. Psych: Normal eye contact, affect and mood appropriate, and normal interactions. Patient is alert and appropriate to context. Feeling moderately emotional at times, particularly during hot flashes. Results - EKG: Today's EKG shows an incomplete r ight bundle branch block. - Labs (June 2025): TSH was 0.95 (low normal), magnesium was normal, and alkaline phosphatase was elevated, consistent with prior trends. - Cologuard (September): Normal. Medical Decision Making The patient is a 65-year-old female here for her annual wellness visit with several items for discussion. Her primary complaint is recurrent hot flashes, now associated with anxiety-like symptoms. Given her prior TSH was on the low end of normal, and magnesium can sometimes help these symptoms, we will start w ith a trial of OTC magnesium oxide 400 mg. If this is ineffective, we will proceed with repeat labs prior to her follow-up appointment. An EKG today revealed a new finding of an incomplete right bundle branch block. While this is often a benign finding, her associated report of occasional palpitations warrants further investigation to ensure there is no underlying structural heart disease. Therefore, I have ordered an echocardiogram and a stress test for a comprehensive cardiac evaluation. The patient has an itchy rash on her back and leg, which she notes is similar to a prior condition treated by dermatology, possibly eczema.. I have prescribed a topical steroid cream for symptomatic relief and strongly advised her to follow up with her director title for definitive diagnosis and management. We also reviewed her health maintenance. She is up to date on her colon cancer screening but is overdue for a bone density scan, which is particularly relevant given her chronically elevated alkaline phosphatase. She will arrange this through her VASCULAR TECHNOLOGIST SONOGRAPHER. We also addressed the importance of completing her advance directives. Plan 1. Annual Medicare Wellness Visit - Health maintenance screenings were rev iewed. - The patient is overdue for a bone dens ity scan and an eye exam, which she will schedule. - The patient declines influenza and pne umococcal vaccinations. - Discussed advance care planning and pr ovided the patient with blank Healthcare Proxy and MOLST forms for completion. 2. Vasomotor Symptoms - The patient will begin a trial of over -the-counter magnesium oxide 400 mg once daily at bedtime. - She will follow up in 4-6 weeks to ass ess for improvement. - If symptoms do not improve, she is to send a message, and blood work will be ordered prior to her follow-up visit. 3. Incomplete Right Bundle Branch Block - Due to the new EKG finding and the pat ient's report of palpitations, a cardiology workup is indicated for further evaluation. - Orders have been placed for an echocar diogram and a stress test. - The outpatient cardiology department w ill contact the patient for scheduling. - Will follow up with the patient once r esults are available. 4. Rash - Prescribed a topical steroid cream (be tamethasone) to be applied to the affected areas on her back and leg twice daily as needed. - Advised to follow up with her dermatol ogist for further evaluation and management. 5. Elevated Alkaline Phosphatase - The finding is noted in the context of her being overdue for a bone density scan. - The patient will arrange for a bone de nsity scan through her VASCULAR TECHNOLOGIST SONOGRAPHER office. 6. Chronic Gerd - The patient's condition is stable on h er current regimen. - Continue famotidine as prescribed. Patient Instructions - You can buy Magnesium Oxide 400 mg ove r the counter. Take one tablet at bedtime for your hot flashes. Be sure to get Magnesium Oxide, not Magnesium Citrate. - The cardiology department will call francisco arellano to schedule an echocardiogram and a stress test. Please complete these tests. - A prescription for a cream has been se nt to your pharmacy. Apply it to the itchy rashes on your back and leg twice a day as needed. - Please schedule an appointment with francisco chamorro director title to have the rashes checked. - Schedule your overdue bone density sca n and eye exam. - Please review and complete the blank ealthcare Proxy and MOLST (pink form) documents. Discuss your wishes with your family and bring the completed forms to your next visit. - Schedule a follow-up appointment in 4 to 6 weeks to review your progress. - If the cream for your rash is not work ing within two weeks, or the rash worsens, please let me know. Consent Patient was informed and verbally consented to the use of an ambient scribe for clinic note documentation during this visit. An additional 30 minutes was spent addressing the problem(s) noted at todays visit. This includes time spent before the visit reviewing the chart, time spent during the visit, and time spent after the visit on documentation reviewing laboratory results, diagnostic imaging, medications, performing a medically necessary evaluation, counseling on diagnoses, care coordination, ordering appropriate tests, ordering appropriate medications, review of tests performed by other providers, reporting test results with the patient, communication with other healthcare providers. [facility] Medical History (Updated 10/22/25 @ 10:02 by Mariia Martinez, APPOINTMENT SPECIALIST-) Hernia (~2023) Hx of mammogram (~2022) No pertinent past medical history Paraesophageal hernia Pneumonia Sinusitis Surgical History (Updated 10/05/25 @ 12:26 by Mariia Martinez [facility]) H/O wrist surgery (~1984) History of repair of hiatal hernia (~2023) Family History (Updated 07/05/25 @ 10:00 by Farazneh Meier MA) Father Diabetes Lung cancer Mother Breast cancer Sister Leukemia Father No problems noted. Brother Leukemia Social History (Updated 07/05/25 @ 09:56 by Farzaneh Meier MA) Household Members: Spouse and Children Both parents involved: No Caregiver staying overnight: No Housing: House Are you a primary transitions rn care coordinator to a significant other at home: Yes Do you presently have visiting nurse or other home services: No 75 years or older and lives alone: No Alcohol intake: current Alcohol intake frequency: a few times a month Patient Tobacco Use Status: Never used Tobacco e-Cigarette/Vaping Use: Never Used Second Hand Smoke Exposure: No Advance Directives Date on File: 02/24/24 service: No Current occupational status: retired Cognitive needs: No Hearing needs: No Vision needs: Yes (wear glasses) Questionnaire Medicare Wellness Checkup What [age] your [age]?: 65-69 What gender do you identify with?: female During the past 4 weeks, how much have you been bothered by emotional problems such as feeling anxious, depressed, irritable, sad or downhearted, and blue?: moderately During the past 4 weeks, has your physical & emotional health limited your social activities with family, friends, neighbors, or groups?: not at all During the past 4 weeks, how much bodily pain have you generally had?: very mild pain During the past 4 weeks, was someone available to help you if you needed & wanted help?: yes, as much as I wanted During the past 4 weeks, what was the hardest physical activity you could do for at least 2 minutes?: heavy Can you get to places out of walking distance without help? (For eg., can you travel alone on buses, taxis or drive your car?): Yes Can you go shopping for groceries or clothes without someone's help?: Yes Can you prepare your own meals?: Yes Can you do your housework without help?: Yes Because of any health problems, do you need the help of another person with your personal care needs such as eating, bathing, dressing or getting around the house?: No Can you handle your own money without help?: Yes During the past 4 weeks, how would you rate your health in general?: very good During the past 4 weeks how have things been going for you?: pretty well Are you having difficulties driving your car?: no Do you always fasten your seat belt when you are in a car?: yes, usually During past 4 weeks, have you been bothered by the following: never: Falling or dizzy when standing up, Sexual problems?, Trouble eating well?, Teeth or denture problems? and Problems using the telephone? and seldom: Tiredness or fatigue? Have you fallen 2 or more times in the past year?: No Are you afraid of falling?: No Are you a smoker?: no During the past 4 weeks, how many drinks of wine, beer, or other alcoholic beverages did you have?: 6-9 drinks per week Do you exercise for about 20 minutes 3 or more times a week?: yes, some of the time Have you been given information to help with the following?: no: Hazards in your house that might hurt you? and no: Keeping track of your medications? How often do you have trouble taking medicines the way you have been told to take them?: I always take medicine as prescribed How confident are you that you can control & manage most of your health problems?: very confident What is your race?: White Activity of Daily Living Bathing - sponge bath, tub bath or shower: receives no assistance (gets in/out by self, if usual bathing means Dressing - getting clothes from closets & drawers, including inner/outer garment s & fasteners.: gets clothes & gets completely dressed without help Toileting - going to the 'toilet room' for urine/bowel elimination & cleaning self/arranging clothes: goes to toilet room, cleans self, arranges clothes without help Transfer: moves in & out of bed and chair without help (may use support object) Continence: controls urination/bowel movements completely by self Feeding: feeds self without help Total Score: 0 Information obtained from: patient Using telephone: independent Traveling: independent Shopping: independent Preparing meals: independent Housework: independent Taking medicine: independent Managing money: independent PHQ-9 Over the last 2 weeks, how often have you been bothered by any of the following problems? 1. Little interest or pleasure in doing things: not at all 2. Feeling down, depressed, or hopeless: not at all 3. Trouble falling or staying asleep, or sleeping too much: not at all 4. Feeling tired or having little energy: not at all 5. Poor appetite or overeating: not at all 6. Feeling bad about yourself - or that you are a failure or have let yourself or your family down: not at all 7. Trouble concentrating on things, such as reading the newspaper or watching television: not at all 8. Moving or speaking so slowly that other people could have noticed. Or the opposite - being so fidgety or restless that you have been moving around a lot more than usual: not at all 9. Thoughts that you would be better off or of hurting yourself in some way: not at all Total score: 0 Depression Screening Interpretation: Negative Depression Screening Done: Yes 00643 - PHQ-9 Billing: Yes Source: Developed by Drs. Fredy Singer, Chetna Figueroa, Farzad Watson and colleagues, with an educational al from [employer]. Physical Exam Vital Signs: Last Vital Signs Temp 97.4 F 10/22/25 09:12 Pulse 75 10/22/25 09:12 Resp 12 10/22/25 09:12 BP 105/68 10/22/25 09:12 Pulse Ox 97 10/22/25 09:12 Oxygen Delivery Method Room Air 10/22/25 09:12 BMI result Body Mass Index 27.9 Office Procedures EKG [id number], Complete Vision Screening Right Eye: 20/25 Left Eye: 20/25 Bilateral: 20/25 Color: Pass Corrected: Pass (wearing glasses) 77520 - Vision Screening Assessment & Plan Assessment & Plan (1) Encounter for annual wellness visit (AWV) in Medicare patient: Onset Date: ~10/22/25 Code(s): Z00.00 - Encounter for general adult medical examination without abnormal findings (2) ACP (advance care planning): Code(s): Z71.89 - Other specified counseling (3) Incomplete right bundle branch block (RBBB) determined by electrocardiography: Onset Date: ~10/22/25 Code(s): I45.10 - Unspecified right bundle-branch block (4) History of colonoscopy: Onset Date: ~09/2025 Comment: cologuard negative Code(s): Z98.890 - Other specified postprocedural states (5) Rash: Comment: [facility] Code(s): R21 - Rash and other nonspecific skin eruption (6) Hot flashes: Code(s): R23.2 - Flushing (7) Elevated alkaline phosphatase level: Code(s): R74.8 - Abnormal levels of other serum enzymes Plan . Orders: Orders CA echo transthoracic complete Today I45.10 - Unspecified right bundle-branch block CA stress test Today I45.10 - Unspecified right bundle-branch block NM cardiolite stress test Today I45.10 - Unspecified right bundle-branch block Medications: New betamethasone dipropionate 0.05% 1 appl topical BID PRN 45 grams 2RF skin irritation Patient Instructions: Health screenings for women You should visit your health care provider from time to time, even if you are healthy. The purpose of these visits is to: Screen for medical issues Assess your risk for future medical problems Encourage a healthy lifestyle Update vaccinations and other preventive care services Help you get to know your provider in case of an illness Information Even if you feel fine, you should still see your provider for regular checkups. These visits can help you avoid problems in the future. For example, the only way to find out if you have high blood pressure is to have it checked regularly. High blood sugar and high cholesterol levels also may not have any symptoms in the early stages. A simple blood test can check for these conditions. There are specific times when you should see your provider or receive specific health screenings. The [place] Preventive Services Task Force publishes a list of recommended screenings. Below are screening guidelines for women ages 18 to 39. BLOOD PRESSURE SCREENING Your blood pressure should be checked at least once every 3 to 5 years if: Your blood pressure is in the normal range (top number less than 120 mm Hg and bottom number less than 80 mm Hg) You don't have risk factors for high blood pressure Ask your provider if you need your blood pressure checked more often if: The top number is 120 to 129 mm Hg or the bottom number is 70 to 79 mm Hg You have diabetes, heart disease, kidney problems, are overweight, or have cert ain other health conditions You have a first-degree relative with high blood pressure You are Black You had high blood pressure during a If the top number is 130 mm Hg or greater or the bottom number is 80 mm Hg or greater, this is considered stage 1 hypertension. Schedule an appointment with your provider to learn how you can reduce your blood pressure. Watch for blood pressure screenings in your area. Ask your provider if you can stop in to have your blood pressure checked. BREAST CANCER SCREENING Experts do not agree about the benefits of breast self-exams in finding breast cancer or saving lives. Talk to your provider about what is best for you. A screening mammogram is not recommended for most women under age 40. Your provider may discuss and recommend mammograms, MRI scans, or ultrasounds if you have an increased risk for breast cancer, such as: A mother or sister who had breast cancer at a young age (most often starting screening earlier than the age the close relative was diagnosed) You carry a high-risk genetic marker CERVICAL CANCER SCREENING Cervical cancer screening should start at age 21 years unless your provider advises otherwise. After the first test: Women ages 21 through 29 should have a Pap test every 3 years. Exoprts do not agree on whether HPV testing is recommended for this age group. Women ages 30 through 65 should be screened with either a Pap test every 3 years or the HPV test every 5 years or both tests every 5 years (called cotesting ). Women who have been treated for precancer (cervical dysplasia) should continue to have Pap tests for 20 years after treatment or until age 65, whichever is longer. If you have had your uterus and cervix removed (total hysterectomy), and you have not been diagnosed with cervical cancer or precancer (high grade cervical neoplasia), you do not need cervical cancer screening. CHOLESTEROL SCREENING Cholesterol screening should begin at: Age 45 for women with no known risk factors for coronary heart disease Age 20 for women with known risk factors for coronary heart disease Repeat cholesterol screening should take place: Every 5 years for women with normal cholesterol levels More often if changes occur in lifestyle (including weight gain and diet) More often if you have diabetes, heart disease, kidney problems, or certain other conditions DIABETES SCREENING You should be screened for diabetes starting at age 35 and then repeated every 3 years if you have no risk factors for diabetes. Screening may need to start earlier and be repeated more often if you have other risk factors for diabetes, such as: You have a first degree relative with diabetes. You are overweight or have obesity. You have high blood pressure, prediabetes, or a history of heart disease. Screening for diabetes should be done if you are planning to become and you are overweight and have other risk factors such as high blood pressure. DENTAL EXAM Go to the dentist once or twice every year for an exam and cleaning. Your dentist will evaluate if you need more frequent visits. EYE EXAM Have an eye exam every 5 to 10 years before age 40. If you have vision problems, have an eye exam every 2 years or more often if recommended by your provider. You should have an eye exam that includes an examination of your retina (back of your eye) at least every year if you have diabetes. IMMUNIZATIONS Commonly needed vaccines include: Flu shot: get one every year. COVID-19 vaccine: ask your provider what is best for you. Tetanus-diphtheria and acellular pertussis (Tdap) vaccine: have one at or after age 19 as one of your tetanus-diphtheria vaccines if you did not receive it as an adolescent. Tetanus-diphtheria: have a booster (or Tdap) every 10 years. Varicella vaccine: receive 2 doses if you never had chickenpox or the varicella vaccine. Hepatitis B vaccine: receive 2, 3, or 4 doses, depending on your exact circumstances. Measles, mumps, and rubella (MMR) vaccine: receive 1 to 2 doses if you are not already immune to MMR. Your provider can tell you if you are immune. Ask your provider about the human papillomavirus (HPV) vaccine if: You have not received the HPV vaccine in the past You have not completed the full vaccine series (you should catch up on this shot) Ask your provider if you should receive other immunizations if you have certain health problems that increase your risk for some diseases such as pneumonia. INFECTIOUS DISEASE SCREENING Women who are sexually active should be screened for chlamydia and gonorrhea up until age 25. Women 25 years and older should be screened for chlamydia and gonorrhea if at high risk. Screening for hepatitis C: All adults ages 18 to 79 should get a one-time test for hepatitis C. people should be screened at every . Screening for human immunodeficiency virus (HIV): All people ages 15 to 65 should get a one-time test for HIV. Depending on your lifestyle and medical history, you may also need to be screened for infections such as syphilis and HIV, as well as other infections. PHYSICAL EXAM All adults should visit their provider from time to time, even if they are healthy. The purpose of these visits is to: Screen for disease Assess your risk of future medical problems Encourage a healthy lifestyle Update your vaccinations and other preventive care services Maintain a relationship with a provider in case of an illness Your height, weight, and BMI should be checked at every exam. During your exam, your provider may ask you about: Depression and anxiety Diet and exercise Alcohol and tobacco use Safety issues, such as using seat belts, smoke detectors, and intimate partner violence Your medicines and risk for interactions SKIN SELF-EXAM Your provider may check your skin for signs of skin cancer, especially if you're at high risk, such as if you: Have had skin cancer before Have close relatives with skin cancer Have a weakened immune system OTHER SCREENING Talk with your provider about colon cancer screening if you have a strong family history of colon cancer or polyps, or if you have had inflammatory bowel disease or polyps yourself. Routine bone density screening of women under 40 is not recommended. Quality Reporting (2020) Adult ([facility] 138/01/09/69) Smoking risk assessment performed?: Yes Patient Tobacco Use Status: Never used Tobacco Depression screening performed: Yes Screen Results: Yes Negative screen Systolic BP not done?: No Diastolic BP not done?: No BMI screening not done: No Sexual Activity Screening ([facility] 153) Sexually active?: Yes Immunizations ([facility] 147, 117) Annual Influenza Vaccine: No Flu Vaccine not done: patient reason Measles Antibody Test: No Mumps Antibody Test: No Rubella Antibody Test: No Varicella Antibody Test: No Anti Hepatitis A IgG Antigen test: No Anti Hepatitis B Virus Surface Ab test: No Fall Risk Screening ([facility] 139) Last assessed Fall Risk: 10/22/25 Fall risk assessment: 1 Fall in past year Dementia Assessment ([facility] 149) Cognitive assessment recorded: Yes Assessment of cognition with standardized tool: Yes Depression/Bipolar (159/160/161/177) PHQ-9: Total score: 0 Ophthalmol:Cataracts Visual Acuity (133) Visual acuity exam performed: Yes Coding Level of Care Code Medicare Subsequent (G0439) Est Pt Level 4 (75657) Diagnoses Encounter for annual wellness visit (AWV) in Medicare patient Z00.00 ACP (advance care planning) Z71.89 Incomplete right bundle branch block (RBBB) determined by electrocardiography I45.10 History of colonoscopy Z98.890 Rash R21 Hot flashes R23.2 Elevated alkaline phosphatase level R74.8 CPT Codes Advance Care Planning - Time spent: 1-15 minutes, not on file ([id number]) EKG - CPT: 80261-[id number], Complete ([id number]) Vision Screening - Vision Screenin - Vision Screening ([id number]) Additional Codes PHQ-9 - 61332 - PHQ-9 Billing: Yes ([id number]) Advance Care Planning Advance Care Planning discussion: Exists, not on file Date of discussion: 10/22/25 Who was present: self Forms completed: Health Care Proxy, MOLST and Living will Time spent: 1-15 minutes, not on file Actual minutes spent: 16
[2025-10-22 09:12] VITALS: BP 105/68; PULSE 75; RESP 12; TEMP 36.3; O2SAT 97; BMI 27.9
== END 2025-10-22 10:05 | disposition home or self-care (01) ==
LOC: HO.HMCFM 09:02
PROVIDERS: PCP Nurse Practitioner Family; Visit Provider Nurse Practitioner Family
DX: Z00.00 Encounter for general adult medical examination without abnormal findings (principal); I45.10 Unspecified right bundle-branch block; R21 Rash and other nonspecific skin eruption; R23.2 Flushing; R74.8 Abnormal levels of other serum enzymes; Z71.89 Other specified counseling

== ENCOUNTER → 2025-10-22 09:00 | Outpatient (BNVA) | payer MEDICARE, SELFPAY | PROVIDERS: PCP Nurse Practitioner Family; Visit Provider Nurse Practitioner Family | DX: Z00.00 Encounter for general adult medical examination without abnormal findings (principal); Z71.89 Other specified counseling; R74.8 Abnormal levels of other serum enzymes; I45.10 Unspecified right bundle-branch block; R21 Rash and other nonspecific skin eruption; R23.2 Flushing; Z98.890 Other specified postprocedural states | CPT/HCPCS: 96127; 99212 ==